=== PATIENT | female | born 1935 | race Caucasian/White ===

== ENCOUNTER 2017-04-06 13:37 | Inpatient (IN) | payer MEDICARE, SELFPAY ==
[2017-04-06 13:39] VITALS: BP 168/54; PULSE 54; RESP 16; TEMP 36.9; O2SAT 96; BMI 23.1
--- NOTE | 2017-04-06 14:00 | EKG12_ITS ---
Test Reason : DIZZINESS Blood Pressure : / mmHG Vent. Rate : 050 BPM Atrial Rate : 050 BPM P-R Int : 168 ms QRS Dur : 096 ms QT Int : 512 ms P-R-T Axes : 070 043 057 degrees QTc Int : 466 ms Sinus bradycardia Low voltage QRS (limb leads) Confirmed by LETA TURNER, CAROLYNE ([id number]), film editor supervisor VICTORIA FRANCO ([id number]) on 04/09/2017 11:22:18 AM Referred By: Shavonne Riley Confirmed By:CAROLYNE GILLETTE MD
--- NOTE | 2017-04-06 14:00 | CT_ITS ---
STUDY: CT BRAIN WITHOUT CONTRAST REASON FOR EXAM: Female, 82 years old. Frequent falls. RADIATION DOSAGE (If Supplied By Facility): CTDIvol = ( 44.99 ) mGy, DLP = ( 728.62 ) mGycm TECHNIQUE: Transaxial CT imaging of the brain was performed without administration of intravenous contrast material. Individualized dose optimization techniques were used for this CT. COMPARISON: Comparison is made with prior study dated December 29, 2012. FINDINGS: Normal soft tissue structures. Normal calvarium. There is mild cerebral atrophy with widening of the extra-axial spaces and ventricular dilatation. There are areas of decreased attenuation within the white matter tracts of the supratentorial brain, consistent with microvascular disease changes. Normal basal ganglia and thalami. Normal brainstem. There is mild cerebellar atrophy. There is no intracranial hemorrhage. There are no findings of an acute ischemic infarction. Atherosclerotic calcification of the vertebral arteries and cavernous portions of the internal carotid arteries bilaterally. Normal visualized paranasal sinuses. CT/Brain/Head without Contrast IMPRESSION: Chronic involutional changes of the brain. Electronically Signed: Earl Zheng MD at 15:03 EST Tel [phone], Service support ,
--- NOTE | 2017-04-06 14:28 | RAD_ITS ---
STUDY: X-RAY - LUMBAR SPINE REASON FOR EXAM: Female, 82 years old. History of trauma. Recent fall. Low back pain. TECHNIQUE: 3 view(s) of the lumbar spine were obtained. COMPARISON: Comparison is made with prior examination dated April 13, 2013. FINDINGS: Normal lumbar lordosis. There is no substantial scoliosis. Grade 1 anterolisthesis of L5 on S1. This is unchanged. 50% loss of height of the L3 vertebrae. This is new as compared to prior study. There is multi-level degenerative disc disease with multi-level disc space narrowing. There is atherosclerotic calcification of the abdominal aorta without a demonstrated aneurysm. RAD/Lumbar Spine 2 or 3 Views IMPRESSION: Degenerative changes of the spine, as detailed above. 50% loss of height of the L5 vertebra which is new as compared to prior study. Electronically Signed: Earl Zheng MD at 15:02 EST Tel [phone], Service support ,
[2017-04-06 14:34] LABS: Absolute Lymphocyte Count 1.82 X10^3/ul (0.83-4.51); Absolute Neutrophil Count 7.6 X10^3/uL (2.0-7.7); Basophil# 0.03 X10^3/uL; Basophil% 0.3 % (0-1); Eosinophil# 0.42 X10^3/uL; Hematocrit 34.5 % (37-47); Lymphocyte # 1.82 X10^3/ul (4.0); Lymphocyte % 17.1 % (19-41); Mean Corp Hgb Conc 31.9 g/gl (32-36); Mean Corpuscular Volume 87.8 fL (81-99); Mean Platelet Vol. 11.7 fl (6.2-12.0); Monocyte# 0.74 X10^3/uL; Neutrophil % 71.4 % (47-70); Platelet Count 220 K/mm3 (150-450); RBC Distribution Width SD 47.4 fl (35.1-43.9); Red Blood Count 3.93 M/mm3 (4.2-5.4); White Blood Count 10.6 K/mm3 (4.4-11.0)
[2017-04-06 14:40] LABS: POSITIVE COUNT NO; POSITIVE DIFFERENTIAL NO; POSITIVE MORPHOLOGY NO
[2017-04-06 14:43] LABS: AST(SGOT) 13 U/L (15-37); Alanine Aminotransfer ALT/SGPT 24 U/L (13-56); Albumin, Serum 3.2 g/dL (3.2-5.0); Alkaline Phosphatase 96 U/L (45-117); Anion Gap 10 (5-15); BUN 23 mg/dL (7-18); BUN/Creat Ratio 27.8 RATIO (10-20); Bilirubin, Direct 0.14 mg/dL (0.00-0.30); Calcium,Total 9.2 mg/dL (8.5-10.1); Chloride 109 mmol/L (98-107); Creatinine, Serum 0.83 mg/dL (0.55-1.02); EST Glomerular Filtration Rate 70 mL/min (>60); Est Glom Filt Rate - Afr Amer 85 mL/min (>60); Globulin 3.7 g/dL (2.2-4.2); Glucose 154 mg/dL (70-110); Potassium 4.5 mmol/L (3.5-5.1); Protein, Total 6.9 g/dL (6.4-8.2); Sodium Level 141 mmol/L (136-145)
[2017-04-06 15:31] LABS: Mucous, Urine 0 SEEN /hpf (<or=2+); Red Blood Cells-Urine 0 SEEN /hpf (0-5); Squamous Epithelial Cells - UA 0 SEEN /hpf (5-10); White Blood Cells 0 SEEN /hpf (0-5)
--- NOTE | 2017-04-06 15:33 | CASEMGMT ---
Addendum entered by Elsy Santos 04/06/17 16:52: Discussed with Dr. Umaña; pt's family unable to meet care needs at home, pt with recent history of multiple falls. Pt to be admitted with residential placement anticipated. Spoke with pt's son and DIL, who reported their first choice for SNF is [facility]. Referral to inpt SW completed. Original Note: Referral received from Dr. Umaña; pt's family reporting concerns regarding their ability to meet pt's care needs at home. Met with pt's dgtr to discuss. Dgtr voiced multiple concerns including fear that pt's cancer has returned. Dgtr reviewed pt's recent medical history and reported that pt is presently receiving home health PT, OT, and RN through [facility]. Dgtr resides with pt and provides 24hr care but said she is unable to hear pt moving about in the night. Discussed options for monitoring pt at home. Dgtr said that she has health concerns/physical limitations of her own and that she had been working with Yong home health social service technician, to develop a plan. Dgtr several times directed this worker to talk to Yong re: the plan for pt. Pt was in radiology during this conversation; results pending. Spoke with Yong Dunn, home health social service technician, who confirmed her understanding of dgtr's limitations as well as pt's increasing care needs, and said that she had intended to speak with dgtr re: possible residential placement. Awaiting imaging results.
[2017-04-06 15:45] VITALS: PULSE 53; RESP 12; O2SAT 97
[2017-04-06 15:56] LABS: Color, Urine Yellow (Yellow); Glucose, Dipstick Normal (Normal); Ketone-Dipstick Negative (Negative); Leukocyte Esterase-Dipstick 25 /ul (Negative); Nitrite-Dipstick Negative (Negative); Occult Blood-Urine Negative /ul (Negative); Protein-Dipstick Negative (Negative); Urine Bilirubin Dipstick Negative (Negative); Urine Clarity Sl. Cloudy (Clear); Urine Urobilinogen Normal (Normal)
[2017-04-06 16:09] LABS: Bacteria 2+ /hpf (None Seen)
--- NOTE | 2017-04-06 16:37 | ED.VISSUMM ---
- ER Visit Summary Date of Service: 04/06/17 Chief Complaint: Generalized weakness and repeated falls. History of Present Illness: The patient is a [address] Galvan. Daughter reports that she has weakness that began on March 26 that is been gradually increasing. States she has gotten to the point where she is not even able to use her walker anymore. She reports patient's had 5 falls in the past week alone. 2 days ago she fell back onto the bed while trying to get up and using the bedside commode. She fell again today. Daughter is unable to care for her at home anymore. Patient reports that she has been lower back pain is 8 out of 10 with movement and 2 out of 10 at rest. She denies any shoulder, wrist, hip, or neck pain. Physical Examination: Vitals: 98.5, 160/54, 54, 16, 96% room air which is not hypoxic. General: Well-nourished and well-developed. Head: Normocephalic atraumatic. Neck: Supple, no lymphadenopathy. No JVD. Nontender. Cardiovascular: Regular bradycardic rhythm with 2 out of 6 systolic murmur. Respiratory: No respiratory distress. Clear to auscultation bilaterally. Abdominal: Soft, nontender, nondistended, normal bowel sounds. No guarding, rebound, or peritoneal signs. Back: Moderate tenderness to palpation over the lower lumbar spine. Extremities: Nontender, no edema. Skin: Normal color, no rash. Neurologic: Alert and oriented ?3. Cranial nerves II through XII are intact. Normal sensation. 4 out of 5 strength throughout. Psych: Normal affect. Test Results: EKG is sinus bradycardia at 50 with no acute changes. LS spine shows an L5 compression fracture that is 50%. CBC is marked for an H&H of 11.0 34.5, segmented neutrophils 71, lymphocytes 17. Chem-7 is more for chloride 109, glucose 144, BUN 23. LFTs marked for an AST of 13. Urine is negative. Troponin is less than 0.02. CT brain shows chronic changes. Emergency Department Course and Treatment: Patient refused pain medications. She was seen by case management in the emergency department. Treatment Plan: At this time patient was discussed with Dr. Najera. She will be admitted to the hospital for further evaluation and treatment. Disposition: Admitted in stable condition. Impression: 1. Sinus bradycardia. 2. Repeated falls. 3. New L5 compression fracture. 4. Generalized weakness. This note was generated with [employer] dictation software. It may contain incorrect words, spelling, and punctuation that were not noted in review of the chart prior to signing ED Disposition - Plan for ED Patient: Chief Complaint: Dizziness Referrals: Christian Galvan DO [Primary Care Provider] -
[2017-04-06 16:42] VITALS: PULSE 52; RESP 13; TEMP 36.9; O2SAT 96
[2017-04-06 17:16] VITALS: BMI 23.1
[2017-04-06 17:29] VITALS: BP 177/48; PULSE 54; RESP 17; O2SAT 97
[2017-04-06 17:30] VITALS: BP 177/48; PULSE 52; RESP 18; TEMP 36.9; O2SAT 97
[2017-04-06 18:16] VITALS: BMI 22.6
--- NOTE | 2017-04-06 18:26 | PCM.HP.STD ---
<Stephan Laguna - Last Filed: 04/06/17 19:10> Problem List (1) Generalized weakness Status: Acute (2) Confusion Status: Acute (3) Compression fracture Status: Acute (4) Paroxysmal atrial fibrillation Status: Chronic (5) Anemia Status: Chronic (6) Malignant neoplasm of right colon Status: Chronic (7) Diabetes mellitus type 2 in nonobese Status: Chronic (8) Hypertension Status: Chronic (9) Dyslipidemia Status: Chronic (10) Coronary artery disease Status: Chronic History of Present Illness Date of Admission: 04/06/17 Chief Complaint: weakness fall The patient is a 82 year old F who presents to the ER with severe weakness and multiple falls. She has a hx of colon cancer for which she underwent a partial colectomy 4 months ago, has PAF, diastolic CHF, CAD, DMt2, anemia, HTN. Her daughter is her primary caregiver and present today, noting that on Mar 26 she suddenly began to be much more weaker than normal. This progressively worsened to being much more severe over the last 3 days and the pt has fallen about 5 times at home. Prior to the she was independent and functional without these difficulties. Now she seems to be unable to stand or walk on her own. She is more confused than normal (does have some underlying confusion but daughter states no dx of dementia) as well and the daughter is concerned that these symptoms are similar to when she was found to have cancer. Recently a CEA level was done and was elevated. She falls when trying to transfer from chair to commode. She fell into a sitting position and has lower back pain bilaterally, however her weakness was present prior to this fall and pain. No radiation into the legs. No saddle paraesthesias or new incontinence, or numbness or tingling in her feet. She denies dizziness or LH around these falls. She did not hit her head or lose consciousness. Her daughter feels her left side is weaker than her right, noting that when she tries to help her get up she cannot lift her left leg at all. She had on episode of vomiting and diarrhea two days ago. No blood in her stools. Chronic black stools related to PO iron. Pt was supposed to have an outpatient MRI to have these symptoms looked into but has not had them done yet. [] Past Medical History Past Medical History (Chronic Problems): Chronic Problems (Last Reviewed 04/01/17 @ 13:59 by Diana Santos) Paroxysmal atrial fibrillation (Chronic) HLD (hyperlipidemia) (Chronic) HTN (hypertension) (Chronic) Diabetes mellitus (Chronic) Abnormal electrocardiogram (Chronic) Abnormal stress test (Chronic) Other rat exterminator (current) drug therapy (Chronic) Hypokalemia (Chronic) Left carotid bruit (Chronic) Atherosclerotic heart disease of [place] coronary artery without angina pectoris (Chronic) Anemia (Chronic) Malignant neoplasm of right colon (Chronic) Anemia (Chronic) Iron deficiency anemia due to chronic blood loss (Chronic) Diabetes mellitus type 2 in nonobese (Chronic) Hypertension (Chronic) Dyslipidemia (Chronic) CVD (cerebrovascular disease) (Chronic) Coronary artery disease (Chronic) Ca left breast s/p left mastectomy (Chronic) In [place],no adjuvant Rx given Allergies sulfamethoxazole [From Bactrim] Allergy (Verified 03/27/17 11:30) Other trimethoprim [From Bactrim] Allergy (Verified 03/27/17 11:30) Other ibuprofen Adverse Reaction (Verified 03/27/17 11:30) Nausea DAIRY Allergy (Uncoded 03/27/17 11:30) Unknown IVP dye Allergy (Uncoded 03/27/17 11:30) Unknown family member have anaphylaxis so she prefers premed. Home Medications: Ambulatory Orders Medication Instructions Recorded Lovastatin [Mevacor] 80 mg PO QHS 04/13/13 Metformin HCl [Glucophage] 500 mg PO BIDCM 04/13/13 Amlodipine [Norvasc] 5 mg PO QHS 05/11/14 Losartan Potassium [Cozaar] 100 mg PO DAILY 05/11/14 Temazepam [Restoril] 15 mg PO QHS 05/11/14 Cholecalciferol (Vitamin D3) 2,000 unit PO DAILY 10/31/16 [Vitamin D3] Biotin 5,000 mcg PO DAILY 11/25/16 Metoprolol Succinate [Toprol Xl] 100 mg PO DINNER 12/05/16 Omeprazole 40 mg PO QHS 12/05/16 Terazosin HCl 5 mg PO QHS 12/05/16 Aspirin [Aspirin, Baby] 81 mg PO DAILY@0800 01/27/17 Clopidogrel Bisulfate [Plavix] 75 mg PO QHS 01/27/17 Cyanocobalamin (Vitamin B-12) 1,000 mcg PO DAILY 01/27/17 [Vitamin B-12] Ferrous Sulfate 325 mg PO BIDCM 01/27/17 Amiodarone HCl [Cordarone] 200 mg PO QHS 04/06/17 Furosemide [Lasix] 10 mg PO DAILY 04/06/17 Potassium Chloride [K-Dur] 10 meq PO 4X/DAY 04/06/17 Surgical History: colectomy, - - Laparoscopic right hemicolectomy Psychiatric History: No pertinent psych hx 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 Lives: With Family Smoking Status: Former smoker Tobacco Use: Non-smoker Alcohol: None Drugs: None - *Family History Paternal Family History: Family History (Last Reviewed 04/01/17 @ 14:01 by Diana Santos) Mother CAD (coronary artery disease) Diabetes Brother CAD (coronary artery disease) Cancer Son CAD (coronary artery disease) CVA (cerebral vascular accident) Myocardial infarction Hx of CABG Father Cancer Diabetes Brother Diabetes Hypertension Alzheimers disease Brother CVA (cerebral vascular accident) Brother CAD (coronary artery disease) Cancer Brother CVA (cerebral vascular accident) Brother Diabetes Brother Cancer Diabetes Sister Diabetes Sister CVA (cerebral vascular accident) Sister Diabetes Sister CVA (cerebral vascular accident) Hypertension Diabetes Alzheimers disease Sister Diabetes Rheumatic fever Sister Cancer Hypertension Diabetes Hx of CABG Daughter Diabetes Hypertension Graves disease History Items: No pertinent history Maternal Family History: Family History (Last Reviewed 04/01/17 @ 14:01 by Diana Santos) Mother CAD (coronary artery disease) Diabetes Brother CAD (coronary artery disease) Cancer Son CAD (coronary artery disease) CVA (cerebral vascular accident) Myocardial infarction Hx of CABG Father Cancer Diabetes Brother Diabetes Hypertension Alzheimers disease Brother CVA (cerebral vascular accident) Brother CAD (coronary artery disease) Cancer Brother CVA (cerebral vascular accident) Brother Diabetes Brother Cancer Diabetes Sister Diabetes Sister CVA (cerebral vascular accident) Sister Diabetes Sister CVA (cerebral vascular accident) Hypertension Diabetes Alzheimers disease Sister Diabetes Rheumatic fever Sister Cancer Hypertension Diabetes Hx of CABG Daughter Diabetes Hypertension Graves disease History Items: No pertinent history Review of Systems Constitutional: Reports: Weakness, Fatigue. Denies: Chills, Fever, Weight Change Eyes: Denies: Blurred vision, Double vision, Vision Change HEENT: Denies: Difficulty Hearing, Hard of Hearing, Head Aches, Nasal bleeding, Sinus Congestion, Sinus Drainage Cardiovascular: Denies: Chest Pain, Palpitations Respiratory: Denies: Cough, Shortness of breath at rest, Sputum production Gastrointestinal: Denies: Abdominal Pain, Nausea, Vomiting Genitourinary: Denies: Dysuria Musculoskeletal: Denies: Joint Pain, Joint Tenderness Skin: Denies: Rash, Wounds Neurological: Reports: Balance problems, Confusion, Focal weakness - possibly Right worse than Left foot.. Denies: Blurred vision, Double vision, Change in Speech, Slurred speech, Headaches, Numbness, Tingling, Tremor Psychiatric: Denies: Anxiety, Depression, Homicidal Ideations, Suicidal Ideations Hematologic/ Lymphatic: Denies: Easy Bruising, Easy Bleeding VTE Information - Inpt Only VTE Present on Admission: No VTE Mechan Device Prophylaxis: SCD's VTE Pharm Prophylaxis ordered?: Yes Patient Problems: Active and Suspected Problems (Last Reviewed 04/01/17 @ 13:59 by Diana Santos) Confusion (Acute) Compression fracture (Acute) - Physical Exam General: Alert, Oriented x3, Cooperative HEENT: Atraumatic, PERRLA, EOMI, Normocephalic Neck: Supple, No JVD, Negative Carotid Bruits Lungs: Clear to auscultation, Normal air movement Cardiovascular: Regular rate, No murmurs Abdomen: Bowel Sounds Present, Soft, Non Tender Extremities: No edema, Capillary Refill Less than 3 Seconds Skin: No rashes, No breakdown Musculoskeletal: No Tenderness to Palpation of Joints or Extremities Neurological: Cranial nerves II-XII grossly intact Psych/Mental Status: Normal Affect, Appropriate Vital Signs Temp Pulse Resp BP Pulse Ox 98.5 F 52 L 18 177/48 H 97 04/06/17 17:30 04/06/17 17:30 04/06/17 17:30 04/06/17 17:30 04/06/17 17:30 Oxygen Delivery Method Room Air Assessment/Plan Active and Suspected Problems (Last Reviewed 04/01/17 @ 13:59 by Diana Santos) Confusion (Acute) Compression fracture (Acute) 1. Generalized weakness - drastically worsened since March 26 with multiple falls in the past 3 days and an L5 compression fracture seen on XR in the ER. Possibly some right sided weakness > Left side and pt more confused lately. Pt was independent and ambulatory until the . Pt very HTN in the ER with systolic into 190's. Concern for Stroke vs Metastatic disease from Recently treated Colon CA and now elevated CEA level. Will admit and do MRI of the brain. CT brain with chronic changes in the ER. Trop neg. UA negative. Will also check TSH. 2. L5 compression fracture - see xr, 2/2 fall at home. supportive care. PTOT 3. PAF - rate controlled. On amio, toprol. Last echo 2014 EF 70% PASP 34 mmHg, 1+ MVI. Not on OAC likely as she had GI bleeding in the past with Colon CA and hx epistaxis. 4. CAD - aspirin, plavix, ARB, lovastatin, norvasc, terazosin 5. DMt2 - Metformin 6. Colorectal CA - treated with resection in November, recent CEA was elevated. No abdominal pain lately, no bloody stools. 7. Chronic anemia - mild. continue iron. DVT ppx: lovenox DC planning: likely needs placed with severe weakness and multiple falls. This patient was seen by Stephan Laguna PA-C under the supervision of Doctor Reinaldo. <Noe Najera - Last Filed: 04/06/17 20:02> History of Present Illness Seen and examined Discussed with the patient's daughter present in the room. Overall, patient complained of generalized weakness and multiple fall ?5 for last 1-2 weeks. Patient recently had epistaxis for which she had cauterization done by ENT Dr. Solorio. [] She also has history of colon cancer for which CEA was ordered and is 7.1 on 03/17/2017. She was furthermore ordered some imaging test of possible CT scan of abdomen and pelvis and MRI of brain ordered. She also has sinus bradycardia on the EKG. She has history of paroxysmal A. fib but not on anticoagulant because of history of bleeding. She had laparoscopic right hemicolectomy converted open by Dr. Reynaga in November 2016. Past Medical History Allergies sulfamethoxazole [From Bactrim] Allergy (Verified 03/27/17 11:30) Other trimethoprim [From Bactrim] Allergy (Verified 03/27/17 11:30) Other ibuprofen Adverse Reaction (Verified 03/27/17 11:30) Nausea IVP dye Allergy (Uncoded 03/27/17 11:30) Unknown family member have anaphylaxis so she prefers premed. - *Family History Paternal Family History: Family History (Last Reviewed 04/01/17 @ 14:01 by Diana Santos) Mother CAD (coronary artery disease) Diabetes Brother CAD (coronary artery disease) Cancer Son CAD (coronary artery disease) CVA (cerebral vascular accident) Myocardial infarction Hx of CABG Father Cancer Diabetes Brother Diabetes Hypertension Alzheimers disease Brother CVA (cerebral vascular accident) Brother CAD (coronary artery disease) Cancer Brother CVA (cerebral vascular accident) Brother Diabetes Brother Cancer Diabetes Sister Diabetes Sister CVA (cerebral vascular accident) Sister Diabetes Sister CVA (cerebral vascular accident) Hypertension Diabetes Alzheimers disease Sister Diabetes Rheumatic fever Sister Cancer Hypertension Diabetes Hx of CABG Daughter Diabetes Hypertension Graves disease Maternal Family History: Family History (Last Reviewed 04/01/17 @ 14:01 by Diana Santos) Mother CAD (coronary artery disease) Diabetes Brother CAD (coronary artery disease) Cancer Son CAD (coronary artery disease) CVA (cerebral vascular accident) Myocardial infarction Hx of CABG Father Cancer Diabetes Brother Diabetes Hypertension Alzheimers disease Brother CVA (cerebral vascular accident) Brother CAD (coronary artery disease) Cancer Brother CVA (cerebral vascular accident) Brother Diabetes Brother Cancer Diabetes Sister Diabetes Sister CVA (cerebral vascular accident) Sister Diabetes Sister CVA (cerebral vascular accident) Hypertension Diabetes Alzheimers disease Sister Diabetes Rheumatic fever Sister Cancer Hypertension Diabetes Hx of CABG Daughter Diabetes Hypertension Graves disease - Physical Exam General: Alert, Oriented x3, Cooperative HEENT: Atraumatic, PERRLA, EOMI, Normocephalic Neck: Supple, No JVD, Negative Carotid Bruits Lungs: Clear to auscultation, Normal air movement Cardiovascular: Regular rate, Regular Rhythm, Normal S1, Normal S2, No murmurs Abdomen: Bowel Sounds Present, Soft, Non Tender Extremities: No edema, Capillary Refill Less than 3 Seconds Skin: No rashes, Ulcer/ Wound - Small decubitus ulcers present on the right buttock stage II. Right heel has eschar, unstageable. Musculoskeletal: No Tenderness to Palpation of Joints or Extremities, Arthritic Changes Neurological: Cranial nerves II-XII grossly intact Psych/Mental Status: Normal Affect, Appropriate Vital Signs Temp Pulse Resp BP Pulse Ox 97.8 F 53 L 16 132/64 H 97 04/06/17 18:34 04/06/17 18:34 04/06/17 18:34 04/06/17 18:34 04/06/17 18:34 Oxygen Delivery Method Room Air Weight: 131 lb 13.383 oz Body Mass Index (BMI) 22.6 Assessment/Plan This patient was seen in conjunction with Stephan ARTHUR. I have independently interviewed and examined the patient and reviewed pertinent history, examination findings, laboratory and plan of management. I have reviewed the note and agree with the documented findings with the few additional points. In brief, patient is admitted for generalized weakness with recurrent fall. She had L5 compression fracture as mentioned above. Her daughter is concerned that her weakness might be due to cancer. Will consult Dr. Decker. CEA slightly elevated. Besides that she has sinus bradycardia. She is on amiodarone 200 mg daily at bedtime, will decrease 100 mg at bedtime and hold it if heart rate is less than 60/min. TSH, MRI brain, 2D echo are ordered. Her tread cutter is Dr. andrade and if needed can consult him. I have discussed my assessment with Stephan ARTHUR and orders have been reviewed. Code Visit Inpatient E&M: 24990 Init Hosp L3
--- NOTE | 2017-04-06 18:31 | HP.PCM_ITS ---
Addendum entered and electronically signed by SANDHYA Jules 04/06/17 19:11: Code Visit Plan addendum: added Oncology consult. Added Echo. Also will hold metformin and use SSI. Original Note: <Stephan Laguna - Last Filed: 04/06/17 19:10> Problem List (1) Generalized weakness Status: Acute (2) Confusion Status: Acute (3) Compression fracture Status: Acute (4) Paroxysmal atrial fibrillation Status: Chronic (5) Anemia Status: Chronic (6) Malignant neoplasm of right colon Status: Chronic (7) Diabetes mellitus type 2 in nonobese Status: Chronic (8) Hypertension Status: Chronic (9) Dyslipidemia Status: Chronic (10) Coronary artery disease Status: Chronic History of Present Illness Date of Admission: 04/06/17 Chief Complaint: weakness fall The patient is a 82 year old F who presents to the ER with severe weakness and multiple falls. She has a hx of colon cancer for which she underwent a partial colectomy 4 months ago, has PAF, diastolic CHF, CAD, DMt2, anemia, HTN. Her daughter is her primary caregiver and present today, noting that on Mar 26 she suddenly began to be much more weaker than normal. This progressively worsened to being much more severe over the last 3 days and the pt has fallen about 5 times at home. Prior to the she was independent and functional without these difficulties. Now she seems to be unable to stand or walk on her own. She is more confused than normal (does have some underlying confusion but daughter states no dx of dementia) as well and the daughter is concerned that these symptoms are similar to when she was found to have cancer. Recently a CEA level was done and was elevated. She falls when trying to transfer from chair to commode. She fell into a sitting position and has lower back pain bilaterally , however her weakness was present prior to this fall and pain. No radiation into the legs. No saddle paraesthesias or new incontinence, or numbness or tingling in her feet. She denies dizziness or LH around these falls. She did not hit her head or lose consciousness. Her daughter feels her left side is weaker than her right, noting that when she tries to help her get up she cannot lift her left leg at all. She had on episode of vomiting and diarrhea two days ago. No blood in her stools. Chronic black stools related to PO iron. Pt was supposed to have an outpatient MRI to have these symptoms looked into but has not had them done yet. 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) Hypokalemia (Chronic) Left carotid bruit (Chronic) Atherosclerotic heart disease of knik coronary artery without angina pectoris (Chronic) Anemia (Chronic) Malignant neoplasm of right colon (Chronic) Anemia (Chronic) Iron deficiency anemia due to chronic blood loss (Chronic) Diabetes mellitus type 2 in nonobese (Chronic) Hypertension (Chronic) Dyslipidemia (Chronic) CVD (cerebrovascular disease) (Chronic) Coronary artery disease (Chronic) Ca left breast s/p left mastectomy (Chronic) In [place],no adjuvant Rx given Allergies sulfamethoxazole [From Bactrim] Allergy (Verified 03/27/17 11:30) Other trimethoprim [From Bactrim] Allergy (Verified 03/27/17 11:30) Other ibuprofen Adverse Reaction (Verified 03/27/17 11:30) Nausea DAIRY Allergy (Uncoded 03/27/17 11:30) Unknown IVP dye Allergy (Uncoded 03/27/17 11:30) Unknown family member have anaphylaxis so she prefers premed. Home Medications: Ambulatory Orders Medication Instructions Recorded Lovastatin [Mevacor] 80 mg PO QHS 04/13/13 Metformin HCl [Glucophage] 500 mg PO BIDCM 04/13/13 Amlodipine [Norvasc] 5 mg PO QHS 05/11/14 Losartan Potassium [Cozaar] 100 mg PO DAILY 05/11/14 Temazepam [Restoril] 15 mg PO QHS 05/11/14 Cholecalciferol (Vitamin D3) 2,000 unit PO DAILY 10/31/16 [Vitamin D3] Biotin 5,000 mcg PO DAILY 11/25/16 Metoprolol Succinate [Toprol Xl] 100 mg PO DINNER 12/05/16 Omeprazole 40 mg PO QHS 12/05/16 Terazosin HCl 5 mg PO QHS 12/05/16 Aspirin [Aspirin, Baby] 81 mg PO DAILY@0800 01/27/17 Clopidogrel Bisulfate [Plavix] 75 mg PO QHS 01/27/17 Cyanocobalamin (Vitamin B-12) 1,000 mcg PO DAILY 01/27/17 [Vitamin B-12] Ferrous Sulfate 325 mg PO BIDCM 01/27/17 Amiodarone HCl [Cordarone] 200 mg PO QHS 04/06/17 Furosemide [Lasix] 10 mg PO DAILY 04/06/17 Potassium Chloride [K-Dur] 10 meq PO 4X/DAY 04/06/17 Surgical History: colectomy, - - Laparoscopic right hemicolectomy Psychiatric History: No pertinent psych hx 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 pertinent TERRESTRIAL ECOLOGIST history Lives: With Family Smoking Status: Former smoker Tobacco Use: Non-smoker Alcohol: None Drugs: None - *Family History Paternal Family History: Family History (Last Reviewed 04/01/17 @ 14:01 by Diana Santos) Mother CAD (coronary artery disease) Diabetes Brother CAD (coronary artery disease) Cancer Son CAD (coronary artery disease) CVA (cerebral vascular accident) Myocardial infarction Hx of CABG Father Cancer Diabetes Brother Diabetes Hypertension Alzheimers disease Brother CVA (cerebral vascular accident) Brother CAD (coronary artery disease) Cancer Brother CVA (cerebral vascular accident) Brother Diabetes Brother Cancer Diabetes Sister Diabetes Sister CVA (cerebral vascular accident) Sister Diabetes Sister CVA (cerebral vascular accident) Hypertension Diabetes Alzheimers disease Sister Diabetes Rheumatic fever Sister Cancer Hypertension Diabetes Hx of CABG Daughter Diabetes Hypertension Graves disease History Items: No pertinent history Maternal Family History: Family History (Last Reviewed 04/01/17 @ 14:01 by Diana Santos) Mother CAD (coronary artery disease) Diabetes Brother CAD (coronary artery disease) Cancer Son CAD (coronary artery disease) CVA (cerebral vascular accident) Myocardial infarction Hx of CABG Father Cancer Diabetes Brother Diabetes Hypertension Alzheimers disease Brother CVA (cerebral vascular accident) Brother CAD (coronary artery disease) Cancer Brother CVA (cerebral vascular accident) Brother Diabetes Brother Cancer Diabetes Sister Diabetes Sister CVA (cerebral vascular accident) Sister Diabetes Sister CVA (cerebral vascular accident) Hypertension Diabetes Alzheimers disease Sister Diabetes Rheumatic fever Sister Cancer Hypertension Diabetes Hx of CABG Daughter Diabetes Hypertension Graves disease History Items: No pertinent history Review of Systems Constitutional: Reports: Weakness, Fatigue. Denies: Chills, Fever, Weight Change Eyes: Denies: Blurred vision, Double vision, Vision Change HEENT: Denies: Difficulty Hearing, Hard of Hearing, Head Aches, Nasal bleeding, Sinus Congestion, Sinus Drainage Cardiovascular: Denies: Chest Pain, Palpitations Respiratory: Denies: Cough, Shortness of breath at rest, Sputum production Gastrointestinal: Denies: Abdominal Pain, Nausea, Vomiting Genitourinary: Denies: Dysuria Musculoskeletal: Denies: Joint Pain, Joint Tenderness Skin: Denies: Rash, Wounds Neurological: Reports: Balance problems, Confusion, Focal weakness - possibly Right worse than Left foot.. Denies: Blurred vision, Double vision, Change in Speech, Slurred speech, Headaches, Numbness, Tingling, Tremor Psychiatric: Denies: Anxiety, Depression, Homicidal Ideations, Suicidal Ideations Hematologic/ Lymphatic: Denies: Easy Bruising, Easy Bleeding VTE Information - Inpt Only VTE Present on Admission: No VTE Mechan Device Prophylaxis: SCD's VTE Pharm Prophylaxis ordered?: Yes Patient Problems: Active and Suspected Problems (Last Reviewed 04/01/17 @ 13:59 by Diana Santos) Confusion (Acute) Compression fracture (Acute) - Physical Exam General: Alert, Oriented x3, Cooperative HEENT: Atraumatic, PERRLA, EOMI, Normocephalic Neck: Supple, No JVD, Negative Carotid Bruits Lungs: Clear to auscultation, Normal air movement Cardiovascular: Regular rate, No murmurs Abdomen: Bowel Sounds Present, Soft, Non Tender Extremities: No edema, Capillary Refill Less than 3 Seconds Skin: No rashes, No breakdown Musculoskeletal: No Tenderness to Palpation of Joints or Extremities Neurological: Cranial nerves II-XII grossly intact Psych/Mental Status: Normal Affect, Appropriate Vital Signs Temp Pulse Resp BP Pulse Ox 98.5 F 52 L 18 177/48 H 97 04/06/17 17:30 04/06/17 17:30 04/06/17 17:30 04/06/17 17:30 04/06/17 17:30 Oxygen Delivery Method Room Air Assessment/Plan Active and Suspected Problems (Last Reviewed 04/01/17 @ 13:59 by Diana Santos) Confusion (Acute) Compression fracture (Acute) 1. Generalized weakness - drastically worsened since March 26 with multiple falls in the past 3 days and an L5 compression fracture seen on XR in the ER. Possibly some right sided weakness > Left side and pt more confused lately. Pt was independent and ambulatory until the . Pt very HTN in the ER with systolic into 190's. Concern for Stroke vs Metastatic disease from Recently treated Colon CA and now elevated CEA level. Will admit and do MRI of the brain. CT brain with chronic changes in the ER. Trop neg. UA negative. Will also check TSH. 2. L5 compression fracture - see xr, 2/2 fall at home. supportive care. PTOT 3. PAF - rate controlled. On amio, toprol. Last echo 2014 EF 70% PASP 34 mmHg, 1 + MVI. Not on OAC likely as she had GI bleeding in the past with Colon CA and hx epistaxis. 4. CAD - aspirin, plavix, ARB, lovastatin, norvasc, terazosin 5. DMt2 - Metformin 6. Colorectal CA - treated with resection in November, recent CEA was elevated. No abdominal pain lately, no bloody stools. 7. Chronic anemia - mild. continue iron. DVT ppx: lovenox DC planning: likely needs placed with severe weakness and multiple falls. This patient was seen by Stephan Laguna PA-C under the supervision of Doctor Reinaldo. <Noe Najera - Last Filed: 04/06/17 20:02> History of Present Illness Seen and examined Discussed with the patient's daughter present in the room. Overall, patient complained of generalized weakness and multiple fall ?5 for last 1-2 weeks. Patient recently had epistaxis for which she had cauterization done by ENT Dr. Solorio. [] She also has history of colon cancer for which CEA was ordered and is 7.1 on 03/17/2017. She was furthermore ordered some imaging test of possible CT scan of abdomen and pelvis and MRI of brain ordered. She also has sinus bradycardia on the EKG. She has history of paroxysmal A. fib but not on anticoagulant because of history of bleeding. She had laparoscopic right hemicolectomy converted open by Dr. Reynaga in November 2016. Past Medical History Allergies sulfamethoxazole [From Bactrim] Allergy (Verified 03/27/17 11:30) Other trimethoprim [From Bactrim] Allergy (Verified 03/27/17 11:30) Other ibuprofen Adverse Reaction (Verified 03/27/17 11:30) Nausea IVP dye Allergy (Uncoded 03/27/17 11:30) Unknown family member have anaphylaxis so she prefers premed. - *Family History Paternal Family History: Family History (Last Reviewed 04/01/17 @ 14:01 by Diana Santos) Mother CAD (coronary artery disease) Diabetes Brother CAD (coronary artery disease) Cancer Son CAD (coronary artery disease) CVA (cerebral vascular accident) Myocardial infarction Hx of CABG Father Cancer Diabetes Brother Diabetes Hypertension Alzheimers disease Brother CVA (cerebral vascular accident) Brother CAD (coronary artery disease) Cancer Brother CVA (cerebral vascular accident) Brother Diabetes Brother Cancer Diabetes Sister Diabetes Sister CVA (cerebral vascular accident) Sister Diabetes Sister CVA (cerebral vascular accident) Hypertension Diabetes Alzheimers disease Sister Diabetes Rheumatic fever Sister Cancer Hypertension Diabetes Hx of CABG Daughter Diabetes Hypertension Graves disease Maternal Family History: Family History (Last Reviewed 04/01/17 @ 14:01 by Diana Santos) Mother CAD (coronary artery disease) Diabetes Brother CAD (coronary artery disease) Cancer Son CAD (coronary artery disease) CVA (cerebral vascular accident) Myocardial infarction Hx of CABG Father Cancer Diabetes Brother Diabetes Hypertension Alzheimers disease Brother CVA (cerebral vascular accident) Brother CAD (coronary artery disease) Cancer Brother CVA (cerebral vascular accident) Brother Diabetes Brother Cancer Diabetes Sister Diabetes Sister CVA (cerebral vascular accident) Sister Diabetes Sister CVA (cerebral vascular accident) Hypertension Diabetes Alzheimers disease Sister Diabetes Rheumatic fever Sister Cancer Hypertension Diabetes Hx of CABG Daughter Diabetes Hypertension Graves disease - Physical Exam General: Alert, Oriented x3, Cooperative HEENT: Atraumatic, PERRLA, EOMI, Normocephalic Neck: Supple, No JVD, Negative Carotid Bruits Lungs: Clear to auscultation, Normal air movement Cardiovascular: Regular rate, Regular Rhythm, Normal S1, Normal S2, No murmurs Abdomen: Bowel Sounds Present, Soft, Non Tender Extremities: No edema, Capillary Refill Less than 3 Seconds Skin: No rashes, Ulcer/ Wound - Small decubitus ulcers present on the right buttock stage II. Right heel has eschar, unstageable. Musculoskeletal: No Tenderness to Palpation of Joints or Extremities, Arthritic Changes Neurological: Cranial nerves II-XII grossly intact Psych/Mental Status: Normal Affect, Appropriate Vital Signs Temp Pulse Resp BP Pulse Ox 97.8 F 53 L 16 132/64 H 97 04/06/17 18:34 04/06/17 18:34 04/06/17 18:34 04/06/17 18:34 04/06/17 18:34 Oxygen Delivery Method Room Air Weight: 131 lb 13.383 oz Body Mass Index (BMI) 22.6 Assessment/Plan This patient was seen in conjunction with Stephan ARTHUR. I have independently interviewed and examined the patient and reviewed pertinent history, examination findings, laboratory and plan of management. I have reviewed the note and agree with the documented findings with the few additional points. In brief, patient is admitted for generalized weakness with recurrent fall. She had L5 compression fracture as mentioned above. Her daughter is concerned that her weakness might be due to cancer. Will consult Dr. Decker. CEA slightly elevated. Besides that she has sinus bradycardia. She is on amiodarone 200 mg daily at bedtime, will decrease 100 mg at bedtime and hold it if heart rate is less than 60/min. TSH, MRI brain, 2D echo are ordered. Her manager heart failure is Dr. andrade and if needed can consult him. I have discussed my assessment with Stephan ARTHUR and orders have been reviewed. Code Visit Inpatient E&M: 97866 Init Hosp L3
[2017-04-06 18:34] VITALS: BP 132/64; PULSE 53; RESP 16; TEMP 36.6; O2SAT 97
[2017-04-06] MEDS: Enoxaparin 40 MG/0.4 ML Syringe SC (19:58)
[2017-04-06] MEDS: Amiodarone 200 MG Tablet 100 MG PO (21:39)
[2017-04-06] MEDS: Pantoprazole Sodium 40 MG Tablet PO (21:41)
[2017-04-06] MEDS: amLODIPine 5 MG Tablet PO (21:42)
[2017-04-06] MEDS: Doxazosin 4 MG Tablet PO (21:42)
[2017-04-06] MEDS: Atorvastatin Calcium 20 MG Tablet PO (21:42)
[2017-04-06] MEDS: Clopidogrel Bisulfate 75 MG Tablet PO (21:42)
[2017-04-06] MEDS: Glucerna Shake 120 ML LIQUID PO (21:46)
[2017-04-06] MEDS: Temazepam 15 MG Capsule PO (21:46)
[2017-04-06 21:50] LABS: Bedside Glucose 115 mg/dL (70-110)
[2017-04-07] MEDS: Enoxaparin 40 MG/0.4 ML Syringe SC (05:50)
[2017-04-07 05:54] VITALS: BP 175/61; PULSE 53; RESP 18; TEMP 36.9; O2SAT 94
[2017-04-07 06:06] LABS: Bedside Glucose 81 mg/dL (70-110)
[2017-04-07 06:35] LABS: Absolute Lymphocyte Count 2.26 X10^3/ul (0.83-4.51); Absolute Neutrophil Count 4.4 X10^3/uL (2.0-7.7); Basophil# 0.04 X10^3/uL; Basophil% 0.5 % (0-1); Eosinophil# 0.74 X10^3/uL; Eosinophils% 9.3 % (0-5); Hematocrit 33.2 % (37-47); Hemoglobin 10.7 g/dl (12.0-15.0); Lymphocyte # 2.26 X10^3/ul (4.0); Lymphocyte % 28.3 % (19-41); Mean Corp Hgb Conc 32.2 g/gl (32-36); Mean Corpuscular Hgb 28.3 pg (27.0-32.0); Mean Corpuscular Volume 87.8 fL (81-99); Mean Platelet Vol. 11.7 fl (6.2-12.0); Monocyte# 0.55 X10^3/uL; Monocyte% 6.9 % (0-10); Neutrophil # 4.38 X10^3/uL (2.7-7.7); Neutrophil % 54.9 % (47-70); Platelet Count 220 K/mm3 (150-450); RBC Distribution Width CV 15.2 % (11.6-14.6); RBC Distribution Width SD 47.8 fl (35.1-43.9); Red Blood Count 3.78 M/mm3 (4.2-5.4)
[2017-04-07 06:43] LABS: POSITIVE COUNT NO; POSITIVE DIFFERENTIAL NO; POSITIVE MORPHOLOGY NO
[2017-04-07 06:47] LABS: Anion Gap 9 (5-15); BUN 16 mg/dL (7-18); BUN/Creat Ratio 23.6 RATIO (10-20); Calcium,Total 9.1 mg/dL (8.5-10.1); Chloride 107 mmol/L (98-107); Creatinine, Serum 0.68 mg/dL (0.55-1.02); EST Glomerular Filtration Rate 89 mL/min (>60); Est Glom Filt Rate - Afr Amer 107 mL/min (>60); Glucose 78 mg/dL (70-110); Potassium 3.6 mmol/L (3.5-5.1); Sodium Level 141 mmol/L (136-145)
--- NOTE | 2017-04-07 07:00 | MRI_ITS ---
STUDY: MRI BRAIN WITH AND WITHOUT CONTRAST REASON FOR EXAM: Female, 82 years old. Confusion, weakness and frequent falls. Patient has been treated for colon cancer and breast cancer. TECHNIQUE: Standardized multiplanar fat and water weighted pulse sequences were obtained. 6 ml of Gadavist contrast material was administered intravenously for the contrast portion of the examination. COMPARISON: CT of the head dated December 29, 2012. FINDINGS: There is mild cerebral atrophy with widening of the extra-axial spaces and moderate ventricular dilatation. There are a limited number of small white matter hyperintensities, distributed throughout the deep white matter tracts of the cerebral hemispheres, consistent with mild chronic white matter ischemic changes. There is confluent periventricular hyperintensity cloaking the lateral ventricles, consistent with periventricular leukoaraiosis. Transependymal edema is also possible. There is no evidence for recent intracranial ischemia or other cause of cytotoxic edema on diffusion weighted imaging (DWI). Normal T2* images of the brain without demonstrated susceptibility artifact. There is no demonstrated hemosiderin stain. There are prominent perivascular spaces (PVS) involving the basal ganglia. Normal thalami. There is no extra-axial fluid accumulation. Normal flow voids within the major intracranial circulation suggesting patency by spin echo criteria. Normal venous enhancement. There is no enhancing intra-axial or extra-axial abnormality. Normal sella turcica, pituitary gland, infundibular stalk, optic chiasm and hypothalamus. Normal tectal plate and pineal gland. Normal midbrain, dickson and medulla. Normal cerebellum. There are large basal cisterns. Normal bilateral temporal bones. Normal bilateral internal auditory canals. No demonstrated orbital abnormality, within the constraints of a routine brain study. There is mucoperiosteal inflammatory disease of the paranasal sinuses consistent with mild chronic sinusitis. There is a right maxillary mucous retention cyst. Normal calvarium and skull base. Normal visualized soft tissue structures. There are degenerative changes of the anterior atlantoaxial articulation. MRI/Brain W/WO Contrast IMPRESSION: 1. Involutional changes of the brain, as described above. 2. Moderate ventriculomegaly. The ventricular size is greater than expected for the general peripheral atrophy and suggests the possibility of normal pressure hydrocephalus. 3. No MR evidence for acute infarct. Electronically Signed: Clau Lawrence MD at 9:09 EST , Service support ,
[2017-04-07 08:38] VITALS: BP 180/69; PULSE 57; RESP 18; TEMP 36.3; O2SAT 96
[2017-04-07] MEDS: Losartan Potassium 100 MG Tablet PO (08:43)
[2017-04-07] MEDS: Aspirin 81 MG TAB.CHEW PO (08:43)
[2017-04-07] MEDS: Ferrous Sulfate 325 MG Tablet PO ×2 (08:43→16:11)
[2017-04-07] MEDS: Cyanocobalamin 500 MCG Tablet 1000 MCG PO (08:43)
[2017-04-07] MEDS: Furosemide 20 MG Tablet 10 MG PO (08:44)
[2017-04-07] MEDS: Glucerna Shake 120 ML LIQUID PO ×3 (08:49→17:02)
--- NOTE | 2017-04-07 10:21 | CT_ITS ---
STUDY: CT CHEST WITH CONTRAST REASON FOR EXAM: Female, 82 years old. Rising CEA in a patient with history of colon cancer. RADIATION DOSAGE (If Supplied By Facility): CTDIvol = ( 11.69 ) mGy, DLP = ( 993.59 ) mGycm TECHNIQUE: Transaxial imaging was performed following intravenous administration of 100 ml of Isovue 300 contrast material. Multiplanar coronal and sagittal images were reformatted. Individualized dose optimization techniques were used for this CT. COMPARISON: None. FINDINGS: There is hyperinflation of the lungs consistent with chronic obstructive lung disease (COPD). There is left basilar subsegmental atelectasis and dependent atelectasis. There is mild right basilar dependent atelectasis. There is no demonstrated pleural abnormality. Normal heart and pericardium. There are calcifications of the coronary arteries. There are multiple small lymph nodes within the mediastinum, which are normal in size and morphology most compatible with reactive lymph hyperplasia. Normal hilar regions. Normal enhanced pulmonary arteries. There is atherosclerotic calcification of the aortic arch with tortuosity and elongation of the aortic arch and descending thoracic aorta. Maximum transverse dimension of ascending thoracic aorta measuring approximately 3.1 cm. There are multi-level degenerative changes of the thoracic spine. The bones appear osteopenic. There is a moderately large hiatal hernia containing gastric fundus. There is prominence of the adrenal glands suggesting hyperplasia. CT/Chest WITH Contrast IMPRESSION: 1. Left basilar dependent atelectasis and subsegmental atelectasis. 2. Hiatal hernia. Electronically Signed: Clau Lawrence MD at 14:45 EST , Service support ,
--- NOTE | 2017-04-07 10:21 | CT_ITS ---
STUDY: CT ABDOMEN AND PELVIS WITH CONTRAST REASON FOR EXAM: Female, 82 years old. Rising CEA in a patient treated for colon cancer. RADIATION DOSAGE (If Supplied By Facility): CTDIvol = ( 11.69 ) mGy, DLP = ( 993.59 ) mGycm TECHNIQUE: Transaxial images were obtained from the dome of the diaphragm to the symphysis pubis with oral contrast. 100 ml of Isovue 300 contrast was administered. Sagittal and coronal images were reconstructed. Individualized dose optimization techniques were used for this CT. COMPARISON: CT of the abdomen and pelvis dated October 30, 2016. FINDINGS: There is left basilar subsegmental atelectasis. The visualized portions of the heart are within normal limits. There are nonspecific calcifications within the liver adjacent to the gallbladder. This is unchanged since the previous CT. The liver otherwise has a normal appearance. There is increased attenuation within the dependent gallbladder possibly representing biliary sludge. Normal spleen. There is diffuse atrophy of the pancreas. There is a small, circumscribed, smooth, low attenuation left adrenal mass, consistent with an adrenal adenoma. Left adrenal nodule measures approximately 1.7 cm in greatest dimension. Normal right adrenal gland. There are multifocal areas of parenchymal loss from right kidney possibly related to previous ischemia or infection. Normal left kidney. There is a small hiatal hernia. There is no evidence for dilated bowel, ascites or pneumoperitoneum. Small bowel has a grossly normal appearance. Appears to been partial colon resection of the descending colon. Surgical sutures are visible in the colon and the adjacent small bowel. Stool is visible within the rest the colon with scattered diverticula. There is non-visualization of the appendix. There is diffuse atherosclerotic calcification of the abdominal aorta, without a demonstrated aneurysm. Normal inferior vena cava. Normal retroperitoneum. Urinary bladder is very distended. There is absence of the uterus consistent with a prior hysterectomy. Normal abdominal wall. The bones are osteopenic. There is mild compression of L3 vertebral body this is new since the previous CT. There is multilevel degenerative disc disease and degenerative arthropathy of the imaged thoracic and lumbar spine. CT/Abdomen/Pelvis WITH Contrast IMPRESSION: 1. Left basilar subsegmental atelectasis. 2. Status post partial right-sided colon resection. 3. Questionable biliary sludge and/or cholelithiasis. 4. No CT evidence of acute intra-abdominal disease. 5. Extensive atherosclerotic calcification of the abdominal aorta. Electronically Signed: Clau Lawrence MD at 15:01 EST , Service support ,
--- NOTE | 2017-04-07 10:51 | ONC.CON.INP2 ---
(1) Colon cancer Status: Chronic (2) Falls frequently Status: Acute (3) Anemia Status: Chronic (4) Memory change Status: Acute (5) Confusion Status: Acute Consult Referring Physician: MD Noe Consult Results: Colon cancer Subjective Date of Service:: 04/07/17 Chief Complaint: Fall History of Present Illness: Patient is an 82-year-old female with a past medical history notable for diabetes, hypertension, coronary artery disease, cerebrovascular disease, dyslipidemia and being a regular smoker till November 2016 (patient daughter reported end of visit March 2017 that patient continues to smoke occasionally). She has a remote history of left breast cancer status post mastectomy and a recent history of colon cancer status post laparoscopic right hemicolectomy in November 2016. The patient recently experienced a rather rapid decline in mental and physical health with increasing confusion, failing memory, and frequent falls. I saw her within the past week and noted a rising CEA and imaging studies were being authorized to rule out recurrent metastatic colon cancer. Power of Hydrometer Finisher: Yes Living Will: Yes Health History: Cancer History: [] Past Medical History: [] Past Surgical History: [] Family History: [] Social History: [] Allergies/Adverse Reactions: Allergy/AdvReac Type Severity Reaction Status Date / Time sulfamethoxazole Allergy Other Verified 03/27/17 11:30 [From Bactrim] trimethoprim [From Bactrim] Allergy Other Verified 03/27/17 11:30 ibuprofen AdvReac Nausea Verified 03/27/17 11:30 IVP dye Allergy Unknown Uncoded 03/27/17 11:30 Home Medications Medication Instructions Recorded Lovastatin [Mevacor] 80 mg PO QHS 04/13/13 Metformin HCl [Glucophage] 500 mg PO BIDCM 04/13/13 Amlodipine [Norvasc] 5 mg PO QHS 05/11/14 Losartan Potassium [Cozaar] 100 mg PO DAILY 05/11/14 Temazepam [Restoril] 15 mg PO QHS 05/11/14 Cholecalciferol (Vitamin D3) 2,000 unit PO DAILY 10/31/16 [Vitamin D3] Biotin 5,000 mcg PO DAILY 11/25/16 Metoprolol Succinate [Toprol Xl] 100 mg PO DINNER 12/05/16 Omeprazole 40 mg PO QHS 12/05/16 Terazosin HCl 5 mg PO QHS 12/05/16 Aspirin [Aspirin, Baby] 81 mg PO DAILY@00 01/27/17 Clopidogrel Bisulfate [Plavix] 75 mg PO QHS 01/27/17 Cyanocobalamin (Vitamin B-12) 1,000 mcg PO DAILY 01/27/17 [Vitamin B-12] Ferrous Sulfate 325 mg PO BIDCM 01/27/17 Amiodarone HCl [Cordarone] 200 mg PO QHS 04/06/17 Furosemide [Lasix] 10 mg PO DAILY 04/06/17 Potassium Chloride [K-Dur] 10 meq PO 4X/DAY 04/06/17 Review of Systems Constitutional:: Reports: Weakness, Fatigue, Weight loss. Denies: Fever, Sweats, Appetite change, Chills Cardiovascular:: Denies: Chest pain, Palpitations, Dyspnea on exertion, Orthopnea, PND, Shortness of breath Respiratory: Denies: Cough, Hemoptysis, Shortness of Breath, Wheezing Gastrointestinal:: Denies: Abdominal pain, Nausea, Vomiting, Diarrhea, Constipation, Hematochezia Genitourinary: Denies: Dysuria, Hematuria, 15, Flank pain Musculoskeletal:: Denies: Back pain, Myalgia, Arthralgia Skin: Denies: Rash, Skin Changes, Wounds Neurological:: Reports: Memory loss, Frequent falls, - - No lateralization symptoms. Denies: Headache, Dizziness, Visual changes, Tinnitus, Hearing loss Psychiatric: Denies: Anxiety, Depression, Homicidal Ideations, Suicidal Ideations Review of Systems Comments: Patient's recent memory is impaired, review of systems from patient within these limitations and also by review of records including my recent outpatient visit where her daughter who was available Vital Signs Height 5 ft 4 in Weight: 59.8 kg Weight in Pounds 131.8 lbs Pulse Ox 96 Temperature 97.3 F Pulse Rate 57 Respiratory Rate 18 Blood Pressure 180/69 Blood Pressure Position Semi-Fowlers - Physical Exam General: No apparent distress, - - Confused and person and time was poor recent memory recall HEENT: Atraumatic, PERRLA, EOMI, Normocephalic Oropharynx:: Dry mucosa Neck:: Supple, Trachea midline. Negative for: JVD, bilateral Cardiac:: Regular rate, Regular rhythm, Normal S1, Normal S2. Negative for: Murmur Lungs: Clear to auscultation, Excusion symmetrical. Negative for: Rhonchi, Wheezes Abdomen:: Soft, Non-tender, Non-distended. Negative for: Hepatosplenomegaly Extremities:: Negative for: Cyanosis, Edema Neurological: Neuro grossly intact - No signs of lateralization, - - Poor recent memory recall and confused in person and place Skin:: Negative for: Lesions, Rash, Petechiae, Ecchymosis Psychiatric:: Appropriate affect, Euthymic Lymphatics:: Negative for: Cervical lymphadenopathy, Supraclavicular lymphadenopathy, Axillary lymphadenopathy Laboratory Data: Laboratory Tests 04/07/17 04/07/17 04/07/17 Range/Units 05:49 05:44 05:44 WBC 8.0 (4.4-11.0) K/mm3 RBC 3.78 L (4.2-5.4) M/mm3 Hgb 10.7 L (12.0-15.0) g/dl Hct 33.2 L (37-47) % MCV 87.8 (81-99) fL MCH 28.3 (27.0-32.0) pg MCHC 32.2 (32-36) g/gl RDW 15.2 H (11.6-14.6) % RDW Differential 47.8 H (35.1-43.9) fl Plt Count 220 (150-450) K/mm3 MPV 11.7 (6.2-12.0) fl Immature Gran % (Auto) 0.100 (0.0-0.9) % Neut % (Auto) 54.9 (47-70) % Lymph % (Auto) 28.3 (19-41) % [place] % (Auto) 6.9 (0-10) % Eos % (Auto) 9.3 H (0-5) % Baso % (Auto) 0.5 (0-1) % Absolute Neuts (auto) 4.4 (2.0-7.7) X10^3/uL Absolute Lymphs (auto) 2.26 (0.83-4.51) X10^3/ul Total Counted Not Reportable Sodium 141 (136-145) mmol/L Potassium 3.6 (3.5-5.1) mmol/L Chloride 107 (98-107) mmol/L Carbon Dioxide 25.0 (21.0-32.0) mmol/L Anion Gap 9 (5-15) BUN 16 (7-18) mg/dL Creatinine 0.68 (0.55-1.02) mg/dL Estim Creat Clear Calc 38.10 ml/min Est GFR (MDRD) Af Amer 107 (>60) mL/min Est GFR (MDRD) Non-Af 89 (>60) mL/min BUN/Creatinine Ratio 23.6 H (10-20) RATIO Glucose 78 (70-110) mg/dL Calcium 9.1 (8.5-10.1) mg/dL POC Glucose 81 (70-110) mg/dL 04/06/17 Range/Units 21:38 WBC (4.4-11.0) K/mm3 RBC (4.2-5.4) M/mm3 Hgb (12.0-15.0) g/dl Hct (37-47) % MCV (81-99) fL MCH (27.0-32.0) pg MCHC (32-36) g/gl RDW (11.6-14.6) % RDW Differential (35.1-43.9) fl Plt Count (150-450) K/mm3 MPV (6.2-12.0) fl Immature Gran % (Auto) (0.0-0.9) % Neut % (Auto) (47-70) % Lymph % (Auto) (19-41) % [place] % (Auto) (0-10) % Eos % (Auto) (0-5) % Baso % (Auto) (0-1) % Absolute Neuts (auto) (2.0-7.7) X10^3/uL Absolute Lymphs (auto) (0.83-4.51) X10^3/ul Total Counted Sodium (136-145) mmol/L Potassium (3.5-5.1) mmol/L Chloride (98-107) mmol/L Carbon Dioxide (21.0-32.0) mmol/L Anion Gap (5-15) BUN (7-18) mg/dL Creatinine (0.55-1.02) mg/dL Estim Creat Clear Calc ml/min Est GFR (MDRD) Af Amer (>60) mL/min Est GFR (MDRD) Non-Af (>60) mL/min BUN/Creatinine Ratio (10-20) RATIO Glucose (70-110) mg/dL Calcium (8.5-10.1) mg/dL POC Glucose 115 H (70-110) mg/dL Diagnostic Data: Diagnostic Data Brain CT 04/06/17 14:00 IMPRESSION: Chronic involutional changes of the brain. Electronically Signed: Earl Zheng MD at 15:03 EST Tel [phone], Service support , Lumbar Spine X-Ray 04/06/17 14:28 IMPRESSION: Degenerative changes of the spine, as detailed above. 50% loss of height of the L5 vertebra which is new as compared to prior study. Electronically Signed: Earl Zheng MD at 15:02 EST Tel [phone], Service support , Brain MRI 04/07/17 07:00 IMPRESSION: 1. Involutional changes of the brain, as described above. 2. Moderate ventriculomegaly. The ventricular size is greater than expected for the general peripheral atrophy and suggests the possibility of normal pressure hydrocephalus. 3. No MR evidence for acute infarct. Electronically Signed: Clau Lawrence MD at 9:09 EST , Service support , Assessment and Plan 82-year-old female admitted after a yet another fall who from the hematology and oncology consult perspective: #1 colon cancer stage IIA (T3, N0, M0) status post laparoscopic right hemicolectomy in November 2016. Patient's preop CEA was 3.4, March 2017 a mild rise to 7. is noted. Although the patient claims she stopped smoking in 2017 her daughter and a recent visit in March 2017 reported that mother still smokes occasionally. The rise in CEA though concerning for recurrent colon cancer is not specific and can be simply due to that the patient is still smoking. Nonetheless imaging studies with CAT scan chest abdomen and pelvis are indicated to rule out recurrent colon cancer. These tests were ordered as soon as possible during this hospital stay. #2. She has a mild anemia and evaluation is consistent with anemia of chronic diseases polypharmacy. #3. 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 If metastatic colorectal cancer is ruled out and neurosurgical evaluation for shunt placement would be indicated. Medications: Prescriptions This Visit Medication Instructions Recorded Amiodarone HCl [Cordarone] 200 mg PO QHS 04/06/17 Furosemide [Lasix] 10 mg PO DAILY 04/06/17 Potassium Chloride [K-Dur] 10 meq PO 4X/DAY 04/06/17 Medications Added to Medication List This Visit Category Date Time Status Aspirin [Aspirin, Baby] Med 04/07/17 08:00 Active 81 mg PO DAILY@0800 Cholecalciferol (VIT D3) [Vitamin D] Med 04/07/17 10:00 Active 2,000 unit PO DAILY Cyanocobalamin [Vitamin B12] Med 04/07/17 10:00 Active 1,000 mcg PO DAILY Ferrous Sulfate Med 04/07/17 08:00 Active 325 mg PO BIDCM Furosemide [Lasix] Med 04/07/17 10:00 Active 10 mg PO DAILY Losartan Potassium [Cozaar] Med 04/07/17 10:00 Active 100 mg PO DAILY Metoprolol(XL)Succ [Toprol Xl (Beta Amy)] Med 04/07/17 17:00 Active 100 mg PO DINNER Primary Care Provider: Christian Galvan DO Referring Provider:
--- NOTE | 2017-04-07 11:02 | CON.PCM_ITS ---
(1) Colon cancer Status: Chronic (2) Falls frequently Status: Acute (3) Anemia Status: Chronic (4) Memory change Status: Acute (5) Confusion Status: Acute Consult Referring Physician: MD Noe Consult Results: Colon cancer Subjective Date of Service:: 04/07/17 Chief Complaint: Fall History of Present Illness: Patient is an 82-year-old female with a past medical history notable for diabetes, hypertension, coronary artery disease, cerebrovascular disease, dyslipidemia and being a regular smoker till November 2016 (patient daughter reported end of visit March 2017 that patient continues to smoke occasionally) . She has a remote history of left breast cancer status post mastectomy and a recent history of colon cancer status post laparoscopic right hemicolectomy in November 2016. The patient recently experienced a rather rapid decline in mental and physical health with increasing confusion, failing memory, and frequent falls. I saw her within the past week and noted a rising CEA and imaging studies were being authorized to rule out recurrent metastatic colon cancer. Power of Tandem Mill Operator: Yes Living Will: Yes Health History: Cancer History: [] Past Medical History: [] Past Surgical History: [] Family History: [] Social History: [] Allergies/Adverse Reactions: Allergy/AdvReac Type Severity Reaction Status Date / Time sulfamethoxazole Allergy Other Verified 03/27/17 11:30 [From Bactrim] trimethoprim [From Bactrim] Allergy Other Verified 03/27/17 11:30 ibuprofen AdvReac Nausea Verified 03/27/17 11:30 IVP dye Allergy Unknown Uncoded 03/27/17 11:30 Home Medications Medication Instructions Recorded Lovastatin [Mevacor] 80 mg PO QHS 04/13/13 Metformin HCl [Glucophage] 500 mg PO BIDCM 04/13/13 Amlodipine [Norvasc] 5 mg PO QHS 05/11/14 Losartan Potassium [Cozaar] 100 mg PO DAILY 05/11/14 Temazepam [Restoril] 15 mg PO QHS 05/11/14 Cholecalciferol (Vitamin D3) 2,000 unit PO DAILY 10/31/16 [Vitamin D3] Biotin 5,000 mcg PO DAILY 11/25/16 Metoprolol Succinate [Toprol Xl] 100 mg PO DINNER 12/05/16 Omeprazole 40 mg PO QHS 12/05/16 Terazosin HCl 5 mg PO QHS 12/05/16 Aspirin [Aspirin, Baby] 81 mg PO DAILY@00 01/27/17 Clopidogrel Bisulfate [Plavix] 75 mg PO QHS 01/27/17 Cyanocobalamin (Vitamin B-12) 1,000 mcg PO DAILY 01/27/17 [Vitamin B-12] Ferrous Sulfate 325 mg PO BIDCM 01/27/17 Amiodarone HCl [Cordarone] 200 mg PO QHS 04/06/17 Furosemide [Lasix] 10 mg PO DAILY 04/06/17 Potassium Chloride [K-Dur] 10 meq PO 4X/DAY 04/06/17 Review of Systems Constitutional:: Reports: Weakness, Fatigue, Weight loss. Denies: Fever, Sweats , Appetite change, Chills Cardiovascular:: Denies: Chest pain, Palpitations, Dyspnea on exertion, Orthopnea, PND, Shortness of breath Respiratory: Denies: Cough, Hemoptysis, Shortness of Breath, Wheezing Gastrointestinal:: Denies: Abdominal pain, Nausea, Vomiting, Diarrhea, Constipation, Hematochezia Genitourinary: Denies: Dysuria, Hematuria, 15, Flank pain Musculoskeletal:: Denies: Back pain, Myalgia, Arthralgia Skin: Denies: Rash, Skin Changes, Wounds Neurological:: Reports: Memory loss, Frequent falls, - - No lateralization symptoms. Denies: Headache, Dizziness, Visual changes, Tinnitus, Hearing loss Psychiatric: Denies: Anxiety, Depression, Homicidal Ideations, Suicidal Ideations Review of Systems Comments: Patient's recent memory is impaired, review of systems from patient within these limitations and also by review of records including my recent outpatient visit where her daughter who was available Vital Signs Height 5 ft 4 in Weight: 59.8 kg Weight in Pounds 131.8 lbs Pulse Ox 96 Temperature 97.3 F Pulse Rate 57 Respiratory Rate 18 Blood Pressure 180/69 Blood Pressure Position Semi-Fowlers - Physical Exam General: No apparent distress, - - Confused and person and time was poor recent memory recall HEENT: Atraumatic, PERRLA, EOMI, Normocephalic Oropharynx:: Dry mucosa Neck:: Supple, Trachea midline. Negative for: JVD, bilateral Cardiac:: Regular rate, Regular rhythm, Normal S1, Normal S2. Negative for: Murmur Lungs: Clear to auscultation, Excusion symmetrical. Negative for: Rhonchi, Wheezes Abdomen:: Soft, Non-tender, Non-distended. Negative for: Hepatosplenomegaly Extremities:: Negative for: Cyanosis, Edema Neurological: Neuro grossly intact - No signs of lateralization, - - Poor recent memory recall and confused in person and place Skin:: Negative for: Lesions, Rash, Petechiae, Ecchymosis Psychiatric:: Appropriate affect, Euthymic Lymphatics:: Negative for: Cervical lymphadenopathy, Supraclavicular lymphadenopathy, Axillary lymphadenopathy Laboratory Data: Laboratory Tests 3 04/07/17 04/07/17 04/07/17 Range/Units 05:49 05:44 05:44 WBC 8.0 (4.4-11.0) K/mm3 RBC 3.78 L (4.2-5.4) M/mm3 Hgb 10.7 L (12.0-15.0) g/dl Hct 33.2 L (37-47) % MCV 87.8 (81-99) fL MCH 28.3 (27.0-32.0) pg MCHC 32.2 (32-36) g/gl RDW 15.2 H (11.6-14.6) % RDW Differential 47.8 H (35.1-43.9) fl Plt Count 220 (150-450) K/mm3 MPV 11.7 (6.2-12.0) fl Immature Gran % (Auto) 0.100 (0.0-0.9) % Neut % (Auto) 54.9 (47-70) % Lymph % (Auto) 28.3 (19-41) % [place] % (Auto) 6.9 (0-10) % Eos % (Auto) 9.3 H (0-5) % Baso % (Auto) 0.5 (0-1) % Absolute Neuts (auto) 4.4 (2.0-7.7) X10^3/uL Absolute Lymphs (auto) 2.26 (0.83-4.51) X10^3/ul Total Counted Not Reportable Sodium 141 (136-145) mmol/L Potassium 3.6 (3.5-5.1) mmol/L Chloride 107 (98-107) mmol/L Carbon Dioxide 25.0 (21.0-32.0) mmol/L Anion Gap 9 (5-15) BUN 16 (7-18) mg/dL Creatinine 0.68 (0.55-1.02) mg/dL Estim Creat Clear Calc 38.10 ml/min Est GFR (MDRD) Af Amer 107 (>60) mL/min Est GFR (MDRD) Non-Af 89 (>60) mL/min BUN/Creatinine Ratio 23.6 H (10-20) RATIO Glucose 78 (70-110) mg/dL Calcium 9.1 (8.5-10.1) mg/dL POC Glucose 81 (70-110) mg/dL 3 04/06/17 Range/Units 21:38 WBC (4.4-11.0) K/mm3 RBC (4.2-5.4) M/mm3 Hgb (12.0-15.0) g/dl Hct (37-47) % MCV (81-99) fL MCH (27.0-32.0) pg MCHC (32-36) g/gl RDW (11.6-14.6) % RDW Differential (35.1-43.9) fl Plt Count (150-450) K/mm3 MPV (6.2-12.0) fl Immature Gran % (Auto) (0.0-0.9) % Neut % (Auto) (47-70) % Lymph % (Auto) (19-41) % [place] % (Auto) (0-10) % Eos % (Auto) (0-5) % Baso % (Auto) (0-1) % Absolute Neuts (auto) (2.0-7.7) X10^3/uL Absolute Lymphs (auto) (0.83-4.51) X10^3/ul Total Counted Sodium (136-145) mmol/L Potassium (3.5-5.1) mmol/L Chloride (98-107) mmol/L Carbon Dioxide (21.0-32.0) mmol/L Anion Gap (5-15) BUN (7-18) mg/dL Creatinine (0.55-1.02) mg/dL Estim Creat Clear Calc ml/min Est GFR (MDRD) Af Amer (>60) mL/min Est GFR (MDRD) Non-Af (>60) mL/min BUN/Creatinine Ratio (10-20) RATIO Glucose (70-110) mg/dL Calcium (8.5-10.1) mg/dL POC Glucose 115 H (70-110) mg/dL Diagnostic Data: Diagnostic Data Brain CT 04/06/17 14:00 IMPRESSION: Chronic involutional changes of the brain. Electronically Signed: Earl Zheng MD at 15:03 EST Tel [phone], Service support , Lumbar Spine X-Ray 04/06/17 14:28 IMPRESSION: Degenerative changes of the spine, as detailed above. 50% loss of height of the L5 vertebra which is new as compared to prior study. Electronically Signed: Earl Zheng MD at 15:02 EST Tel [phone], Service support , Brain MRI 04/07/17 07:00 IMPRESSION: 1. Involutional changes of the brain, as described above. 2. Moderate ventriculomegaly. The ventricular size is greater than expected for the general peripheral atrophy and suggests the possibility of normal pressure hydrocephalus. 3. No MR evidence for acute infarct. Electronically Signed: Clau Lawrence MD at 9:09 EST , Service support , Assessment and Plan 82-year-old female admitted after a yet another fall who from the hematology and oncology consult perspective: #1 colon cancer stage IIA (T3, N0, M0) status post laparoscopic right hemicolectomy in November 2016. Patient's preop CEA was 3.4, March 2017 a mild rise to 7. is noted. Although the patient claims she stopped smoking in 2016 her daughter and a recent visit in March 2017 reported that mother still smokes occasionally. The rise in CEA though concerning for recurrent colon cancer is not specific and can be simply due to that the patient is still smoking. Nonetheless imaging studies with CAT scan chest abdomen and pelvis are indicated to rule out recurrent colon cancer. These tests were ordered as soon as possible during this hospital stay. #2. She has a mild anemia and evaluation is consistent with anemia of chronic diseases polypharmacy. #3. 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 If metastatic colorectal cancer is ruled out and neurosurgical evaluation for shunt placement would be indicated. Medications: Prescriptions This Visit Medication Instructions Recorded Amiodarone HCl [Cordarone] 200 mg PO QHS 04/06/17 Furosemide [Lasix] 10 mg PO DAILY 04/06/17 Potassium Chloride [K-Dur] 10 meq PO 4X/DAY 04/06/17 Medications Added to Medication List This Visit Category Date Time Status Aspirin [Aspirin, Baby] Med 04/07/17 08:00 Active 81 mg PO DAILY@0800 Cholecalciferol (VIT D3) [Vitamin D] Med 04/07/17 10:00 Active 2,000 unit PO DAILY Cyanocobalamin [Vitamin B12] Med 04/07/17 10:00 Active 1,000 mcg PO DAILY Ferrous Sulfate Med 04/07/17 08:00 Active 325 mg PO BIDCM Furosemide [Lasix] Med 04/07/17 10:00 Active 10 mg PO DAILY Losartan Potassium [Cozaar] Med 04/07/17 10:00 Active 100 mg PO DAILY Metoprolol(XL)Succ [Toprol Xl (Beta Amy)] Med 04/07/17 17:00 Active 100 mg PO DINNER Primary Care Provider: Christian Galvan DO Referring Provider:
--- NOTE | 2017-04-07 11:28 | CASEMGMT ---
Insurance review if [facility] Tert[facility] transfer is recommended. Per [facility] website using JRI designation on insurance card, [facility] facilities include but are not limited to: [facility], [facility], [facility], [facility], [facility], [facility], [facility] ([place]). for further questions, please contact Arcenio BURRELL RN ACM
[2017-04-07 12:41] LABS: Bedside Glucose 151 mg/dL (70-110)
[2017-04-07 14:21] VITALS: BP 173/47; PULSE 58; RESP 18; TEMP 36.7; O2SAT 97
--- NOTE | 2017-04-07 15:27 | CASEMGMT ---
Social Work Note Consult received for SNF placement. Reviewed chart. Patient is known to this screen writer from previous admission. Went to patient's room to further discuss discharge planning, but nursing providing care in room. Called patient's daughter Keyonna, with whom patient lives. Keyonna confirms thought that patient requires more care than Keyonna can manage at this time. Keyonna voices hope that SNF would be short term for rehabilitation with goal of returning home. take off worker inquired whether patient is in agreement with plan for SNF, to which Keyonna reports patient is on board with this plan. Keyonna reports [facility] choice is [facility], as patient's other daughter Britt is at this facility. This screen writer pulled up SNF list from patient's insurance website. [facility] is listed as in-network. Educated Keyonna that referral can be made, then wait for SNF to let hospital know whether SNF feels able to meet patient's needs, then at that point a precert will have to be obtained by the SNF. Called [facility]. Spoke to Kayla. Kayla reports that even though website says [facility] is in-network, in reality Trish discontinued Medicare Part A contract with [facility]. Therefore, this SNF is not actually in network. Called Keyonna to review. Reviewed list of facilities on website and explained that information is only as good as when social worker delinquency prevention makes referral to the SNF. Keyonna wrote down the names of [facility] SNFs. Keyonna will talk with patient tonight and then call social worker delinquency prevention back with top 3 choices. PLAN: Anticipate call/message from daughter later this evening regarding SNF choices. Will initiate referrals once it is known which facilities are acceptable to patient. -GAVINO Adair, ADULT PSYCHIATRIST
[2017-04-07 16:14] VITALS: PULSE 56
[2017-04-07 16:21] LABS: Bedside Glucose 134 mg/dL (70-110)
--- NOTE | 2017-04-07 17:21 | MRI_ITS ---
STUDY: MRI LUMBAR SPINE WITHOUT CONTRAST REASON FOR EXAM: Female, 82 years old. Cord compression or leg weakness. Patient has history of breast and colon cancer. TECHNIQUE: Standardized fat and water weighted pulse sequences were obtained in the sagittal and axial planes. COMPARISON: CT of the abdomen and pelvis dated April 07, 2017. FINDINGS: T12-L1: There is a disc bulge and osteophyte complex. Neural foramina are patent. There is no significant central acquired canal stenosis. Normal lumbar lordosis. There is no substantial scoliosis. Normal conus medullaris that terminates at the T12-L1 level. L1-2: There is an annular disc bulge and osteophyte complex. There is mild degenerative arthropathy of facet joints. Neural foramina are mildly narrowed without evidence for nerve impingement. There is no significant central acquired canal stenosis. L2-3: There is a moderate compression of the superior endplate of L3. This has appearance of an acute compression fracture. There is an annular disc bulge with osteophyte complex. There is mild degenerative arthropathy of facet joints. The neural foramina are narrowed without evidence for nerve impingement. L3-4: There is an annular disc bulge and osteophyte complex. There is moderate degenerative arthropathy of facet joints. There is moderate acquired canal stenosis. Neural foramina are narrowed without evidence for nerve impingement. L4-5: There is annular disc bulge with broad central disc protrusion. There is moderate degenerative arthropathy of facet joints. There is moderate acquired canal stenosis. Neural foramina are moderately narrowed, greater on the left than the right with potential impingement of the left L4 nerve root at the neural foramen. L5-S1: This has appearance of a transitional segment. There is moderate degenerative arthropathy of facet joints. The neural foramina are patent. There is no significant central acquired canal stenosis. There is abnormal signal at the endplates of T11 and T12. This probably represents sequela of chronic Modic changes. Normal visualized sacral ala. Normal visualized paraspinous soft tissue structures. MRI/Spine Lumbar (Routine) IMPRESSION: 1. Probable acute moderate compression fracture of the superior endplate of L3. 2. Multilevel acquired canal stenosis. 3. Potential nerve impingement at L4-5, as described. Electronically Signed: Clau Lawrence MD at 9:11 EST , Service support ,
--- NOTE | 2017-04-07 17:29 | PCM.PROGNOTE ---
Patient Problems: Active and Suspected Problems (Last Reviewed 04/01/17 @ 13:59 by Diana Santos) Falls frequently (Acute) Confusion (Acute) Compression fracture (Acute) Subjective: Pt resting comfortably in bed. Still somewhat confused but is able to recall the events surrounding her admission. She has some chronic urinary incontinence but has not had any new or sudden changes in this. She is very weak especially the right leg. She continues to have lower back pain. She is able to pivot with assist to the [facility]. She has no headache dizziness or LH today. Oriented x 2 (states it is 1979), but does know it is winter. - Physical Exam General: Alert, Cooperative, - - oriented x 2 HEENT: Atraumatic, PERRLA, EOMI, Normocephalic Neck: Supple, No JVD, Negative Carotid Bruits Lungs: Clear to auscultation, Normal air movement Cardiovascular: Regular rate, No murmurs Abdomen: Bowel Sounds Present, Soft, Non Tender Extremities: No edema, Capillary Refill Less than 3 Seconds Skin: No rashes, No breakdown Musculoskeletal: No Tenderness to Palpation of Joints or Extremities, - - strength 4/5 in BLE Neurological: Cranial nerves II-XII grossly intact, - - poor memory, remembers 2/3 items. 1/3 after longer delay. States year 1979. Has sensation intact BLE, however did at one point confused the RvsL. Failed to spell world backwards. Cannot count backwards from 100 at all. Psych/Mental Status: Normal Affect, Appropriate, Alert and oriented to time, place, person, mood and affect Vital Signs Temp Pulse Resp BP Pulse Ox 98.1 F 56 L 18 173/47 H 97 04/07/17 14:21 04/07/17 16:14 04/07/17 14:21 04/07/17 14:21 04/07/17 14:21 Oxygen Delivery Method Room Air Weight: 59.8 kg Body Mass Index (BMI) 22.6 Intake and Output for Last 24 Hours 04/05/17 04/06/17 04/07/17 23:59 23:59 23:59 Intake Total 800 / 800 Output Total 1000 / 1000 Balance -200 / -200 Laboratory Tests Past 24 Hrs 04/07/17 04/07/17 05:44 05:44 WBC 8.0 RBC 3.78 L Hgb 10.7 L Hct 33.2 L MCV 87.8 MCH 28.3 MCHC 32.2 RDW 15.2 H RDW Differential 47.8 H Plt Count 220 MPV 11.7 Immature Gran % (Auto) 0.100 Neut % (Auto) 54.9 Lymph % (Auto) 28.3 [place]vier % (Auto) 6.9 Eos % (Auto) 9.3 H Baso % (Auto) 0.5 Absolute Neuts (auto) 4.4 Absolute Lymphs (auto) 2.26 Total Counted Not Reportable Sodium 141 Potassium 3.6 Chloride 107 Carbon Dioxide 25.0 Anion Gap 9 BUN 16 Creatinine 0.68 Estim Creat Clear Calc 38.10 Est GFR (MDRD) Af Amer 107 Est GFR (MDRD) Non-Af 89 BUN/Creatinine Ratio 23.6 H Glucose 78 Calcium 9.1 POC Glucose 04/07/17 04/07/17 04/07/17 16:09 11:43 05:49 POC Glucose 134 H 151 H 81 04/06/17 21:38 POC Glucose 115 H Assessment/Plan Active and Suspected Problems (Last Reviewed 04/01/17 @ 13:59 by Diana Santos) Falls frequently (Acute) Confusion (Acute) Compression fracture (Acute) 1. Generalized weakness - drastically worsened since March 26 with multiple falls in the 3 days leading up to admission, L5 compression fracture seen on XR in the ER. Possibly some right sided weakness > Left side and pt more confused lately. Will do MRI lumbar spine to look for cord compression. Pt was independent and ambulatory until the . No stroke on MRI brain. CT brain with chronic changes in the ER. Trop neg. UA negative. TSH elevated, T4 pending. Echo pending. 2. Concern for NPH - MRI c/w NPH. Reportedly more confused than normal per daughter, and the weakness and falling is new, supposedly pt had no ambulation problems until the . pt is chronically incontinent, but there is no new or sudden difference in the incontinence. Will add Neurology consult today. Pt and daughter are agreeable to transfer to [facility] for NPH. I have placed a call with their transfer service and are awaiting to hear back from them. 3. L5 compression fracture - see xr, 2/2 fall at home. supportive care. PTOT. 4. PAF - rate controlled. On amio, toprol. Rate is in the 50s. Last echo 2014 EF 70% PASP 34 mmHg, 1+ MVI. Not on OAC likely as she had GI bleeding in the past with Colon CA and hx epistaxis. 5. CAD - aspirin, plavix, ARB, lovastatin, norvasc, terazosin 6. DMt2 - SSI, metformin held. 7. Colorectal CA - treated with resection in November, recent CEA was elevated. No abdominal pain lately, no bloody stools. No mets on MRI. Dr. Riley evaluated the pt and is not concerned for metastatic dz. 8. Chronic anemia - continue iron. normocytic. 9. Elevated TSH - check fT4 10. Poorly controlled HTN - with stroke ruled out will add norvasc in the morning. Tonight will provide PRN hydralazine. DVT ppx: lovenox DC planning: may be transferred to [facility] for NPH. Waiting for call back. This patient was seen by Stephan Laguna PA-C under the supervision of Doctor Holguin.
--- NOTE | 2017-04-07 17:48 | PN_ITS ---
Patient Problems: Active and Suspected Problems (Last Reviewed 04/01/17 @ 13:59 by Diana Santos) Falls frequently (Acute) Confusion (Acute) Compression fracture (Acute) Subjective: Pt resting comfortably in bed. Still somewhat confused but is able to recall the events surrounding her admission. She has some chronic urinary incontinence but has not had any new or sudden changes in this. She is very weak especially the right leg. She continues to have lower back pain. She is able to pivot with assist to the [facility]. She has no headache dizziness or LH today. Oriented x 2 ( states it is 1979), but does know it is winter. - Physical Exam General: Alert, Cooperative, - - oriented x 2 HEENT: Atraumatic, PERRLA, EOMI, Normocephalic Neck: Supple, No JVD, Negative Carotid Bruits Lungs: Clear to auscultation, Normal air movement Cardiovascular: Regular rate, No murmurs Abdomen: Bowel Sounds Present, Soft, Non Tender Extremities: No edema, Capillary Refill Less than 3 Seconds Skin: No rashes, No breakdown Musculoskeletal: No Tenderness to Palpation of Joints or Extremities, - - strength 4/5 in BLE Neurological: Cranial nerves II-XII grossly intact, - - poor memory, remembers 2 /3 items. 1/3 after longer delay. States year 1979. Has sensation intact BLE, however did at one point confused the RvsL. Failed to spell world backwards. Cannot count backwards from 100 at all. Psych/Mental Status: Normal Affect, Appropriate, Alert and oriented to time, place, person, mood and affect Vital Signs Temp Pulse Resp BP Pulse Ox 98.1 F 56 L 18 173/47 H 97 04/07/17 14:21 04/07/17 16:14 04/07/17 14:21 04/07/17 14:21 04/07/17 14:21 Oxygen Delivery Method Room Air Weight: 59.8 kg Body Mass Index (BMI) 22.6 Intake and Output for Last 24 Hours 04/05/17 04/06/17 04/07/17 23:59 23:59 23:59 Intake Total 800 / 800 Output Total 1000 / 1000 Balance -200 / -200 Laboratory Tests Past 24 Hrs 04/07/17 04/07/17 05:44 05:44 WBC 8.0 RBC 3.78 L Hgb 10.7 L Hct 33.2 L MCV 87.8 MCH 28.3 MCHC 32.2 RDW 15.2 H RDW Differential 47.8 H Plt Count 220 MPV 11.7 Immature Gran % (Auto) 0.100 Neut % (Auto) 54.9 Lymph % (Auto) 28.3 [place] % (Auto) 6.9 Eos % (Auto) 9.3 H Baso % (Auto) 0.5 Absolute Neuts (auto) 4.4 Absolute Lymphs (auto) 2.26 Total Counted Not Reportable Sodium 141 Potassium 3.6 Chloride 107 Carbon Dioxide 25.0 Anion Gap 9 BUN 16 Creatinine 0.68 Estim Creat Clear Calc 38.10 Est GFR (MDRD) Af Amer 107 Est GFR (MDRD) Non-Af 89 BUN/Creatinine Ratio 23.6 H Glucose 78 Calcium 9.1 POC Glucose 04/07/17 04/07/17 04/07/17 16:09 11:43 05:49 POC Glucose 134 H 151 H 81 04/06/17 21:38 POC Glucose 115 H Assessment/Plan Active and Suspected Problems (Last Reviewed 04/01/17 @ 13:59 by Diana Santos) Falls frequently (Acute) Confusion (Acute) Compression fracture (Acute) 1. Generalized weakness - drastically worsened since March 26 with multiple falls in the 3 days leading up to admission, L5 compression fracture seen on XR in the ER. Possibly some right sided weakness > Left side and pt more confused lately. Will do MRI lumbar spine to look for cord compression. Pt was independent and ambulatory until the . No stroke on MRI brain. CT brain with chronic changes in the ER. Trop neg. UA negative. TSH elevated, T4 pending. Echo pending. 2. Concern for NPH - MRI c/w NPH. Reportedly more confused than normal per daughter, and the weakness and falling is new, supposedly pt had no ambulation problems until the . pt is chronically incontinent, but there is no new or sudden difference in the incontinence. Will add Neurology consult today. Pt and daughter are agreeable to transfer to [facility] for NPH. I have placed a call with their transfer service and are awaiting to hear back from them. 3. L5 compression fracture - see xr, 2/2 fall at home. supportive care. PTOT. 4. PAF - rate controlled. On amio, toprol. Rate is in the 50s. Last echo 2014 EF 70% PASP 34 mmHg, 1+ MVI. Not on OAC likely as she had GI bleeding in the past with Colon CA and hx epistaxis. 5. CAD - aspirin, plavix, ARB, lovastatin, norvasc, terazosin 6. DMt2 - SSI, metformin held. 7. Colorectal CA - treated with resection in November, recent CEA was elevated. No abdominal pain lately, no bloody stools. No mets on MRI. Dr. Riley evaluated the pt and is not concerned for metastatic dz. 8. Chronic anemia - continue iron. normocytic. 9. Elevated TSH - check fT4 10. Poorly controlled HTN - with stroke ruled out will add norvasc in the morning. Tonight will provide PRN hydralazine. DVT ppx: lovenox DC planning: may be transferred to [facility] for NPH. Waiting for call back. This patient was seen by Stephan Laguna PA-C under the supervision of Doctor Holguin.
[2017-04-07 18:24] LABS: T4 Free Direct 1.29 ng/dL (0.76-1.46)
--- NOTE | 2017-04-07 18:26 | CHAPLAIN ---
Type of Pastoral Visit _x__ Initial Visit ___ Follow-up Visit ___ On-call Visit ___ General Patient Visit ___ Spiritual Assessment ___ Family Conference ___ Bereavement ___ Rapid Response ___ Code Blue ___ Other (describe below) Pastoral Care Referral From _x__ Patient ___ Family ___ Nurse ___ Physician ___ [employer] Airspace Officer ___ Machine Cloth Measurer ___ Other (describe below) Sacrament/Intervention _x__ Active listening ___ Anointing ___ Muslim ___ Bereavement ___ Communion ___ Akila exploration ___ ___ Life review _x__ Prayer ___ Reconciliation ___ Sacrament of Sick _x__ Supportive presence ___ Wedding ___ Other (describe below) Pastoral Comments
--- NOTE | 2017-04-07 18:34 | PCM.DC ---
- Discharge Diagnoses Current Active Problems: Current Active and Chronic Problems (Last Reviewed 04/01/17 @ 13:59 by Diana Santos) Falls frequently (Acute) Anemia (Chronic) Colon cancer (Chronic) Confusion (Acute) Compression fracture (Acute) You will use the following diet at home:: Cardiac Your food should be the consistency of: Regular Your liquids should be the consistency of: Regular/Thin Discharge Activity: Return to Normal Activity Allergies/Adverse Reactions: Allergies sulfamethoxazole [From Bactrim] Allergy (Verified 03/27/17 11:30) Other trimethoprim [From Bactrim] Allergy (Verified 03/27/17 11:30) Other ibuprofen Adverse Reaction (Verified 03/27/17 11:30) Nausea IVP dye Allergy (Uncoded 03/27/17 11:30) Unknown family member have anaphylaxis so she prefers premed. Medications to take at Discharge Lovastatin [Mevacor] 80 mg PO QHS 04/13/13 Metformin HCl [Glucophage] 500 mg PO BIDCM 04/13/13 Amlodipine [Norvasc] 5 mg PO QHS 05/11/14 Losartan Potassium [Cozaar] 100 mg PO DAILY 05/11/14 Temazepam [Restoril] 15 mg PO QHS 05/11/14 Cholecalciferol (Vitamin D3) [Vitamin D3] 2,000 unit PO DAILY 10/31/16 Biotin 5,000 mcg PO DAILY 11/25/16 Metoprolol Succinate [Toprol Xl] 100 mg PO DINNER 12/05/16 Omeprazole 40 mg PO QHS 12/05/16 Terazosin HCl 5 mg PO QHS 12/05/16 Aspirin [Aspirin, Baby] 81 mg PO DAILY@0800 01/27/17 Clopidogrel Bisulfate [Plavix] 75 mg PO QHS 01/27/17 Cyanocobalamin (Vitamin B-12) [Vitamin B-12] 1,000 mcg PO DAILY 01/27/17 Ferrous Sulfate 325 mg PO BIDCM 01/27/17 Amiodarone HCl [Cordarone] 200 mg PO QHS 04/06/17 Furosemide [Lasix] 10 mg PO DAILY 04/06/17 Potassium Chloride [K-Dur] 10 meq PO 4X/DAY 04/06/17 Primary Care Physician: Christian Galvan DO [Primary Care Provider] - Please follow up with your Primary Care Physician in: 2 weeks Proposed Discharge Date: 04/07/17
--- NOTE | 2017-04-07 18:35 | PCM.DC.SUM ---
Discharge Date and Diagnosis - Problem List Patient Problems: Active and Suspected Problems (Last Reviewed 04/01/17 @ 13:59 by Diana Santos) Falls frequently (Acute) Confusion (Acute) Compression fracture (Acute) Date of Admission: 04/06/17 Date of Discharge: 04/07/17 - Primary Discharge Diagnosis Active and Suspected Problems (Last Reviewed 04/01/17 @ 13:59 by Diana Santos) Normal pressure hydrocephalus L5 compression fracture Debility with new inability to walk Confusion Paroxysmal AF HTN poorly controlled Chronic anemia Hx Colon CA s/p resection 11/2016 T2DM HLD CAD - Secondary Discharge Diagnosis Chronic Problems (Last Reviewed 04/01/17 @ 13:59 by Diana Santos) Anemia (Chronic) Colon cancer (Chronic) Paroxysmal atrial fibrillation (Chronic) HLD (hyperlipidemia) (Chronic) HTN (hypertension) (Chronic) Diabetes mellitus (Chronic) Abnormal electrocardiogram (Chronic) Abnormal stress test (Chronic) 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) Hypokalemia (Chronic) Left carotid bruit (Chronic) Atherosclerotic heart disease of wiyot coronary artery without angina pectoris (Chronic) Anemia (Chronic) Malignant neoplasm of right colon (Chronic) Anemia (Chronic) Iron deficiency anemia due to chronic blood loss (Chronic) Diabetes mellitus type 2 in nonobese (Chronic) Hypertension (Chronic) Dyslipidemia (Chronic) CVD (cerebrovascular disease) (Chronic) Coronary artery disease (Chronic) Ca left breast s/p left mastectomy (Chronic) In CA,no adjuvant Rx given Hospital Course and Treatment Imaging Results: 04/07/17 10:21 Abdomen/Pelvis WITH Contrast [CT] Urgent Chest WITH Contrast [CT] Urgent 04/07/17 17:21 MRI Lumbar [Spine Lumbar (Routine)] [MRI] Urgent Consults: Dr. Riley - Hematology/Oncology Operations: None Procedures: None Summary of Care Provided: Physical exam on day of discharge: See daily progress note Hospital course: The patient is a 82 year old F who presented to the emergency room complaining of new onset of weakness and falls. The patient was reportedly ambulatory and without any physical deficits up until March 26. At which point she became more more weak at home to the point where she was unable to walk or even stand on her own. This had been severe in the 3 days leading up to her presentation with about 5 falls over those three days. She had a noted fall into the sitting position with subsequent lower back pain. She has been weaker on the right side with her daughter noticing she was unable to lift her right leg for transfers. She also been more confused over the past week as well. The patient has chronic incontinence of urine but does not have any new or sudden change in her incontinence. Initially the daughter was very concerned that she might have metastatic disease as she was recently told her CEA level came back elevated, and this patient had been treated with a colon resection in November for colon cancer. Also has a history of breast cancer. She was admitted to the hospital and underwent an MRI of the brain and had an oncology consult. The MRI revealed normal pressure hydrocephalus, no stroke was seen. Oncology did not think that there was any metastatic process. An x-ray of the lumbar spine revealed an L5 compression fracture likely as a result of 1 of the falls into the sitting position. The patient remained significantly confused in the hospital and very weak. She was able to stand and pivot to the commode with assistance. It was felt that she needed evaluation by her neurosurgeon, which we do not have here, for NPH. [facility] was called and the patient was accepted by Dr. Buckner to be transferred [facility]. Prior to discharge we had planned an MRI of the spine to look for metastases however the patient was accepted before this could be done. An echo was also planned as there initially was concerned her symptoms could have represented a CVA, however this was pending at the time of transfer and stroke was ruled out with the above MRI. We also planned to increase her Norvasc as her blood pressure was very poorly controlled with systolic pressures in the 180s and 90s. She is on amiodarone and metoprolol for paroxysmal atrial fibrillation. Her rate is well controlled and she is in sinus rhythm. She is not on any oral anticoagulants as she has a history of GI bleeding from the colon cancer and recent history of admissions for epistaxis. She does have CAD for which she is on Plavix, aspirin, beta-eunice, angiotensin receptor eunice, and statin. She has type 2 diabetes, on metformin, held at admission and placed on sliding scale. She is transferred in stable condition to [facility] her daughter, Keyonna, has been called, who is her primary caregiver at home. Both patient and daughter are agreeable to transfer at this time. Once stable, I recommend the patient follow-up with her primary care provider and her oncologist. This patient was seen by Stephan Laguna PA-C under the supervision of Doctor Chelsie. [] Discharge Diet: Low fat/ Low Cholesterol, 1800 Calorie Control Diet, 4000 mg Sodium Diet Discharge Activity: Return to Normal Activity Home Medications: Medications to take at Discharge Lovastatin [Mevacor] 80 mg PO QHS 04/13/13 Metformin HCl [Glucophage] 500 mg PO BIDCM 04/13/13 Amlodipine [Norvasc] 5 mg PO QHS 05/11/14 Losartan Potassium [Cozaar] 100 mg PO DAILY 05/11/14 Temazepam [Restoril] 15 mg PO QHS 05/11/14 Cholecalciferol (Vitamin D3) [Vitamin D3] 2,000 unit PO DAILY 10/31/16 Biotin 5,000 mcg PO DAILY 11/25/16 Metoprolol Succinate [Toprol Xl] 100 mg PO DINNER 12/05/16 Omeprazole 40 mg PO QHS 12/05/16 Terazosin HCl 5 mg PO QHS 12/05/16 Aspirin [Aspirin, Baby] 81 mg PO DAILY@0800 01/27/17 Clopidogrel Bisulfate [Plavix] 75 mg PO QHS 01/27/17 Cyanocobalamin (Vitamin B-12) [Vitamin B-12] 1,000 mcg PO DAILY 01/27/17 Ferrous Sulfate 325 mg PO BIDCM 01/27/17 Amiodarone HCl [Cordarone] 200 mg PO QHS 04/06/17 Furosemide [Lasix] 10 mg PO DAILY 04/06/17 Potassium Chloride [K-Dur] 10 meq PO 4X/DAY 04/06/17 Primary Care Physician: Christian Galvan DO [Primary Care Provider] - Please follow up with your Primary Care Physician in: 2 weeks Please Follow Up With: Shavonne Rliey MD When: 3-4 weeks Disposition: Acute care Hospital Minutes spent on discharge:: 45 Patient Condition:: Stable Meaningful Use Info Meaningful Use Diagnoses (Choose all that apply): None applicable
[2017-04-07 19:48] VITALS: BP 166/44; PULSE 63
[2017-04-07] MEDS: 0.9% NaCl Peripheral Flush Adult/Peds IV (19:51)
--- NOTE | 2017-04-07 20:15 | NURSING ---
Report given to Ching FISHER at [facility]. Pt being transferred d/t MRI showing hydrocephalus. Waiting on transfer at this time.
[2017-04-07 20:25] VITALS: BP 166/44; PULSE 63; RESP 18; TEMP 36.3; O2SAT 96
[2017-04-07] MEDS: Acetaminophen 325 MG Tablet 650 MG PO (20:59)
== END 2017-04-07 21:45 | disposition short-term general hospital (02) | DRG 57 ==
LOC: ED 15:25 → MS2 17:46
PROVIDERS: Physician Assistant; Admitting Provider Internal Medicine; Emergency Provider Emergency Medicine; Family Provider Family Medicine; PCP Family Medicine; Visit Provider Internal Medicine
DX: G91.2 (Idiopathic) normal pressure hydrocephalus (principal); I48.0 Paroxysmal atrial fibrillation; S32.059A Unspecified fracture of fifth lumbar vertebra, initial encounter for closed fracture; I11.0 Hypertensive heart disease with heart failure; I50.30 Unspecified diastolic (congestive) heart failure; D64.9 Anemia, unspecified; E11.9 Type 2 diabetes mellitus without complications; W19.XXXA Unspecified fall, initial encounter; E78.5 Hyperlipidemia, unspecified; I25.10 Atherosclerotic heart disease of native coronary artery without angina pectoris; R29.6 Repeated falls; R32 Unspecified urinary incontinence; Z90.49 Acquired absence of other specified parts of digestive tract; Z87.891 Personal history of nicotine dependence; Z79.84 Long term (current) use of oral hypoglycemic drugs; Z85.038 Personal history of other malignant neoplasm of large intestine; Z85.3 Personal history of malignant neoplasm of breast; Y92.009 Unspecified place in unspecified non-institutional (private) residence as the place of occurrence of the external cause; Z90.12 Acquired absence of left breast and nipple; Z79.899 Other long term (current) drug therapy
CPT/HCPCS: 36415; 70450; 70553; 71260; 72100; 72148; 74177; 80048; 80076; 81001; 82962; 84439; 84443; 84484; 85025; 93005; 97162; 97165; 97802; 99285; A9585; J7040; Q9967; A4216

== ENCOUNTER → 2017-06-20 11:34 | Outpatient (CLI) | payer MEDICARE, SELFPAY ==
[2017-06-20 12:24] LABS: Absolute Lymphocyte Count 1.61 X10^3/ul (0.83-4.51); Absolute Neutrophil Count 5.8 X10^3/uL (2.0-7.7); Basophil# 0.02 X10^3/uL; Basophil% 0.2 % (0-1); Eosinophil# 0.19 X10^3/uL; Eosinophils% 2.4 % (0-5); Hematocrit 35.7 % (37-47); Hemoglobin 11.2 g/dl (12.0-15.0); Lymphocyte # 1.61 X10^3/ul (4.0); Mean Corp Hgb Conc 31.4 g/gl (32-36); Mean Corpuscular Hgb 27.1 pg (27.0-32.0); Mean Corpuscular Volume 86.4 fL (81-99); Mean Platelet Vol. 10.5 fl (6.2-12.0); Monocyte# 0.47 X10^3/uL; Monocyte% 5.8 % (0-10); Neutrophil # 5.76 X10^3/uL (2.7-7.7); Neutrophil % 71.5 % (47-70); Platelet Count 280 K/mm3 (150-450); RBC Distribution Width CV 15.5 % (11.6-14.6); RBC Distribution Width SD 49.5 fl (35.1-43.9); Red Blood Count 4.13 M/mm3 (4.2-5.4); White Blood Count 8.1 K/mm3 (4.4-11.0)
[2017-06-20 12:25] LABS: POSITIVE COUNT NO; POSITIVE DIFFERENTIAL NO; POSITIVE MORPHOLOGY NO
[2017-06-20 13:02] LABS: AST(SGOT) 13 U/L (15-37); Alanine Aminotransfer ALT/SGPT 17 U/L (13-56); Albumin, Serum 3.6 g/dL (3.2-5.0); Alkaline Phosphatase 92 U/L (45-117); Anion Gap 7 (5-15); BUN 12 mg/dL (7-18); BUN/Creat Ratio 16.1 RATIO (10-20); Calcium,Total 9.1 mg/dL (8.5-10.1); Chloride 105 mmol/L (98-107); Creatinine, Serum 0.75 mg/dL (0.55-1.02); EST Glomerular Filtration Rate 79 mL/min (>60); Est Glom Filt Rate - Afr Amer 96 mL/min (>60); Globulin 3.6 g/dL (2.2-4.2); Glucose 164 mg/dL (74-106); Potassium 3.2 mmol/L (3.5-5.1); Protein, Total 7.2 g/dL (6.4-8.2); Sodium Level 141 mmol/L (136-145)
[2017-06-22 11:10] LABS: Carcinoembryonic Antigen 2139 5.1 ng/mL (0.0-4.7)
== END ==
PROVIDERS: Family Provider Family Medicine; PCP Family Medicine; Visit Provider Internal Medicine Hematology & Oncology
DX: C18.9 Malignant neoplasm of colon, unspecified (principal); D64.9 Anemia, unspecified
CPT/HCPCS: 36415; 80053; 82378; 85025

== ENCOUNTER 2017-08-06 11:36 | Emergency (ER) | payer MEDICARE, SELFPAY ==
[2017-08-06 11:37] VITALS: BP 133/43; PULSE 65; RESP 18; TEMP 36.7; O2SAT 96; BMI 20.9
--- NOTE | 2017-08-06 11:57 | EKG12_ITS ---
Test Reason : BACK PAIN Blood Pressure : / mmHG Vent. Rate : 063 BPM Atrial Rate : 063 BPM P-R Int : 186 ms QRS Dur : 096 ms QT Int : 452 ms P-R-T Axes : 065 047 063 degrees QTc Int : 462 ms Normal sinus rhythm Normal ECG Confirmed by SUE BALLARD ([id number]), editorial specialist VICTORIA FRANCO ([id number] on 08/17/2017 6:32:19 PM Referred By: AGATHA Confirmed By:SUE BALLARD
--- NOTE | 2017-08-06 12:05 | RAD_ITS ---
STUDY: X-RAY CHEST REASON FOR EXAM: Female, 82 years old. Shortness of breath and dyspnea. TECHNIQUE: Single AP portable view of the chest. COMPARISON: Comparison is made with prior study dated January 31, 2017. FINDINGS: A right-sided ventriculoperitoneal shunt tube is seen. EKG electrodes are present. Hyperinflation. The lungs are clear. There is no demonstrated pleural abnormality. Normal size heart. Normal mediastinum and abbi. Normal visualized pulmonary arteries. There is atherosclerotic calcification of the aortic arch with tortuosity. Normal visualized thoracic spine. Normal visualized ribs, clavicles, and shoulders. There is no demonstrated abnormality of the visualized soft tissue structures of the upper abdomen. RAD/Chest 1 View (Portable) IMPRESSION: Hyperinflation. The lungs are clear. Electronically Signed: Earl Zheng MD at 12:27 EDT Tel [phone], Service support ,
[2017-08-06] MEDS: 0.9% Normal Saline 1,000 ML 60 ML IV (12:16)
[2017-08-06 12:29] LABS: Absolute Lymphocyte Count 1.34 X10^3/ul (0.83-4.51); Absolute Neutrophil Count 7.2 X10^3/uL (2.0-7.7); Basophil# 0.04 X10^3/uL; Basophil% 0.4 % (0-1); Eosinophils% 2.2 % (0-5); Hemoglobin 10.5 g/dl (12.0-15.0); Lymphocyte # 1.34 X10^3/ul (4.0); Lymphocyte % 14.6 % (19-41); Mean Corp Hgb Conc 31.8 g/gl (32-36); Mean Corpuscular Hgb 27.1 pg (27.0-32.0); Mean Corpuscular Volume 85.1 fL (81-99); Mean Platelet Vol. 10.9 fl (6.2-12.0); Monocyte# 0.39 X10^3/uL; Monocyte% 4.2 % (0-10); Neutrophil # 7.21 X10^3/uL (2.7-7.7); Neutrophil % 78.6 % (47-70); Platelet Count 260 K/mm3 (150-450); RBC Distribution Width CV 15.5 % (11.6-14.6); Red Blood Count 3.88 M/mm3 (4.2-5.4); White Blood Count 9.2 K/mm3 (4.4-11.0)
[2017-08-06 12:35] LABS: POSITIVE COUNT NO; POSITIVE DIFFERENTIAL NO; POSITIVE MORPHOLOGY NO
[2017-08-06 12:43] LABS: Anion Gap 8 (5-15); BUN 13 mg/dL (7-18); BUN/Creat Ratio 14.9 RATIO (10-20); Calcium,Total 9.1 mg/dL (8.5-10.1); Chloride 105 mmol/L (98-107); Creatinine, Serum 0.88 mg/dL (0.55-1.02); EST Glomerular Filtration Rate 66 mL/min (>60); Est Glom Filt Rate - Afr Amer 80 mL/min (>60); Glucose 179 mg/dL (74-106); Sodium Level 137 mmol/L (136-145)
[2017-08-06 13:34] VITALS: BP 133/65; PULSE 63; RESP 18; O2SAT 97
--- NOTE | 2017-08-06 15:00 | EKG12_ITS ---
Test Reason : REPEAT Blood Pressure : / mmHG Vent. Rate : 058 BPM Atrial Rate : 058 BPM P-R Int : 176 ms QRS Dur : 098 ms QT Int : 508 ms P-R-T Axes : 065 057 073 degrees QTc Int : 498 ms Sinus bradycardia Nonspecific ST abnormality Prolonged QT Abnormal ECG Confirmed by SUE BALLARD ([id number]), telegraph editor VICTORIA FRANCO ([id number] on 08/17/2017 6:33:06 PM Referred By: AGATHA Confirmed By:SUE BALLARD
--- NOTE | 2017-08-06 15:26 | ED.VISSUMM ---
- ER Visit Summary Date of Service: 08/06/17 Chief Complaint: Back pain and shortness of breath History of Present Illness: The patient is a 82 F who reports that approximately 1 hour prior to arrival she was lying in bed. She developed nausea followed by a burning sensation in the back of her neck and upper back. She then developed some slight shortness of breath. Symptoms lasted approximately 20 minutes and then spontaneously resolved. She was not diaphoretic. At this time she has no complaints. Past history significant for: Breast cancer, diabetes, hypertension, high cholesterol, paroxysmal A. fib. Physical Examination: Vital signs are unremarkable. Patient sitting upright in bed no acute distress. She is alert and talkative. Head neck examination is unremarkable. Heart is regular rate and rhythm with a 4/6 murmur. Lung sounds are clear. Abdomen is soft nontender. Back examination was no reproducible tenderness. Lower extremity examination reveals 2+ edema that is symmetric. No sign of cellulitis. Test Results: EKG is sinus at 63 with no sign of acute ischemia. Portable chest x-ray shows hyperinflation of lungs are clear. CBC was normal white count with hemoglobin 10.5. Chemistry studies are significant for glucose of 179. Troponin is less than 0.015. Emergency Department Course and Treatment: Patient was given minimal IV fluids here. After initial test results were returned I spoke with patient and family at bedside. Patient is currently in palliative care. She states that even if this was her heart she does not want stress test or any further testing done. She would wish only for medical management. I did discuss with her the possible this could be reflux as well. She agreed to stay for 3 hour rule out. Repeat EKG is unchanged. Repeat troponin is less than 0.015. On repeat evaluation patient is resting comfortably. She has had no recurrence of her symptoms while here. She be discharged home with family. Treatment Plan: [] Disposition: Discharge Impression: 1. Back pain, resolved 2. Shortness of breath, resolved This note was generated with [employer] dictation software. It may contain incorrect words, spelling, and punctuation that were not noted in review of the chart prior to signing ED Disposition - Plan for ED Patient: Chief Complaint: Fatigue Referrals: Christian Galvan DO [Primary Care Provider] -
--- NOTE | 2017-08-06 15:47 | ED.DEP ---
ED Disposition - Plan for ED Patient: Disposition: Home or Assisted Living Chief Complaint: Fatigue Instructions: ED Weakness UKO, ED Neck Back Pain General Referrals: Christian Galvan DO [Primary Care Provider] - 1 Week
[2017-08-06 16:03] VITALS: BP 124/77; PULSE 68; RESP 15; O2SAT 97
== END 2017-08-06 17:21 | disposition home or self-care (01) ==
PROVIDERS: Emergency Provider Emergency Medicine; Family Provider Family Medicine; PCP Family Medicine
DX: M54.6 Pain in thoracic spine (principal); R06.02 Shortness of breath; I10 Essential (primary) hypertension; I48.0 Paroxysmal atrial fibrillation; E11.9 Type 2 diabetes mellitus without complications; E78.00 Pure hypercholesterolemia, unspecified; Z85.3 Personal history of malignant neoplasm of breast; Z85.038 Personal history of other malignant neoplasm of large intestine; Z87.891 Personal history of nicotine dependence; Z79.82 Long term (current) use of aspirin; Z79.02 Long term (current) use of antithrombotics/antiplatelets; Z79.84 Long term (current) use of oral hypoglycemic drugs; Z79.891 Long term (current) use of opiate analgesic; Z79.899 Other long term (current) drug therapy
CPT/HCPCS: 71045; 80048; 84484; 85025; 93005; 96360; 96361; 99285; J7030; A4216

== ENCOUNTER 2018-05-05 16:23 | Emergency (ER) | payer MEDICARE, MEDICAID, SELFPAY ==
[2018-05-05 16:25] VITALS: BP 154/45; PULSE 62; RESP 16; TEMP 36.7; O2SAT 97; BMI 21.4
--- NOTE | 2018-05-05 16:57 | CT_ITS ---
STUDY: CT LUMBAR SPINE WITHOUT CONTRAST REASON FOR EXAM: Male, 83 years old. Back pain, fall RADIATION DOSAGE (If Supplied By Facility): CTDIvol = ( 16.10 ) mGy, DLP = ( 415.48 ) mGycm TECHNIQUE: The patient was scanned in a multi detector CT scanner. High resolution transaxial imaging was performed. Images were obtained from to . Sagittal and coronal images were reconstructed. Individualized dose optimization techniques were used for this CT. COMPARISON: None FINDINGS: Normal lumbar lordosis. There is no substantial scoliosis. There is likely a surgical staple line at the base of the appendix likely appendectomy, and/or partial colectomy. This is incompletely included on the [id number]. That should be correlated clinically. There are extensive vascular calcifications. There is significant generalized osteopenia.. There is irregularity of the inferior endplate of T12. The superior plate of T12 is not included on the [id number]. There is perivertebral stranding within the fat around the T12 vertebral body. L1-2: Normal endplates. Normal disc height and morphology. There is mild facet spondylosis.. Normal central canal and bilateral lateral recesses. Normal bilateral intervertebral neural foramina. L2-3: There is moderate to severe compression fracture at L3 there is subchondral sclerosis. There is no significant perivertebral edema. There is a small left paracentral disc protrusion. There is mild central canal narrowing. There is ligamentous hypertrophy and facet spondylosis. . There is mild to moderate left foraminal stenosis there is no right foraminal stenosis L3-4: There is mild broad-based posterior bulging annulus with a significant ligamentous hypertrophy. There is moderate facet degenerative changes. There is moderate central canal narrowing. There is no foraminal stenosis. L4-5: There is broad-based posterior bulging annulus. There is significant ligamentous hypertrophy. Moderate facet degenerative changes. There is severe central canal stenosis. There is mild bilateral lateral foraminal stenosis L5-S1: Normal endplates. Normal disc height and morphology. Mild facet spondylosis. Normal central canal and bilateral lateral recesses. Normal bilateral intervertebral neural foramina. Normal visualized paraspinous soft tissue structures. There is a catheter within the abdomen and pelvis which extends off the superior field of view. CT/Spine Lumbar without Contrast IMPRESSION: Acute mild compression fracture inferior endplate of T12 superior endplate is not included on the [id number] Moderate to severe compression fracture of L3 is most likely is old there is subchondral sclerosis there is no significant paravertebral edema significant multilevel spondylosis disc osteophyte complexes multifactorial moderate to severe central canal stenosis, and foraminal stenoses findings which are most severe at L4-L5 Small left paracentral disc protrusion at L2-L3 Generalized osteopenia Postsurgical changes in the colon partially included on [id number] likely appendectomy catheter demonstrated within the abdomen and pelvis which extends off the superior field of view this could be ventricular peritoneal shunt catheter Electronically Signed: César Montes, at 18:48 EST Tel , Service support ,
--- NOTE | 2018-05-05 16:58 | RAD_ITS ---
STUDY: X-RAY - PELVIS REASON FOR EXAM: Male, 83 years old. Fall, right hip pain TECHNIQUE: One view of the pelvis was obtained. COMPARISON: None. FINDINGS: There is a non-specific bowel gas pattern. Normal visualized soft tissue structures. There are extensive vascular calcifications. There is significant osteopenia. Normal bilateral iliac wings, sacroiliac joints and visualized sacrum. Normal visualized bilateral superior and inferior pubic rami. Normal pubic symphysis. Normal ischial tuberosities. Normal visualized right femoral head. Normal right acetabulum. Normal right hip joint. There is mild irregularity through the superior margin of the right lesser trochanter. Normal visualized left femoral head. Normal left acetabulum. Normal left hip joint. There are degenerative changes lower lumbar spine. RAD/Pelvis 1 or 2 Views IMPRESSION: Catheter within the pelvis Spondylosis changes lumbar spine Extensive vascular calcifications generalized osteopenia Mild irregularity right lesser trochanter which could be degenerative and projectional finding however fracture cannot be excluded. CT should be considered Electronically Signed: César Montes, at 17:49 EST Tel , Service support ,
[2018-05-05 18:57] VITALS: BP 139/36; PULSE 61; RESP 15; O2SAT 94
--- NOTE | 2018-05-05 19:03 | CT_ITS ---
STUDY: CT THORACIC SPINE WITHOUT CONTRAST REASON FOR EXAM: Female, 83 years old. Back pain RADIATION DOSAGE (If Supplied By Facility): CTDIvol = ( 18.42 ) mGy, DLP = ( 728.56 ) mGycm TECHNIQUE: The patient was scanned in a multi detector CT scanner. High resolution imaging was performed. . Sagittal and coronal images were reconstructed. Individualized dose optimization techniques were used for this CT. COMPARISON: None. FINDINGS: Normal visualized cervical spine. There is mild left pleural thickening. There is bibasilar subsegmental atelectasis. There is a hiatal hernia. There is a nondisplaced fracture through the inferior endplate of T12. There is stranding within the adjacent perivertebral fat. There is multilevel disc space narrowing with anterior and posterior osteophytes. There is generalized osteopenia. CT/Spine Thoracic without Contras IMPRESSION: Nondisplaced fracture through the inferior endplate of T12 Multilevel spondylosis Bibasilar subsegmental atelectasis, mild left pleural thickening Hiatal hernia Generalized osteopenia Electronically Signed: César Montes, at 20:29 EST Tel , Service support ,
[2018-05-05] MEDS: oxyCODONE 5 MG Tablet PO ×2 (19:08→21:11)
[2018-05-05 20:14] VITALS: RESP 15
--- NOTE | 2018-05-05 20:44 | ED.VISSUMM ---
- ER Visit Summary Date of Service: 05/05/18 Chief Complaint: Fall History of Present Illness: The patient is a 83 F who is on hospice. She reached behind her to grab a jug of milk lost her balance and fell into a sitting position. She has pain in her low back. She did not hit her head. Physical Examination: Afebrile vital signs are stable Gen: Well-nourished well-developed Head: Normocephalic atraumatic Eyes: Perrl EOMI ENT: TMs clear no rhinorrhea moist mucous membranes Neck: Supple no lymphadenopathy no JVD nontender CVS: Regular rate rhythm no murmurs normal S1-S2 Respiratory: No distress clear to auscultation bilaterally chest nontender Abdomen: Soft nontender nondistended normal bowel sounds no masses Back: Tender to palpation in the midline of the lumbar spine Extremity: Nontender no edema Skin: Normal color no rash Neuro: alert orientated ?3 CN II-XII intact normal strength sensation reflexes Psych: Normal affect normal mood Test Results: CT of the thoracic and lumbar spine demonstrated a T12 inferior endplate fracture nondisplaced. Pelvis films are negative Emergency Department Course and Treatment: Patient received oxycodone. She is to have her family contact hospice and with no injury. They will handle the pain control. Impression: 1. T12 inferior endplate fracture This note was generated with [employer] dictation software. It may contain incorrect words, spelling, and punctuation that were not noted in review of the chart prior to signing ED Disposition - Plan for ED Patient: Disposition: Home or Assisted Living Instructions: ED Fx Comp Vertebral Referrals: Christian Galvan DO [Primary Care Provider] - 1-2 Weeks Additional Instructions: Please call hospice to assist with pain medication.
--- NOTE | 2018-05-05 21:05 | ED.RN ---
FAMILY REQUESTING MORE PAIN MEDICATION FOR PT, AND TO SPEAK WITH DR. SMALLWOOD.
== END 2018-05-05 22:01 | disposition skilled nursing facility (03) ==
PROVIDERS: Emergency Provider Emergency Medicine; Family Provider Family Medicine; PCP Family Medicine
DX: S22.088A Other fracture of T11-T12 vertebra, initial encounter for closed fracture (principal); I25.10 Atherosclerotic heart disease of native coronary artery without angina pectoris; K21.9 Gastro-esophageal reflux disease without esophagitis; E11.9 Type 2 diabetes mellitus without complications; E78.00 Pure hypercholesterolemia, unspecified; Z87.891 Personal history of nicotine dependence; Z79.84 Long term (current) use of oral hypoglycemic drugs; Z79.82 Long term (current) use of aspirin; Z79.891 Long term (current) use of opiate analgesic; Z79.899 Other long term (current) drug therapy; W18.30XA Fall on same level, unspecified, initial encounter; Y93.89 Activity, other specified; Y92.009 Unspecified place in unspecified non-institutional (private) residence as the place of occurrence of the external cause; Y99.8 Other external cause status
CPT/HCPCS: 72128; 72131; 72170; 99283

== ENCOUNTER 2018-07-21 11:31 | Emergency (ER) | payer MEDICARE, SELFPAY ==
[2018-07-21] VITALS (13 sets, daily range): BP systolic 101–132; BP diastolic 27–97; PULSE 58–82; RESP 13–18; TEMP 36.6–36.9; O2SAT 84–96; BMI 22.6
--- NOTE | 2018-07-21 12:39 | ED.RN ---
DISPUTE BETWEEN SON AND DAUGHTER, SECURITY INVOLVED. SON HAS LEFT THE PROPERTY, DAUGHTER REMAINS.
--- NOTE | 2018-07-21 12:40 | EKG12_ITS ---
Test Reason : SOB Blood Pressure : / mmHG Vent. Rate : 071 BPM Atrial Rate : 288 BPM P-R Int : 000 ms QRS Dur : 088 ms QT Int : 436 ms P-R-T Axes : 000 046 -87 degrees QTc Int : 473 ms Baseline artifact makes interpretation of rhythm suboptimel. Probable sinus rhythm Septal infarct , age undetermined Abnormal ECG Confirmed by KWAME ROSENTHAL ([id number]), content editor VICTORIA FRANCO ([id number] on 07/26/2018 2:45:31 PM Referred By: SEAN Confirmed By:NUSRAT ROSENTHAL
--- NOTE | 2018-07-21 12:41 | ED.RN ---
SPOKE WITH JOEL, BIOLOGICAL SCIENCE AIDE AT [facility], SHE WILL BE SENDING THE CODE STATUS PAPERWORK WELL THE MEDICATION LIST.
--- NOTE | 2018-07-21 12:43 | ED.VIS.DYS ---
History of Present Illness Chief Complaint: Shortness of Breath Informant: Patient, EMS Onset: - - unknown -- worse since yesterday when diagnosed w/ pneumonia Associated Symptoms: Cough Chest Pain: None Narrative: Lives in detention. History very limited. Patient confused. Family is present but not necessarily helpful other than the fact that she was diagnosed with pneumonia yesterday at the detention by a chest x-ray, the results were sent but there was no list of medications, medical problems, or other information other than the fact that she is DNR CC according to the detention facesheet but detention staff and family state that she is either refusing hospice, or refused by hospice. Information here really is unknown. - Past Medical History (1) Falls frequently Status: Chronic (2) Anemia Status: Chronic (3) Atherosclerotic heart disease of [place] coronary artery without angina pectoris Status: Chronic (4) Breast cancer Status: Chronic (5) CVD (cerebrovascular disease) Status: Chronic (6) Colon cancer Status: Chronic (7) Diabetes mellitus Status: Chronic (8) HLD (hyperlipidemia) Status: Chronic (9) HTN (hypertension) Status: Chronic (10) Paroxysmal atrial fibrillation Status: Chronic Past Medical History - Allergies and Home Meds Allergies/Adverse Reactions: Allergies sulfamethoxazole [From Bactrim] Allergy (Verified 09/22/17 14:41) Other trimethoprim [From Bactrim] Allergy (Verified 09/22/17 14:41) Other ibuprofen Adverse Reaction (Verified 09/22/17 14:41) Nausea IVP dye Allergy (Uncoded 08/06/17 12:26) Unknown family member have anaphylaxis so she prefers premed. Primary Care Physician: Wilian Marin MD [Primary Care Provider] - Surgical History: colectomy, - - Laparoscopic right hemicolectomy Lives: Retirement Smoking Status: Never smoker - Family History Paternal Family History: Family History (Last Reviewed 09/22/17 @ 15:00 by Harmeet Hernandez MD) Mother CAD (coronary artery disease) Diabetes Brother CAD (coronary artery disease) Cancer Son CAD (coronary artery disease) CVA (cerebral vascular accident) Myocardial infarction Hx of CABG Father Cancer Diabetes Brother Diabetes Hypertension Alzheimers disease Brother CVA (cerebral vascular accident) Brother CAD (coronary artery disease) Cancer Brother CVA (cerebral vascular accident) Brother Diabetes Brother Cancer Diabetes Sister Diabetes Sister CVA (cerebral vascular accident) Sister Diabetes Sister CVA (cerebral vascular accident) Hypertension Diabetes Alzheimers disease Sister Diabetes Rheumatic fever Sister Cancer Hypertension Diabetes Hx of CABG Daughter Diabetes Hypertension Graves disease Family History: Reports: No pertinent history Maternal Family History: Family History (Last Reviewed 09/22/17 @ 15:00 by Harmeet Hernandez MD) Mother CAD (coronary artery disease) Diabetes Brother CAD (coronary artery disease) Cancer Son CAD (coronary artery disease) CVA (cerebral vascular accident) Myocardial infarction Hx of CABG Father Cancer Diabetes Brother Diabetes Hypertension Alzheimers disease Brother CVA (cerebral vascular accident) Brother CAD (coronary artery disease) Cancer Brother CVA (cerebral vascular accident) Brother Diabetes Brother Cancer Diabetes Sister Diabetes Sister CVA (cerebral vascular accident) Sister Diabetes Sister CVA (cerebral vascular accident) Hypertension Diabetes Alzheimers disease Sister Diabetes Rheumatic fever Sister Cancer Hypertension Diabetes Hx of CABG Daughter Diabetes Hypertension Graves disease Family History: Reports: No pertinent history Review of Systems ROS: Unable to Obtain - able to obtain some, but limited -- see below General: Reports: Malaise ENT: Denies: Bilateral ear pain Cardiovascular: Denies: Chest pain Respiratory: Reports: Dyspnea Gastrointestinal: Reports: Nausea. Denies: Abdominal pain, Vomiting Musculoskeletal: Reports: Swelling - BLE. Denies: Neck pain, Back pain, Extremity Pain Neurological: Denies: Headache Physical Exam Vital Signs/Narrative: Vital Signs Temp Pulse Resp BP Pulse Ox 07/21/18 11:36 98.1 F 92 07/21/18 11:32 98.3 F 68 16 122/45 H 84 Inital Vital Signs reviewed: Yes General: Well nourished, Well developed, Acute Distress - mild, respiratory Head: Normocephalic, Atraumatic Eyes: Perrl, EOMI ENT: Moist mucous membranes, No rhinorrhea Neck: Supple, Nontender, No JVD Cardiovascular: Regular rate, Regular rhythm, No murmurs. Negative for: Tachycardia Respiratory: Chest nontender, Rhonchi - bibasilar, - - speaking in 1-5 word sentences. Negative for: Retractions Abdomen: Soft, Nontender, Nondistended, Normal bowel sounds Back: Nontender, Normal Inspection Extremities: Nontender, Edema - 2+ BLE. Negative for: Calf Tenderness Skin: Normal color, No rash, No Trauma Neurological: Alert, Cranial nerves II-XII grossly intact, Normal Strength, Normal Sensation, Confused, Disoriented Psychological: Normal affect, Normal Mood Diagnostic/Tx/Re-eval - Rhythm Strip Rhythm Strip: Sinus Rhythm Rate: 70 Ectopy: None - EKG Initial EKG Interpretation: Sinus Rhythm, No Acute Injury Pattern Prior: Unchanged - Medical Decision Making Work-up shows bibasilar pneumonia with a high white blood count at 19. EKG shows sinus rhythm and there is no sign of injury. However she is requiring a high amount of oxygen, after several nebulizer treatments which made her breathe much easier, she is at 91% on a nonrebreather. At one point she was found off of her oxygen and without pulse oximetry, lethargic but with otherwise normal vital signs. I checked her pulse ox and it was very low but she was arousable and said that her breathing was better. She is DNR comfort care only according to several documents that accompany her. Discussed with Dr. Marin, the doctor of record. States he saw the patient this morning and her oxygen levels were low on a nasal cannula, urine culture returned positive and he had started her on Cipro empirically, that was then changed to Zosyn to help cover her pneumonia and urine, to which it was sensitive. He agrees with sending her back as escalating care further would not be done for this patient. ED Disposition - Plan for ED Patient: Disposition: Senior Living Facility Diagnosis: Healthcare-associated pneumonia, Acute respiratory failure with hypoxia Instructions: ED Pneumonia Adult Referrals: Wilian Marin MD [Primary Care Provider] - 1-2 Days if not improving
--- NOTE | 2018-07-21 12:44 | RAD_ITS ---
STUDY: X-RAY CHEST REASON FOR EXAM: Female, 83 years old. Shortness of breath with dyspnea TECHNIQUE: Single AP portable view of the chest. COMPARISON: 08/06/2017 FINDINGS: There is diffuse patchy dense airspace disease throughout the lungs; right greater than left. Could represent infection, edema or inflammation; could also represent a combination. Malignant involvement is not fully excluded. There is no demonstrated pleural abnormality. Normal size heart. Normal mediastinum and abbi. Normal visualized pulmonary arteries. Normal visualized aortic arch and descending thoracic aorta. Normal visualized thoracic spine. Normal visualized ribs, clavicles, and shoulders. There is no demonstrated abnormality of the visualized soft tissue structures of the upper abdomen. RAD/Chest 1 View (Portable) IMPRESSION: Development of dense patchy airspace disease bilaterally; right greater than left Electronically Signed: Joaquim Ovalle DO at 13:07 EDT Tel , Service support ,
--- NOTE | 2018-07-21 12:48 | ED.DCSUM_ITS ---
History of Present Illness Chief Complaint: Shortness of Breath Informant: Patient, EMS Onset: - - unknown -- worse since yesterday when diagnosed w/ pneumonia Associated Symptoms: Cough Chest Pain: None Narrative: Lives in halfway. History very limited. Patient confused. Family is present but not necessarily helpful other than the fact that she was diagnosed with pneumonia yesterday at the halfway by a chest x-ray, the results were sent but there was no list of medications, medical problems, or other information other than the fact that she is DNR CC according to the halfway facesheet but halfway staff and family state that she is either refusing hospice, or refused by hospice. Information here really is unknown. - Past Medical History (1) Falls frequently Status: Chronic (2) Anemia Status: Chronic (3) Atherosclerotic heart disease of [place] coronary artery without angina pectoris Status: Chronic (4) Breast cancer Status: Chronic (5) CVD (cerebrovascular disease) Status: Chronic (6) Colon cancer Status: Chronic (7) Diabetes mellitus Status: Chronic (8) HLD (hyperlipidemia) Status: Chronic (9) HTN (hypertension) Status: Chronic (10) Paroxysmal atrial fibrillation Status: Chronic Past Medical History - Allergies and Home Meds Allergies/Adverse Reactions: Allergies sulfamethoxazole [From Bactrim] Allergy (Verified 09/22/17 14:41) Other trimethoprim [From Bactrim] Allergy (Verified 09/22/17 14:41) Other ibuprofen Adverse Reaction (Verified 09/22/17 14:41) Nausea IVP dye Allergy (Uncoded 08/06/17 12:26) Unknown family member have anaphylaxis so she prefers premed. Primary Care Physician: Wilian Marin MD [Primary Care Provider] - Surgical History: colectomy, - - Laparoscopic right hemicolectomy Lives: Halfway Smoking Status: Never smoker - Family History Paternal Family History: Family History (Last Reviewed 09/22/17 @ 15:00 by Harmeet Hernandez MD) Mother CAD (coronary artery disease) Diabetes Brother CAD (coronary artery disease) Cancer Son CAD (coronary artery disease) CVA (cerebral vascular accident) Myocardial infarction Hx of CABG Father Cancer Diabetes Brother Diabetes Hypertension Alzheimers disease Brother CVA (cerebral vascular accident) Brother CAD (coronary artery disease) Cancer Brother CVA (cerebral vascular accident) Brother Diabetes Brother Cancer Diabetes Sister Diabetes Sister CVA (cerebral vascular accident) Sister Diabetes Sister CVA (cerebral vascular accident) Hypertension Diabetes Alzheimers disease Sister Diabetes Rheumatic fever Sister Cancer Hypertension Diabetes Hx of CABG Daughter Diabetes Hypertension Graves disease Family History: Reports: No pertinent history Maternal Family History: Family History (Last Reviewed 09/22/17 @ 15:00 by Harmeet Hernandez MD) Mother CAD (coronary artery disease) Diabetes Brother CAD (coronary artery disease) Cancer Son CAD (coronary artery disease) CVA (cerebral vascular accident) Myocardial infarction Hx of CABG Father Cancer Diabetes Brother Diabetes Hypertension Alzheimers disease Brother CVA (cerebral vascular accident) Brother CAD (coronary artery disease) Cancer Brother CVA (cerebral vascular accident) Brother Diabetes Brother Cancer Diabetes Sister Diabetes Sister CVA (cerebral vascular accident) Sister Diabetes Sister CVA (cerebral vascular accident) Hypertension Diabetes Alzheimers disease Sister Diabetes Rheumatic fever Sister Cancer Hypertension Diabetes Hx of CABG Daughter Diabetes Hypertension Graves disease Family History: Reports: No pertinent history Review of Systems ROS: Unable to Obtain - able to obtain some, but limited -- see below General: Reports: Malaise ENT: Denies: Bilateral ear pain Cardiovascular: Denies: Chest pain Respiratory: Reports: Dyspnea Gastrointestinal: Reports: Nausea. Denies: Abdominal pain, Vomiting Musculoskeletal: Reports: Swelling - BLE. Denies: Neck pain, Back pain, Extremity Pain Neurological: Denies: Headache Physical Exam Vital Signs/Narrative: Vital Signs Temp Pulse Resp BP Pulse Ox 07/21/18 11:36 98.1 F 92 07/21/18 11:32 98.3 F 68 16 122/45 H 84 Inital Vital Signs reviewed: Yes General: Well nourished, Well developed, Acute Distress - mild, respiratory Head: Normocephalic, Atraumatic Eyes: Perrl, EOMI ENT: Moist mucous membranes, No rhinorrhea Neck: Supple, Nontender, No JVD Cardiovascular: Regular rate, Regular rhythm, No murmurs. Negative for: Tachycardia Respiratory: Chest nontender, Rhonchi - bibasilar, - - speaking in 1-5 word sentences. Negative for: Retractions Abdomen: Soft, Nontender, Nondistended, Normal bowel sounds Back: Nontender, Normal Inspection Extremities: Nontender, Edema - 2+ BLE. Negative for: Calf Tenderness Skin: Normal color, No rash, No Trauma Neurological: Alert, Cranial nerves II-XII grossly intact, Normal Strength, Normal Sensation, Confused, Disoriented Psychological: Normal affect, Normal Mood Diagnostic/Tx/Re-eval - Rhythm Strip Rhythm Strip: Sinus Rhythm Rate: 70 Ectopy: None - EKG Initial EKG Interpretation: Sinus Rhythm, No Acute Injury Pattern Prior: Unchanged - Medical Decision Making Work-up shows bibasilar pneumonia with a high white blood count at 19. EKG shows sinus rhythm and there is no sign of injury. However she is requiring a high amount of oxygen, after several nebulizer treatments which made her breathe much easier, she is at 91% on a nonrebreather. At one point she was found off of her oxygen and without pulse oximetry, lethargic but with otherwise normal vital signs. I checked her pulse ox and it was very low but she was arousable and said that her breathing was better. She is DNR comfort care only according to several documents that accompany her. Discussed with Dr. Marin, the doctor of record. States he saw the patient this morning and her oxygen levels were low on a nasal cannula, urine culture returned positive and he had started her on Cipro empirically, that was then changed to Zosyn to help cover her pneumonia and urine, to which it was sensitive. He agrees with sending her back as escalating care further would not be done for this patient. ED Disposition - Plan for ED Patient: Disposition: Halfway Facility Diagnosis: Healthcare-associated pneumonia, Acute respiratory failure with hypoxia Instructions: ED Pneumonia Adult Referrals: Wilian Marin MD [Primary Care Provider] - 1-2 Days if not improving
[2018-07-21 13:03] LABS: ALB/GLOB Ratio 0.6 RATIO (0.9-2.4); AST(SGOT) 22 U/L (15-37); Alanine Aminotransfer ALT/SGPT 19 U/L (13-56); Albumin, Serum 2.4 g/dL (3.2-5.0); Alkaline Phosphatase 102 U/L (45-117); Anion Gap 5 (5-15); BUN 41 mg/dL (7-18); BUN/Creat Ratio 26.5 RATIO (10-20); Calcium,Total 8.9 mg/dL (8.5-10.1); Chloride 112 mmol/L (98-107); Creatinine, Serum 1.55 mg/dL (0.55-1.02); EST Glomerular Filtration Rate 34 mL/min (>60); Est Glom Filt Rate - Afr Amer 41 mL/min (>60); Estimated Creatinine Clearance 24.16 ml/min; Globulin 3.8 g/dL (2.2-4.2); Glucose 110 mg/dL (74-106); International Normalized Ratio 1.4; Potassium 3.5 mmol/L (3.5-5.1); Protein, Total 6.2 g/dL (6.4-8.2); Prothrombin Time (Protime)PT. 16.8 SECONDS (11.7-14.9); Sodium Level 145 mmol/L (136-145)
[2018-07-21 13:04] LABS: Partial Thromboplast Time 31.4 Seconds (24.1-36.2)
[2018-07-21] MEDS: Ondansetron 4 MG/2 ML Vial IV (13:05)
[2018-07-21] MEDS: Albuterol 2.5 MG/3 ML VIAL.NEB. INHALATION (13:07)
[2018-07-21] MEDS: Ipratropium/Albuterol Sulfate 3 ML AMPUL.NEB INHALATION (13:07)
[2018-07-21] MEDS: MethylPREDNISolone 125 MG/2 ML Vial IV (13:07)
[2018-07-21] MEDS: 0.9% Normal Saline 1,000 ML 150 ML IV (13:07)
[2018-07-21 13:13] LABS: Absolute Lymphocyte Count 1.46 X10^3/ul (0.83-4.51); Absolute Neutrophil Count 16.8 X10^3/uL (2.0-7.7); Basophil# 0.03 X10^3/uL; Basophil% 0.2 % (0-1); Eosinophil# 0.09 X10^3/uL; Eosinophils% 0.5 % (0-5); Hematocrit 30.9 % (37-47); Hemoglobin 9.5 g/dl (12.0-15.0); Lymphocyte # 1.46 X10^3/ul (4.0); Lymphocyte % 7.6 % (19-41); Mean Corp Hgb Conc 30.7 g/gl (32-36); Mean Corpuscular Volume 84.7 fL (81-99); Mean Platelet Vol. 11.1 fl (6.2-12.0); Monocyte% 3.7 % (0-10); Neutrophil % 87.7 % (47-70); POSITIVE COUNT NO; POSITIVE DIFFERENTIAL NO; POSITIVE MORPHOLOGY NO; Platelet Count 220 K/mm3 (150-450); RBC Distribution Width CV 17.9 % (11.6-14.6); RBC Distribution Width SD 55.6 fl (35.1-43.9); Red Blood Count 3.65 M/mm3 (4.2-5.4); White Blood Count 19.1 K/mm3 (4.4-11.0)
[2018-07-21 13:42] LABS: Mucous, Urine 0 SEEN /hpf (<or=2+); Red Blood Cells-Urine 0 SEEN /hpf (0-5)
--- NOTE | 2018-07-21 13:43 | CPS ---
pt desated to 80% during the aersol treatment. she was then placed back on 100% NRB. sats increased to 92% aersol treatments held for now.
[2018-07-21 13:49] LABS: Color, Urine Yellow (Yellow); Glucose, Dipstick Normal (Normal); Ketone-Dipstick Negative (Negative); Leukocyte Esterase-Dipstick 25 /ul (Negative); Nitrite-Dipstick Negative (Negative); Occult Blood-Urine Negative /ul (Negative); Protein-Dipstick 15 mg/dl (Negative); Urine Bilirubin Dipstick Negative (Negative); Urine Clarity Sl. Cloudy (Clear); Urine Urobilinogen Normal (Normal)
[2018-07-21 13:54] LABS: Squamous Epithelial Cells - UA 0-5 SEEN /hpf (5-10); White Blood Cells 0-5 SEEN /hpf (0-5)
[2018-07-21 13:55] LABS: Bacteria 1+ /hpf (None Seen)
[2018-07-21 14:04] LABS: Lactic Acid 1.6 mmol/L (0.4-2.0)
--- NOTE | 2018-07-21 17:32 | NURSING ---
ETA IS 30 MIN FOR [facility]
[2018-07-21] MEDS: oxyCODONE 5 MG Tablet PO (17:39)
--- NOTE | 2018-07-21 17:42 | ED.RN ---
REPORT CALLED TO NURSE ALONSO [facility] SERVICES[facility]riela.
--- NOTE | 2018-07-21 17:49 | ED.RN ---
EMS CREW IN DEPARTMENT.
== END 2018-07-21 17:58 | disposition skilled nursing facility (03) ==
PROVIDERS: Emergency Provider Emergency Medicine; Family Provider Family Medicine; PCP Family Medicine
DX: J96.01 Acute respiratory failure with hypoxia (principal); J18.9 Pneumonia, unspecified organism; Y95 Nosocomial condition; I48.0 Paroxysmal atrial fibrillation; I10 Essential (primary) hypertension; E11.9 Type 2 diabetes mellitus without complications; I25.10 Atherosclerotic heart disease of native coronary artery without angina pectoris; Z85.3 Personal history of malignant neoplasm of breast; Z85.038 Personal history of other malignant neoplasm of large intestine; Z66 Do not resuscitate
CPT/HCPCS: 71045; 80053; 81001; 83605; 85025; 85610; 85730; 87040; 87086; 93005; 94640; 96361; 96374; 96375; 99285; J7030; A4216; J2405

== ENCOUNTER 2018-07-21 19:23 | Inpatient (IN) | payer MEDICARE, SELFPAY ==
[2018-07-21] VITALS (13 sets, daily range): BP systolic 93–128; BP diastolic 43–80; PULSE 71–84; RESP 14–23; TEMP 36.6–37.1; O2SAT 68–93; BMI 22.6; BMI 23.5; BMI 23.3
--- NOTE | 2018-07-21 20:16 | CM.ED ---
SOCIAL WORK UPDATED BY NURSING, PATIENT D/C'ED TO [facility] AND WAS BROUGHT RIGHT BACK TO ED D/T OXYGEN NEEDS. [facility] UNABLE TO PROVIDE O2 AT HIGH LEVEL NEEDED. INFORMED PATIENT WAS PREVIOUSLY ON HOSPICE AND DAUGHTER REVOKED. CALL TO PATIENT'S DAUGHTER, KHURRAM PARDO TO DISCUSS PLAN OF CARE AND D/C PLANNING. DAUGHTER REPORTS WAS WITH PATIENT ALL MORNING AND ACCOMPANIED HER TO [facility]. DAUGHTER STATES DID CALL HOSPICE LAST EVENING D/T PATIENT'S MEDICAL CONDITION. DAUGHTER STATES PATIENT IS A DNRCC. DAUGHTER REPORTS PATIENT WOULD NOT WANT INTUBATION IF NEEDED. DAUGHTER UNSURE OF PLAN AT THIS TIME. DAUGHTER STATES KNOWS PATIENT WOULD LIKE TO COME HOME AND IS OPEN TO HOSPICE CONSULT TO DISCUSS OPTIONS. NURSING INFORMED THIS WORKER WHILE ON PHONE WITH DAUGHTER THAT DR. HORNE PLANS TO ADMIT PATIENT. DAUGHTER IN AGREEMENT AND STATES WILL NOT BE BACK IN THIS EVENING SHE WAS IN THE ED WITH PATIENT ALL MORNING AND NEEDS REST AND CARE FOR DOGS AT HOME. INFORMED DAUGHTER OCCUPATIONAL THERAPY SPECIALIST/SOLUTION SPEC WILL BE FOLLOWING UP TOMORROW TO DISCUSS D/C PLANNING. PLAN: ADMIT, ANTICIPATE HOSPICE CONSULT.
--- NOTE | 2018-07-21 20:18 | ED.RN ---
social media project manager talked to daughter. Daughter wants to consult hospice in AM. Patient to be DNR no intubation. Social work to follow up in AM. Primary nurse made aware.
[2018-07-21] MEDS: Ipratropium/Albuterol Sulfate 3 ML AMPUL.NEB INHALATION (20:20)
--- NOTE | 2018-07-21 20:35 | ED.RN ---
[facility] [address] [place] ([phone])
--- NOTE | 2018-07-21 20:39 | ED.RN ---
PT TRIGGERS SEPSIS ALERT. DR. HORNE INFORMED OF PT TRIGGERING SEPSIS ALERT. PER DR. HORNE, PT WILL NOT BE RE-WORKED FOR SEPSIS SINCE SHE WAS DISCHARGED FROM OUR FACILITY AT 1758 07/21/2018. NURSING SPECIAL SKILLS OFFICER JOSSY RN NOTIFIED.
--- NOTE | 2018-07-21 20:50 | ED.VISSUMM ---
- ER Visit Summary Date of Service: 07/21/18 Chief Complaint: [Shortness of breath] History of Present Illness: The patient is a 83 F [presents the emergency department with complaint of shortness of breath. Patient was seen earlier in the day and fully evaluated by physician in the emergency department and diagnosed with bilateral pneumonia. Patient was thought to be comfort care and a discussion was had with [facility] and agreed that she would [facility] to the [facility] and be managed there with antibiotics. shelter since patient back as she continues to be hypoxic and they do not have the ability to place patient on 15 L of O2. Patient is a very poor historian. She does complain of a cough but denies any significant shortness of breath. She denies any chest pain. She denies any fevers.] Physical Examination: [HEENT-PERRLA, EOMI. Cranial nerves II through XII grossly intact. TMs clear. Mucous membranes moist. No adenopathy. Cardiovascular-regular rate and rhythm without murmur or ectopy Lungs-breath sounds bilaterally with some coarse rhonchi noted. He has some mild tachypnea. No accessory muscle use or retractions noted. He has some faint expiratory wheezes noted. Abdomen-normoactive bowel sounds, soft, nontender, no rebound or rigidity, no peritoneal signs. Extremities-intact ?4, normal range of motion, normal pulses, atraumatic] Test Results: [No further testing done in the emergency department as she had a complete work-up earlier in the day.] Emergency Department Course and Treatment: [She was given a DuoNeb aerosol. Patient was discussed with patient's primary care physician who at this time recommended admission. We had health social work professor discuss with family their wishes and they would like the patient to be admitted at this time and made DNR and no intubation. They would like a hospice consult.] Patient was started on Zosyn and vancomycin. Treatment Plan: [Admit Disposition: [Admit] Impression: [Bilateral pneumonia-healthcare acquired Hypoxemia ] This note was generated with Scaffold dictation software. It may contain incorrect words, spelling, and punctuation that were not noted in review of the chart prior to signing ED Disposition - Plan for ED Patient: Referrals: Wilian Marin MD [Primary Care Provider] -
--- NOTE | 2018-07-21 20:53 | ED.DCSUM_ITS ---
- ER Visit Summary Date of Service: 07/21/18 Chief Complaint: [Shortness of breath] History of Present Illness: The patient is a 83 F [presents the emergency department with complaint of shortness of breath. Patient was seen earlier in the day and fully evaluated by physician in the emergency department and diagnosed with bilateral pneumonia. Patient was thought to be comfort care and a discussion was had with patient's primary care physician at the [facility] and agreed that she would go back to the [facility] and be managed there with antibiotics. detention since patient back as she continues to be hypoxic and they do not have the ability to place patient on 15 L of O2. Patient is a very poor historian. She does complain of a cough but denies any significant shortness of breath. She denies any chest pain. She denies any fevers.] Physical Examination: [HEENT-PERRLA, EOMI. Cranial nerves II through XII grossly intact. TMs clear. Mucous membranes moist. No adenopathy. Cardiovascular-regular rate and rhythm without murmur or ectopy Lungs-breath sounds bilaterally with some coarse rhonchi noted. He has some mild tachypnea. No accessory muscle use or retractions noted. He has some faint expiratory wheezes noted. Abdomen-normoactive bowel sounds, soft, nontender, no rebound or rigidity, no peritoneal signs. Extremities-intact ?4, normal range of motion, normal pulses, atraumatic] Test Results: [No further testing done in the emergency department as she had a complete work-up earlier in the day.] Emergency Department Course and Treatment: [She was given a DuoNeb aerosol. Pat ient was discussed with patient's primary care physician who at this time recommended admission. We had social work administrator discuss with family their wishes and they would like the patient to be admitted at this time and made DNR and no intubation. They would like a hospice consult.] Patient was started on Zosyn and vancomycin. Treatment Plan: [Admit Disposition: [Admit] Impression: [Bilateral pneumonia-healthcare acquired Hypoxemia ] This note was generated with Rapleaf dictation software. It may contain incorrect words, spelling, and punctuation that were not noted in review of the chart prior to signing ED Disposition - Plan for ED Patient: Referrals: Wilian Marin MD [Primary Care Provider] -
--- NOTE | 2018-07-21 20:58 | HP.PCM_ITS ---
Problem List (1) Paroxysmal atrial fibrillation Status: Chronic (2) HLD (hyperlipidemia) Status: Chronic Qualifiers: Hyperlipidemia type: mixed hyperlipidemia Qualified Code(s): E78.2 - Mixed hyperlipidemia (3) HTN (hypertension) Status: Chronic (4) Diabetes mellitus Status: Chronic (5) Community acquired pneumonia Status: Acute History of Present Illness Date of Admission: 07/21/18 Chief Complaint: hypoxia The patient is a 83 year old F with a significant history of diabetes mellitus; colon cancer; paroxysmal A. fib who presented for the second time at the emergency department because of cough; and shortness of breath and was diagnosed with bibasilar pneumonia. Patient is DNR CC. She was discharged to her long-term on IV antibiotics. However because she required 15 L of oxygen which the long-term could not provide she was sent back to the emergency department. At the emergency department attempt was made to discharge patient to hospice. However hospice wanted patient daughter to reconfirm hospice decision but patient daughter was unreachable at that time. At emergency department patient required oxygen by nonrebreather mask. Past Medical History Past Medical History (Chronic Problems): Chronic Problems (Last Reviewed 09/22/17 @ 15:00 by Harmeet Hernandez MD) Breast cancer (Chronic) Falls frequently (Chronic) Anemia (Chronic) Colon cancer (Chronic) Paroxysmal atrial fibrillation (Chronic) HLD (hyperlipidemia) (Chronic) HTN (hypertension) (Chronic) Diabetes mellitus (Chronic) Hypokalemia (Chronic) Left carotid bruit (Chronic) Atherosclerotic heart disease of [place] coronary artery without angina pectoris (Chronic) CVD (cerebrovascular disease) (Chronic) Medical History: Medical History (Last Reviewed 07/22/18 @ 06:06 by Shai Liu MD) Breast cancer (Chronic) C50.919 Anemia (Chronic) D64.9 Colon cancer (Chronic) C18.9 Paroxysmal atrial fibrillation (Chronic) I48.0 HLD (hyperlipidemia) (Chronic) E78.5 HTN (hypertension) (Chronic) I10 Diabetes mellitus (Chronic) E11.9 Hypokalemia (Chronic) E87.6 Left carotid bruit (Chronic) R09.89 Atherosclerotic heart disease of [place] coronary artery without angina pectoris (Chronic) I25.10 CVD (cerebrovascular disease) (Chronic) I67.9 History of hysterectomy Z98.890, Z90.710 Abnormal electrocardiogram (Inactive) R94.31 Abnormal stress test (Inactive) R94.39 Malignant neoplasm of right colon (Inactive) C18.2 Other intermodal customer service (current) drug therapy (Inactive) Z79.899 Allergies sulfamethoxazole [From Bactrim] Allergy (Verified 07/21/18 19:24) Other trimethoprim [From Bactrim] Allergy (Verified 07/21/18 19:24) Other ibuprofen Adverse Reaction (Verified 07/21/18 19:24) Nausea IVP dye Allergy (Uncoded 08/06/17 12:26) Unknown family member have anaphylaxis so she prefers premed. Home Medications: Ambulatory Orders Medication Instructions Recorded Metformin HCl [Glucophage] 500 mg PO BIDCM 04/13/13 Losartan Potassium [Cozaar] 100 mg PO DAILY 05/11/14 Temazepam [Restoril] 15 mg PO QHS 05/11/14 Aspirin [Aspirin, Baby] 81 mg PO DAILY@0800 01/27/17 Ferrous Sulfate 325 mg PO DAILY 01/27/17 Amiodarone HCl [Cordarone] 200 mg PO QHS 04/06/17 Carvedilol [Coreg] 6.25 mg PO BID 08/06/17 Oxycodone [Oxyir] 5 mg PO Q4H PRN 08/06/17 Amlodipine Besylate 10 mg PO DAILY 07/21/18 Ascorbic Acid 500 mg PO DAILY 07/21/18 Cholecalciferol (Vitamin D3) 4,000 unit PO DAILY 07/21/18 [Thera-D] Cyanocobalamin (Vitamin B-12) 1,000 mcg PO DAILY 07/21/18 [Vitamin B-12] Furosemide [Lasix] 40 mg PO DAILY 07/21/18 Loratadine [Claritin] 10 mg PO DAILY 07/21/18 Multivitamin with Minerals 1 tab PO DAILY 07/21/18 [Multiple Vitamin] Omeprazole 20 mg PO QHS 07/21/18 Oxybutynin Chloride [Ditropan Xl] 10 mg PO DAILY 07/21/18 Piperacil/Tazobactam [Zosyn] 3.375 gm IV Q6H 07/21/18 Polyethylene Glycol 3350 [Miralax] 17 gm PO DAILY 07/21/18 Potassium Chloride [Klor-Con M20] 20 meq PO DAILY 07/21/18 Sennosides/Docusate Sodium 2 tab PO DAILY 07/21/18 [Senna-S Tablet] Thiamine Mononitrate (Vit B1) 200 mg PO DAILY 07/21/18 [Vitamin B-1] Triamcinolone Acetonide [Nasacort] 1 spray NASAL DAILY 07/21/18 Surgical History: Surgical History (Last Reviewed 07/22/18 @ 06:06 by Shai Liu MD) H/O left mastectomy Z98.890, Z90.12 H/O right hemicolectomy Onset Date: ~11/28/16 Z98.890, Z90.49 History of left heart catheterization Onset Date: 05/21/14 Z98.890 non obstructive CAD Surgical History: colectomy, - - Laparoscopic right hemicolectomy Smoking Status: Never smoker - *Family History Paternal Family History: Family History (Last Reviewed 07/22/18 @ 06:06 by Shai Liu MD) Mother CAD (coronary artery disease) Diabetes Brother CAD (coronary artery disease) Cancer Son CAD (coronary artery disease) CVA (cerebral vascular accident) Myocardial infarction Hx of CABG Father Cancer Diabetes Brother Diabetes Hypertension Alzheimers disease Brother CVA (cerebral vascular accident) Brother CAD (coronary artery disease) Cancer Brother CVA (cerebral vascular accident) Brother Diabetes Brother Cancer Diabetes Sister Diabetes Sister CVA (cerebral vascular accident) Sister Diabetes Sister CVA (cerebral vascular accident) Hypertension Diabetes Alzheimers disease Sister Diabetes Rheumatic fever Sister Cancer Hypertension Diabetes Hx of CABG Daughter Diabetes Hypertension Graves disease History Items: No pertinent history Maternal Family History: Family History (Last Reviewed 07/22/18 @ 06:06 by Shai Liu MD) Mother CAD (coronary artery disease) Diabetes Brother CAD (coronary artery disease) Cancer Son CAD (coronary artery disease) CVA (cerebral vascular accident) Myocardial infarction Hx of CABG Father Cancer Diabetes Brother Diabetes Hypertension Alzheimers disease Brother CVA (cerebral vascular accident) Brother CAD (coronary artery disease) Cancer Brother CVA (cerebral vascular accident) Brother Diabetes Brother Cancer Diabetes Sister Diabetes Sister CVA (cerebral vascular accident) Sister Diabetes Sister CVA (cerebral vascular accident) Hypertension Diabetes Alzheimers disease Sister Diabetes Rheumatic fever Sister Cancer Hypertension Diabetes Hx of CABG Daughter Diabetes Hypertension Graves disease History Items: No pertinent history Review of Systems Unable to obtain accurate/complete ROS d/t: Dementia VTE Information - Inpt Only VTE Present on Admission: No VTE Mechan Device Prophylaxis: None VTE Pharm Prophylaxis ordered?: Yes Patient Problems: Active and Suspected Problems (Last Reviewed 09/22/17 @ 15:00 by Harmeet Hernandez MD) Community acquired pneumonia (Acute) - Physical Exam General: Confused, Lethargic HEENT: Atraumatic, PERRLA, EOMI, Normocephalic Neck: Supple, No JVD, Negative Carotid Bruits Lungs: Diminished Cardiovascular: Regular rate, No murmurs Abdomen: Bowel Sounds Present, Soft, Non Tender Extremities: No edema, Capillary Refill Less than 3 Seconds Skin: No rashes, No breakdown Musculoskeletal: No Tenderness to Palpation of Joints or Extremities Neurological: - - Continue to follow commands. Psych/Mental Status: Normal Affect, Appropriate Vital Signs Temp Pulse Resp BP Pulse Ox 98.2 F 76 23 H 122/75 H 92 07/21/18 20:18 07/21/18 20:53 07/21/18 20:53 07/21/18 20:53 07/21/18 20:53 Oxygen Flow Rate (L/min) 15 Oxygen Delivery Method Non-Rebreather Weight: 64.2 kg Body Mass Index (BMI) 23.5 Finger Stick Blood Glucose 160 Assessment/Plan All Active Problems (Last Reviewed 09/22/17 @ 15:00 by Harmeet Hernandez MD) Community acquired pneumonia (Acute) Memory change (Acute) Confusion (Acute) Compression fracture (Acute) Acute blood loss anemia (Resolved) Epistaxis (Resolved) The patient is a 83 year old F with a significant history of diabetes mellitus; colon cancer; paroxysmal A. fib who presented for the second time at the emergency department on the same day after presenting earlier on because of cough; and shortness of breath and was diagnosed with bibasilar pneumonia; but after come to emergency department again because of high oxygen requirement at a long-term could not provide and with family considering hospice. Community acquired pneumonia Patient received vancomycin and Zosyn in the emergency department. We will cont inue vancomycin and Zosyn. Blood culture x2 and urine culture was ordered at first emergency department visit; follow Streptococcus pneumonia antigen and Legionella pneumonia antigen ordered. Placed on nonrebreather mask. Trend CBC and BMP. Hospice consult. CORAL Laboratory work with elevated creatinine and face emergency room visits creatinine was 1.55. Review of old records shows baseline creatinine of less than 1. Gentle normal saline infusion with potassium since her potassium is low normal. DVT prophylaxis Subcutaneous Lovenox Code Visit Inpatient E&M: 52133 Init Hosp L3
--- NOTE | 2018-07-21 21:40 | ED.RN ---
DR. HUYNH REQUESTING FOR PT TO BE SEEN BY HOSPICE. THIS RN CALLED DAUGHTER TWICE WITH NO ANSWER, VOICEMAIL LEFT, TO DETERMINE PATIENT PLAN OF CARE.
--- NOTE | 2018-07-21 21:42 | ED.RN ---
SOCIAL WORK NOT PRESENT AT THIS TIME. STILL TRYING TO CONTACT DAUGHTER.
[2018-07-21] MEDS: Vancomycin IV 1,000 MG/200 ML BAG 200 MG IV (21:56)
--- NOTE | 2018-07-21 22:44 | ED.RN ---
PT DAUGHTER CALLED IN TO ER. UPDATED ON PT ADMISSION AND ROOM NUMBER. WILL DETERMINE PLAN OF CARE TOMORROW WITH CASE MANAGEMENT. DAUGHTER VERBALIZES CONCERN THAT PT HASN'T EATEN. PT GIVEN SODA IN ED REQUESTED BY PT. PT ON WAY TO PCU. THIS RN TRANSFERRED PT CALL TO PROGRESSIVE CARE.
--- NOTE | 2018-07-21 23:27 | CPS ---
PATIENT INCREASED TO .80% VIA NRB MASK. PATIENT INCREASED TO 92%.
--- NOTE | 2018-07-21 23:50 | PCM.RX.CS ---
Consult Pharmacy has been consulted to manage selected antiobiotic: Vancomycin Type of Consult: New start Suspected Infection: Pneumonia Prior Doses of Antibiotics Received/Current Regimen: Medications Vancomycin HCl () 500 mg in 100 mls @ 100 mls/hr IV Q24H CARLOS Discontinued Medications Vancomycin HCl (Vancomycin) 1,000 mg in 200 mls @ 200 mls/hr IV X1 ONE Stop: 07/21/18 21:59 Last Admin: 07/21/18 21:56 Dose: 200 mls/hr Weight used for dosin.2 kg Estimated Creatinine Clearance: 24 Goal Trough: 15-20 mcg/mL Pharmacy Plan for Drug Dosing: Pharmacy Service will continue to monitor and adjust dosing as required. Follow-Up Labs: Trough Vancomycin Labs to be done on [date and time ordered]: 07/23/18 @3671
[2018-07-22] VITALS (32 sets, daily range): BP systolic 99–149; BP diastolic 45–88; PULSE 67–112; RESP 12–26; TEMP 36.6–37.2; O2SAT 16–100
--- NOTE | 2018-07-22 00:01 | CPS ---
PATIENT INCREASED TO 1.00 NRB.
[2018-07-22] MEDS: 0.9% NaCl Midline IV Flush IV (00:47)
[2018-07-22 01:01] LABS: Bedside Glucose 235 mg/dL (70-110)
[2018-07-22] MEDS: Ipratropium/Albuterol Sulfate 3 ML AMPUL.NEB INHALATION ×5 (03:02→22:38)
--- NOTE | 2018-07-22 03:04 | CPS ---
PATIENT FOUND ON ROOM AIR WITH NRB MASK AT BEDSIDE. RT REPLACED NRB MASK AT THE 15 LPM OXYGEN AT 100%. RT NOTIFIED PATIENTS NURSE. NURSE INFOMRED RT THAT SHE HAS BEEN REMOVING MASK. NURSING STATED THAT IS AWARE AND NO NEW ORDERS GIVEN FOR RESPIRATORY. PATIENT WAS 76% ON 1.00 NRB MASK.
--- NOTE | 2018-07-22 04:08 | NURSING ---
daughter Keyonna Kohli stated she will be in during the day to talk to psychiatric social worker supervisor about hospice consult
--- NOTE | 2018-07-22 04:45 | NURSING ---
called Keyonna, pt's daughter, to inform her of change in pt's condition, SpO2 maintaining in low 80s high 70s on 15 L NRB mask. daughter stated she will be up after getting cleaned up and taking care of the dogs.
[2018-07-22 06:21] LABS: Hematocrit 25.9 % (37-47); Hemoglobin 8.3 g/dl (12.0-15.0); Mean Corpuscular Hgb 26.7 pg (27.0-32.0); Mean Corpuscular Volume 83.3 fL (81-99); Mean Platelet Vol. 11.6 fl (6.2-12.0); Platelet Count 170 K/mm3 (150-450); RBC Distribution Width SD 55.1 fl (35.1-43.9); Red Blood Count 3.11 M/mm3 (4.2-5.4); White Blood Count 15.8 K/mm3 (4.4-11.0)
[2018-07-22 06:22] LABS: Scan Indicated on CBC? Y/N NO
[2018-07-22 06:36] LABS: Anion Gap 6 (5-15); BUN 45 mg/dL (7-18); BUN/Creat Ratio 30.2 RATIO (10-20); Calcium,Total 8.1 mg/dL (8.5-10.1); Chloride 117 mmol/L (98-107); Creatinine, Serum 1.49 mg/dL (0.55-1.02); EST Glomerular Filtration Rate 36 mL/min (>60); Est Glom Filt Rate - Afr Amer 43 mL/min (>60); Estimated Creatinine Clearance 20.91 ml/min; Glucose 223 mg/dL (74-106); Potassium 3.7 mmol/L (3.5-5.1); Sodium Level 146 mmol/L (136-145)
--- NOTE | 2018-07-22 06:51 | NURSING ---
pt's daughter, Keyonna, at bedside. daughter wants to speak with the doctor. daughter states they have not decided on hospice, they were only thinking about it.
--- NOTE | 2018-07-22 10:02 | PN_ITS ---
Patient Problems: Active and Suspected Problems (Last Reviewed 07/22/18 @ 06:06 by Shai Liu MD) Community acquired pneumonia (Acute) Subjective: She feels about the same when she came in, with shortness of breath, but no chest pain. I had a discussion with her and the daughter about potentially going back on hospice considering she had been on hospice in September. However the daughter states that over the last 21 months she has not been walking very well and then over the last several weeks she has been improving significantly and she was hoping to get her some rehab and then be able to take her home before [facility] at the [facility]. She is now on a nonrebreather but they both expressed to maintain her DNR status. Vitals/I&O's: Vital Signs Temp Pulse Resp BP Pulse Ox 98.4 F 71 19 H 121/51 H 84 07/22/18 06:00 07/22/18 08:00 07/22/18 08:00 07/22/18 08:00 07/22/18 08:00 Oxygen Flow Rate (L/min) 15 Oxygen Delivery Method Non-Rebreather Weight: 119 lb 7.849 oz Body Mass Index (BMI) 23.3 Finger Stick Blood Glucose 160 Intake and Output for Last 24 Hours 07/20/18 07/21/18 07/22/18 23:59 23:59 23:59 Intake Total 798 / 798 Output Total 500 / 500 Balance 298 / 298 General: Alert, Confused HEENT: Atraumatic, EOMI, Normocephalic Oral: Dry Mucosa Neck: Supple, No JVD Lungs: Normal air movement, No rhonchi, No wheeze, Diminished Cardiovascular: Regular rate, Regular Rhythm, Normal S1, Normal S2, No murmurs Abdomen: Soft, Non Tender, Non-Distended, No Hepato-splenomegaly Extremities: No edema, Capillary Refill Less than 3 Seconds Skin: No rashes, - - Bilateral heel decubitus ulcers with eschars on both heels Neurological: Neuro grossly intact, Sensory exam intact to light touch and pain Psych/Mental Status: Flat Affect Microbiology Past 72 Hours 07/22/18 03:00 Urine, Clean Catch Legionella Antigen - Final 07/22/18 03:00 Urine, Clean Catch Streptococcus pneumoniae Antigen (M - Final Laboratory Results 07/22/18 00:40: POC Glucose 235 H 07/22/18 05:45: Sodium 146 H, Potassium 3.7, Chloride 117 H, Carbon Dioxide 23.0, Anion Gap 6, BUN 45 H, Creatinine 1.49 H, Estim Creat Clear Calc 20.91, Est GFR (MDRD) Af Amer 43 L, Est GFR (MDRD) Non-Af 36 L, BUN/Creatinine Ratio 30.2 H, Glucose 223 H, Calcium 8.1 L 07/22/18 05:45: WBC 15.8 H, RBC 3.11 L, Hgb 8.3 L, Hct 25.9 L, MCV 83.3, MCH 26.7 L, MCHC 32.0, RDW 18.0 H, RDW Differential 55.1 H, Plt Count 170, MPV 11.6 Current Medications Acetaminophen (Tylenol) 650 mg PO Q6H PRN PRN PRN Reason: Mild pain 1-3/Temp > 100.7 F Albuterol Sulfate (Ventolin Aerosols) 2.5 mg INHALATION Q2H PRN PRN PRN Reason: SHORTNESS OF BREATH Albuterol/Ipratropium (Duoneb) 3 ml INHALATION Q4H.RT CARLOS Last Admin: 07/22/18 06:45 Dose: Not Given Dextrose (D50w Syringe) 0 gm IV X1 PRN; Protocol PRN Reason: Hypoglycemia Enoxaparin Sodium (Lovenox) 30 mg SC DAILY@1000 CARLOS Glucagon () 1 mg IM .X1 PRN PRN Reason: Hypoglycemia Piperacillin Sod/Tazobactam (Sod 3.375 gm/ Sodium Chloride) 50 mls @ 12.5 mls/hr IV Q8 CARLOS Last Admin: 07/22/18 05:00 Dose: 12.5 mls/hr Vancomycin IV Pharmacy to Dose (1,000 ea/ Sodium Chloride) 500 mls @ 250 mls/hr IV PRN PRN; Protocol Vancomycin HCl () 500 mg in 100 mls @ 100 mls/hr IV Q24H [facility] Ondansetron HCl (Zofran) 4 mg IV Q8H PRN PRN PRN Reason: NAUSEA/VOMITING Sodium Chloride () 10 - 20 ml IV UD PRN PRN Reason: Midline Flush Last Admin: 07/22/18 00:47 Dose: 20 ml Medical Necessity - Tobacco Use Smoking Status: Never smoker Assessment/Plan All Active Problems (Last Reviewed 07/22/18 @ 06:06 by Shai Liu MD) Community acquired pneumonia (Acute) Memory change (Acute) Confusion (Acute) Compression fracture (Acute) Acute blood loss anemia (Resolved) Epistaxis (Resolved) 1. Sepsis secondary to community-acquired pneumonia with likely gram-positive organism/acute hypoxic respiratory distress -Based on her respiratory rate and her white count of 15.8 + the previous chest x-ray earlier in the day showing bibasilar pneumonia, she qualifies as sepsis -Her sepsis has resolved with appropriate therapy -She is currently on BiPAP to improve her oxygenation -I had a 25-minute discussion with the daughter about proceeding with hospice and she would like to give her antibiotics in the BiPAP to see if we can recover any function and then she would like to take her home because her mom stated that she would, if she had to , she would like to at home. -Pulse ox on admission was 69% on room air -Per the daughter she was somewhat ambulatory in the [facility] and I cannot find any records of previous antibiotics therefore her MDRO risk is fairly low, will obtain a MRSA PCR and if that is negative I will discontinue her vancomycin and can likely transition to Augmentin and azithromycin or just Levaquin 2. Coronary artery disease/HLD/HTN/paroxysmal A. fib -Per the daughter a lot of her past medical history is been very stable -Given her sepsis we will hold off on her amiodarone, Norvasc, Coreg, Lasix -Can restart when her respiratory status is more improved 3. DM2 -We will hold her home metformin, her blood sugars on admission were in the 200s -We will give her Levemir 10 units nightly as well as a sliding scale insulin 4. Decubitus ulcers -She has acute his ulcers on her heels, and will continue her pain medication as she will be on BiPAP 5. Iron deficiency anemia -Stable, she was 9.5 yesterday and is now 8.3 which is consistent with IV fluid dilution -Continue with vitamin B12 and her iron pills 6. GERD -Stable -Continue with PPI DVT: Lovenox
--- NOTE | 2018-07-22 10:23 | CASEMGMT ---
RADHA spoke with patient's daughter in the room per her request. She said she wants the Pneumonia treated. She said they are not ready for Hospice as patient has people she still wants to see and they want to have some good times together. RADHA asked her if her concern with Hospice is that they won't be able to do those things. She said she was told patient cannot have a bi-pap with Hospice or pain meds. RADHA clarified with physician and RN this is not exactly what was conveyed to her. RADHA explained to patient's daughter that she can have bi-pap while on Hospice and IV antibiotics are determined on a case by case basis. She wants to see if her mom recovers from the Pneumonia. She wants to take her home and not back to the snf. She is going to talk with patient's child care worker with [facility] to get aides in the home. RADHA told her that it is unlikely she is going to be able to get aides / as the staffing is just not available. She said they had the staffing before. RADHA told her she will have to talk with her child care worker. The plan at this time is to see how patient recovers from her Pneumonia and if she does not do well Hospice may need to be re-visited. RADHA called [facility] and patient's Restaurant Managing Partner is Fatou Joyner. RADHA spoke with Fatou and let her know current situation. She said that she thought patient was on Hospice. RADHA told her the daughter revoked Hospice July 16. She was not aware. She said she is not going to be able to get many aides in the home. She will call patient's daughter. RADHA called [facility] to see how patient was doing there. Apparently patient's daughter revoked Hospice so patient could get therapy so she could then go home. She said patient was not moving about while at the SNF. RADHA also spoke with Hospice regarding patient and let them know current situation. Anny HIGGINS MSW
[2018-07-22] MEDS: Enoxaparin 30 MG/0.3 ML Syringe SC (11:33)
[2018-07-22 11:40] LABS: Bedside Glucose 158 mg/dL (70-110)
--- NOTE | 2018-07-22 14:41 | CHAPLAIN ---
Type of Pastoral Visit _x__ Initial Visit ___ Follow-up Visit ___ On-call Visit ___ General Patient Visit ___ Spiritual Assessment ___ Family Conference ___ Bereavement ___ Rapid Response ___ Code Blue ___ Other (describe below) Pastoral Care Referral From _x__ Patient ___ Family _x__ Nurse ___ Physician ___ Air Support Control Officer ___ Book Repairer ___ Other (describe below) Sacrament/Intervention _x__ Active listening ___ Anointing ___ Christian ___ Bereavement ___ Communion ___ Akila exploration ___ ___ Life review _x__ Prayer ___ Reconciliation ___ Sacrament of Sick _x__ Supportive presence ___ Wedding ___ Other (describe below) Pastoral Comments patient is on bi-pap machine but when she sees this manufacturing test technician at doorway she motions with hand to enter room; pt says her daughter just left the room; pt is welcoming of spiritual care; pt speaks through bi-pap; pt says that her concern is for her children and to get along; pt says that she has no other worries; pt says she came from a very large family and is one of only two remaining siblings left; pt says she has three children; PT team enters room to assess pt; prayer offered for pt and then this manufacturing test technician departs room
[2018-07-22 19:25] LABS: Bedside Glucose 150 mg/dL (70-110)
[2018-07-22] MEDS: Vancomycin IV 500 MG/100 ML BAG 100 MG IV (20:53)
[2018-07-22 21:06] LABS: Bedside Glucose 156 mg/dL (70-110)
[2018-07-22] MEDS: Insulin Lispro 100 UNIT/ML INSULN.PEN SQ (21:33)
[2018-07-23] VITALS (24 sets, daily range): BP systolic 104–153; BP diastolic 48–88; PULSE 66–82; RESP 12–30; TEMP 36.9–37.6; O2SAT 87–100
[2018-07-23] MEDS: Ipratropium/Albuterol Sulfate 3 ML AMPUL.NEB INHALATION ×6 (03:45→23:55)
[2018-07-23 05:46] LABS: Absolute Lymphocyte Count 0.94 X10^3/ul (0.83-4.51); Absolute Neutrophil Count 17.9 X10^3/uL (2.0-7.7); Basophil# 0.01 X10^3/uL; Basophil% 0.1 % (0-1); Hematocrit 26.5 % (37-47); Hemoglobin 8.2 g/dl (12.0-15.0); Lymphocyte # 0.94 X10^3/ul (4.0); Lymphocyte % 4.8 % (19-41); Mean Corp Hgb Conc 30.9 g/gl (32-36); Mean Corpuscular Hgb 25.9 pg (27.0-32.0); Mean Corpuscular Volume 83.6 fL (81-99); Mean Platelet Vol. 11.6 fl (6.2-12.0); Monocyte# 0.58 X10^3/uL; Neutrophil # 17.87 X10^3/uL (2.7-7.7); Neutrophil % 91.6 % (47-70); Platelet Count 210 K/mm3 (150-450); RBC Distribution Width CV 17.7 % (11.6-14.6); RBC Distribution Width SD 52.2 fl (35.1-43.9); Red Blood Count 3.17 M/mm3 (4.2-5.4); White Blood Count 19.5 K/mm3 (4.4-11.0)
[2018-07-23 05:48] LABS: POSITIVE COUNT NO; POSITIVE DIFFERENTIAL NO; POSITIVE MORPHOLOGY NO
[2018-07-23 05:54] LABS: Anion Gap 7 (5-15); BUN 47 mg/dL (7-18); BUN/Creat Ratio 32.9 RATIO (10-20); Calcium,Total 8.8 mg/dL (8.5-10.1); Chloride 119 mmol/L (98-107); Creatinine, Serum 1.43 mg/dL (0.55-1.02); EST Glomerular Filtration Rate 37 mL/min (>60); Est Glom Filt Rate - Afr Amer 45 mL/min (>60); Estimated Creatinine Clearance 21.79 ml/min; Glucose 157 mg/dL (74-106); Potassium 3.5 mmol/L (3.5-5.1); Sodium Level 151 mmol/L (136-145)
[2018-07-23] MEDS: Insulin Lispro 100 UNIT/ML INSULN.PEN SQ (06:44)
[2018-07-23 06:51] LABS: Bedside Glucose 150 mg/dL (70-110)
--- NOTE | 2018-07-23 08:19 | PCM.PN.HOSP ---
Patient Problems: Active and Suspected Problems (Last Reviewed 07/22/18 @ 06:06 by Shai Liu MD) Community acquired pneumonia (Acute) Subjective: Sleepy but appears to be more comfortable today difficult to communicate with the BiPAP on will await daughter to further discuss plan of care Vitals/I&O's: Vital Signs Temp Pulse Resp BP Pulse Ox 98.7 F 66 21 H 112/51 L 96 07/23/18 05:00 07/23/18 05:00 07/23/18 05:00 07/23/18 05:00 07/23/18 05:00 Oxygen Flow Rate (L/min) 15 Oxygen Delivery Method Bi-pap Weight: 119 lb 7.849 oz Body Mass Index (BMI) 23.3 Finger Stick Blood Glucose 160 Intake and Output for Last 24 Hours 07/21/18 07/22/18 07/23/18 23:59 23:59 23:59 Intake Total 1455 / 1455 201 / 201 Output Total 500 / 500 300 / 300 Balance 955 / 955 -99 / -99 General: Alert, Confused HEENT: Atraumatic, EOMI, Normocephalic Oral: Dry Mucosa Neck: Supple, No JVD Lungs: Normal air movement, No rhonchi, No wheeze, Diminished Cardiovascular: Regular rate, Regular Rhythm, Normal S1, Normal S2, No murmurs Abdomen: Soft, Non Tender, Non-Distended, No Hepato-splenomegaly Extremities: No edema, Capillary Refill Less than 3 Seconds Skin: No rashes, - - Bilateral heel decubitus ulcers with eschars on both heels Neurological: Neuro grossly intact, Sensory exam intact to light touch and pain Psych/Mental Status: Flat Affect Microbiology Past 72 Hours 07/22/18 03:00 Urine, Clean Catch Legionella Antigen - Final 07/22/18 03:00 Urine, Clean Catch Streptococcus pneumoniae Antigen (M - Final Laboratory Results 07/22/18 11:19: POC Glucose 158 H 07/22/18 16:53: POC Glucose 150 H 07/22/18 21:00: POC Glucose 156 H 07/23/18 05:15: WBC 19.5 H, RBC 3.17 L, Hgb 8.2 L, Hct 26.5 L, MCV 83.6, MCH 25.9 L, MCHC 30.9 L, RDW 17.7 H, RDW Differential 52.2 H, Plt Count 210, MPV 11.6, Immature Gran % (Auto) 0.500, Neut % (Auto) 91.6 H, Lymph % (Auto) 4.8 L, [place] % (Auto) 3.0, Eos % (Auto) 0.0, Baso % (Auto) 0.1, Absolute Neuts (auto) 17.9 H, Absolute Lymphs (auto) 0.94, Total Counted Not Reportable 07/23/18 05:15: Sodium 151 H, Potassium 3.5, Chloride 119 H, Carbon Dioxide 25.0, Anion Gap 7, BUN 47 H, Creatinine 1.43 H, Estim Creat Clear Calc 21.79, Est GFR (MDRD) Af Amer 45 L, Est GFR (MDRD) Non-Af 37 L, BUN/Creatinine Ratio 32.9 H, Glucose 157 H, Calcium 8.8 07/23/18 06:43: POC Glucose 150 H Current Medications Acetaminophen (Tylenol) 650 mg PO Q6H PRN PRN PRN Reason: Mild pain 1-3/Temp > 100.7 F Albuterol Sulfate (Ventolin Aerosols) 2.5 mg INHALATION Q2H PRN PRN PRN Reason: SHORTNESS OF BREATH Albuterol/Ipratropium (Duoneb) 3 ml INHALATION Q4H.RT [facility] Last Admin: 07/23/18 06:49 Dose: 3 ml Aspirin (Aspirin, Baby) 81 mg PO DAILY@0800 [facility] Cyanocobalamin (Vitamin B12) 1,000 mcg PO DAILY [facility] Last Admin: 07/22/18 18:09 Dose: Not Given Dextrose (D50w Syringe) 0 gm IV X1 PRN; Protocol PRN Reason: Hypoglycemia Enoxaparin Sodium (Lovenox) 30 mg SC DAILY@1000 [facility] Last Admin: 07/22/18 11:33 Dose: 30 mg Ferrous Sulfate (Ferrous Sulfate) 325 mg PO DAILYCM [facility] Last Admin: 07/22/18 18:10 Dose: Not Given Glucagon () 1 mg IM .X1 PRN PRN Reason: Hypoglycemia Piperacillin Sod/Tazobactam (Sod 3.375 gm/ Sodium Chloride) 50 mls @ 12.5 mls/hr IV Q8 [facility] Last Admin: 07/23/18 05:52 Dose: 12.5 mls/hr Vancomycin IV Pharmacy to Dose (1,000 ea/ Sodium Chloride) 500 mls @ 250 mls/hr IV PRN PRN; Protocol Vancomycin HCl () 500 mg in 100 mls @ 100 mls/hr IV Q24H [facility] Last Admin: 07/22/18 20:53 Dose: 100 mls/hr Insulin Human Lispro (Humalog Kwikpen (Bkc)) 0 unit SQ ACHS [facility]; Protocol Last Admin: 07/23/18 06:44 Dose: 1 units Ondansetron HCl (Zofran) 4 mg IV Q8H PRN PRN PRN Reason: NAUSEA/VOMITING Oxycodone HCl (Oxyir) 5 mg PO Q4H PRN PRN Reason: PAIN Pantoprazole Sodium (Protonix) 20 mg PO QHS [facility] Last Admin: 07/22/18 20:53 Dose: Not Given Sodium Chloride () 10 - 20 ml IV UD PRN PRN Reason: Midline Flush Last Admin: 07/22/18 00:47 Dose: 20 ml Medical Necessity - Tobacco Use Smoking Status: Never smoker Assessment/Plan All Active Problems (Last Reviewed 07/22/18 @ 06:06 by Shai Liu MD) Community acquired pneumonia (Acute) Memory change (Acute) Confusion (Acute) Compression fracture (Acute) Acute blood loss anemia (Resolved) Epistaxis (Resolved) 1. Sepsis secondary to community-acquired pneumonia with likely gram-positive organism/acute hypoxic respiratory distress -Based on her respiratory rate and her white count of 15.8 + the previous chest x-ray earlier in the day showing bibasilar pneumonia, she qualifies as sepsis -Her sepsis has resolved with appropriate therapy, though her white count has increased from 15.8 this 19.5 -She is currently on BiPAP to improve her oxygenation -I had a 25-minute discussion with the daughter on admission about proceeding with hospice and she would like to give her antibiotics in the BiPAP to see if we can recover any function and then she would like to take her home because her mom stated that she would, if she had to , she would like to at home. -Pulse ox on admission was 69% on room air -Per the daughter she was somewhat ambulatory in the detention and I cannot find any records of previous antibiotics therefore her MDRO risk is fairly low, will obtain a MRSA PCR and if that is negative I will discontinue her vancomycin and can likely transition to Augmentin and azithromycin or just Levaquin 2. Coronary artery disease/HLD/HTN/paroxysmal A. fib -Per the daughter a lot of her past medical history is been very stable -Given her sepsis we will hold off on her amiodarone, Norvasc, Coreg, Lasix -Can restart when her respiratory status is more improved 3. DM2 -We will hold her home metformin, her blood sugars on admission were in the 200s -We will give her a sliding scale insulin 4. Decubitus ulcers -She has acute ulcers on her heels, and will continue her pain medication as she will be on BiPAP 5. Iron deficiency anemia -Stable, she was 9.5 yesterday and is now 8.3 which is consistent with IV fluid dilution -Continue with vitamin B12 and her iron pills 6. GERD -Stable -Continue with PPI DVT: Roxix Code Visit Inpatient E&M: 32024 Subs Hosp L2
--- NOTE | 2018-07-23 08:24 | PN_ITS ---
Patient Problems: Active and Suspected Problems (Last Reviewed 07/22/18 @ 06:06 by Shai Liu MD) Community acquired pneumonia (Acute) Subjective: Sleepy but appears to be more comfortable today difficult to communicate with the BiPAP on will await daughter to further discuss plan of care Vitals/I&O's: Vital Signs Temp Pulse Resp BP Pulse Ox 98.7 F 66 21 H 112/51 L 96 07/23/18 05:00 07/23/18 05:00 07/23/18 05:00 07/23/18 05:00 07/23/18 05:00 Oxygen Flow Rate (L/min) 15 Oxygen Delivery Method Bi-pap Weight: 119 lb 7.849 oz Body Mass Index (BMI) 23.3 Finger Stick Blood Glucose 160 Intake and Output for Last 24 Hours 07/21/18 07/22/18 07/23/18 23:59 23:59 23:59 Intake Total 1455 / 1455 201 / 201 Output Total 500 / 500 300 / 300 Balance 955 / 955 -99 / -99 General: Alert, Confused HEENT: Atraumatic, EOMI, Normocephalic Oral: Dry Mucosa Neck: Supple, No JVD Lungs: Normal air movement, No rhonchi, No wheeze, Diminished Cardiovascular: Regular rate, Regular Rhythm, Normal S1, Normal S2, No murmurs Abdomen: Soft, Non Tender, Non-Distended, No Hepato-splenomegaly Extremities: No edema, Capillary Refill Less than 3 Seconds Skin: No rashes, - - Bilateral heel decubitus ulcers with eschars on both heels Neurological: Neuro grossly intact, Sensory exam intact to light touch and pain Psych/Mental Status: Flat Affect Microbiology Past 72 Hours 07/22/18 03:00 Urine, Clean Catch Legionella Antigen - Final 07/22/18 03:00 Urine, Clean Catch Streptococcus pneumoniae Antigen (M - Final Laboratory Results 07/22/18 11:19: POC Glucose 158 H 07/22/18 16:53: POC Glucose 150 H 07/22/18 21:00: POC Glucose 156 H 07/23/18 05:15: WBC 19.5 H, RBC 3.17 L, Hgb 8.2 L, Hct 26.5 L, MCV 83.6, MCH 25.9 L, MCHC 30.9 L, RDW 17.7 H, RDW Differential 52.2 H, Plt Count 210, MPV 11.6, Immature Gran % (Auto) 0.500, Neut % (Auto) 91.6 H, Lymph % (Auto) 4.8 L, [place] % (Auto) 3.0, Eos % (Auto) 0.0, Baso % (Auto) 0.1, Absolute Neuts (auto) 17.9 H, Absolute Lymphs (auto) 0.94, Total Counted Not Reportable 07/23/18 05:15: Sodium 151 H, Potassium 3.5, Chloride 119 H, Carbon Dioxide 25.0, Anion Gap 7, BUN 47 H, Creatinine 1.43 H, Estim Creat Clear Calc 21.79, Est GFR (MDRD) Af Amer 45 L, Est GFR (MDRD) Non-Af 37 L, BUN/Creatinine Ratio 32.9 H, Glucose 157 H, Calcium 8.8 07/23/18 06:43: POC Glucose 150 H Current Medications Acetaminophen (Tylenol) 650 mg PO Q6H PRN PRN PRN Reason: Mild pain 1-3/Temp > 100.7 F Albuterol Sulfate (Ventolin Aerosols) 2.5 mg INHALATION Q2H PRN PRN PRN Reason: SHORTNESS OF BREATH Albuterol/Ipratropium (Duoneb) 3 ml INHALATION Q4H.RT [facility] Last Admin: 07/23/18 06:49 Dose: 3 ml Aspirin (Aspirin, Baby) 81 mg PO DAILY@0800 [facility] Cyanocobalamin (Vitamin B12) 1,000 mcg PO DAILY [facility] Last Admin: 07/22/18 18:09 Dose: Not Given Dextrose (D50w Syringe) 0 gm IV X1 PRN; Protocol PRN Reason: Hypoglycemia Enoxaparin Sodium (Lovenox) 30 mg SC DAILY@1000 [facility] Last Admin: 07/22/18 11:33 Dose: 30 mg Ferrous Sulfate (Ferrous Sulfate) 325 mg PO DAILYCM [facility] Last Admin: 07/22/18 18:10 Dose: Not Given Glucagon () 1 mg IM .X1 PRN PRN Reason: Hypoglycemia Piperacillin Sod/Tazobactam (Sod 3.375 gm/ Sodium Chloride) 50 mls @ 12.5 mls/hr IV Q8 [facility] Last Admin: 07/23/18 05:52 Dose: 12.5 mls/hr Vancomycin IV Pharmacy to Dose (1,000 ea/ Sodium Chloride) 500 mls @ 250 mls/hr IV PRN PRN; Protocol Vancomycin HCl () 500 mg in 100 mls @ 100 mls/hr IV Q24H [facility] Last Admin: 07/22/18 20:53 Dose: 100 mls/hr Insulin Human Lispro (Humalog Kwikpen (Bkc)) 0 unit SQ ACHS [facility]; Protocol Last Admin: 07/23/18 06:44 Dose: 1 units Ondansetron HCl (Zofran) 4 mg IV Q8H PRN PRN PRN Reason: NAUSEA/VOMITING Oxycodone HCl (Oxyir) 5 mg PO Q4H PRN PRN Reason: PAIN Pantoprazole Sodium (Protonix) 20 mg PO QHS [facility] Last Admin: 07/22/18 20:53 Dose: Not Given Sodium Chloride () 10 - 20 ml IV UD PRN PRN Reason: Midline Flush Last Admin: 07/22/18 00:47 Dose: 20 ml Medical Necessity - Tobacco Use Smoking Status: Never smoker Assessment/Plan All Active Problems (Last Reviewed 07/22/18 @ 06:06 by Shai Liu MD) Community acquired pneumonia (Acute) Memory change (Acute) Confusion (Acute) Compression fracture (Acute) Acute blood loss anemia (Resolved) Epistaxis (Resolved) 1. Sepsis secondary to community-acquired pneumonia with likely gram-positive organism/acute hypoxic respiratory distress -Based on her respiratory rate and her white count of 15.8 + the previous chest x-ray earlier in the day showing bibasilar pneumonia, she qualifies as sepsis -Her sepsis has resolved with appropriate therapy, though her white count has increased from 15.8 this 19.5 -She is currently on BiPAP to improve her oxygenation -I had a 25-minute discussion with the daughter on admission about proceeding with hospice and she would like to give her antibiotics in the BiPAP to see if we can recover any function and then she would like to take her home because her mom stated that she would, if she had to , she would like to at home. -Pulse ox on admission was 69% on room air -Per the daughter she was somewhat ambulatory in the shelter and I cannot find any records of previous antibiotics therefore her MDRO risk is fairly low, will obtain a MRSA PCR and if that is negative I will discontinue her vancomycin and can likely transition to Augmentin and azithromycin or just Levaquin 2. Coronary artery disease/HLD/HTN/paroxysmal A. fib -Per the daughter a lot of her past medical history is been very stable -Given her sepsis we will hold off on her amiodarone, Norvasc, Coreg, Lasix -Can restart when her respiratory status is more improved 3. DM2 -We will hold her home metformin, her blood sugars on admission were in the 200s -We will give her a sliding scale insulin 4. Decubitus ulcers -She has acute ulcers on her heels, and will continue her pain medication as she will be on BiPAP 5. Iron deficiency anemia -Stable, she was 9.5 yesterday and is now 8.3 which is consistent with IV fluid dilution -Continue with vitamin B12 and her iron pills 6. GERD -Stable -Continue with PPI DVT: Roxix Code Visit Inpatient E&M: 18437 Subs Hosp L2
[2018-07-23] MEDS: Enoxaparin 30 MG/0.3 ML Syringe SC (10:59)
[2018-07-23 11:11] LABS: Bedside Glucose 126 mg/dL (70-110)
[2018-07-23] MEDS: Aspirin 81 MG TAB.CHEW PO (11:52)
[2018-07-23] MEDS: Ferrous Sulfate 325 MG Tablet PO (11:52)
[2018-07-23] MEDS: Cyanocobalamin 500 MCG Tablet 1000 MCG PO (11:52)
[2018-07-23 16:26] LABS: Bedside Glucose 140 mg/dL (70-110)
[2018-07-23] MEDS: Vancomycin IV 500 MG/100 ML BAG 100 MG IV (22:13)
[2018-07-23] MEDS: Pantoprazole Sodium 20 MG Tablet PO (22:13)
[2018-07-23 22:26] LABS: Bedside Glucose 149 mg/dL (70-110)
[2018-07-23 22:38] LABS: Vancomycin, Trough Level 8.4 ug/mL (5.0-15.0)
--- NOTE | 2018-07-23 23:34 | PCM.RX.CS ---
Consult Pharmacy has been consulted to manage selected antiobiotic: Vancomycin Type of Consult: Follow-up Suspected Infection: Pneumonia Prior Doses of Antibiotics Received/Current Regimen: Medications Vancomycin HCl (Vancomycin) 1,000 mg in 200 mls @ 200 mls/hr IV Q24H [facility] Discontinued Medications Vancomycin HCl () 500 mg in 100 mls @ 100 mls/hr IV Q24H [facility] Last Admin: 07/23/18 22:13 Dose: 100 mls/hr Labs: Sodium 151 mmol/L (136-145) H 07/23/18 05:15 Potassium 3.5 mmol/L (3.5-5.1) 07/23/18 05:15 Chloride 119 mmol/L (98-107) H 07/23/18 05:15 Carbon Dioxide 25.0 mmol/L (21.0-32.0) 07/23/18 05:15 Anion Gap 7 (5-15) 07/23/18 05:15 BUN 47 mg/dL (7-18) H 07/23/18 05:15 Creatinine 1.43 mg/dL (0.55-1.02) H 07/23/18 05:15 Est GFR (MDRD) Af Amer 45 mL/min (>60) L 07/23/18 05:15 Est GFR (MDRD) Non-Af 37 mL/min (>60) L 07/23/18 05:15 BUN/Creatinine Ratio 32.9 RATIO (10-20) H 07/23/18 05:15 Glucose 157 mg/dL (74-106) H 07/23/18 05:15 Vancomycin Trough 8.4 ug/mL (5.0-15.0) 07/23/18 22:02 Microbiology: Microbiology 07/22/18 11:50 Swab (Method) Nasal Screen MRSA/MSSA - Final 07/22/18 03:00 Urine, Clean Catch Legionella Antigen - Final 07/22/18 03:00 Urine, Clean Catch Streptococcus pneumoniae Antigen (M - Final Weight used for dosin.2 kg Estimated Creatinine Clearance: 21.8 Goal Trough: 15-20 mcg/mL Pharmacy Plan for Drug Dosing: Trough level drawn 07/23/18 was 8.4, below target range of 15-20. Increased dose to 1000mg q24h and will re-draw trough before 3rd dose at new dose. Pharmacy Service will continue to monitor and adjust dosing as required. Follow-Up Labs: Trough Vancomycin Labs to be done on [date and time ordered]: 07/26/18 @[id number]
[2018-07-24] VITALS (26 sets, daily range): BP systolic 126–156; BP diastolic 45–77; PULSE 65–94; RESP 12–30; TEMP 36.3–37.5; O2SAT 92–99
[2018-07-24 06:28] LABS: Absolute Lymphocyte Count 0.96 X10^3/ul (0.83-4.51); Absolute Neutrophil Count 13.4 X10^3/uL (2.0-7.7); Basophil# 0.01 X10^3/uL; Basophil% 0.1 % (0-1); Eosinophil# 0.01 X10^3/uL; Eosinophils% 0.1 % (0-5); Hematocrit 26.2 % (37-47); Hemoglobin 8.1 g/dl (12.0-15.0); Lymphocyte # 0.96 X10^3/ul (4.0); Lymphocyte % 6.5 % (19-41); Mean Corp Hgb Conc 30.9 g/gl (32-36); Mean Corpuscular Hgb 25.8 pg (27.0-32.0); Mean Corpuscular Volume 83.4 fL (81-99); Mean Platelet Vol. 11.4 fl (6.2-12.0); Monocyte# 0.32 X10^3/uL; Monocyte% 2.2 % (0-10); Neutrophil # 13.41 X10^3/uL (2.7-7.7); Neutrophil % 90.5 % (47-70); POSITIVE COUNT NO; POSITIVE DIFFERENTIAL NO; POSITIVE MORPHOLOGY NO; Platelet Count 211 K/mm3 (150-450); RBC Distribution Width CV 17.8 % (11.6-14.6); RBC Distribution Width SD 52.4 fl (35.1-43.9); Red Blood Count 3.14 M/mm3 (4.2-5.4); White Blood Count 14.8 K/mm3 (4.4-11.0)
[2018-07-24 06:41] LABS: Bedside Glucose 124 mg/dL (70-110)
[2018-07-24 06:44] LABS: Anion Gap 4 (5-15); BUN 36 mg/dL (7-18); BUN/Creat Ratio 29.5 RATIO (10-20); Calcium,Total 8.3 mg/dL (8.5-10.1); Chloride 118 mmol/L (98-107); Creatinine, Serum 1.22 mg/dL (0.55-1.02); EST Glomerular Filtration Rate 45 mL/min (>60); Est Glom Filt Rate - Afr Amer 54 mL/min (>60); Estimated Creatinine Clearance 25.54 ml/min; Glucose 120 mg/dL (74-106); Potassium 2.7 mmol/L (3.5-5.1); Sodium Level 149 mmol/L (136-145)
[2018-07-24] MEDS: Ipratropium/Albuterol Sulfate 3 ML AMPUL.NEB INHALATION ×5 (06:58→22:52)
[2018-07-24 07:05] LABS: Magnesium 2.2 mg/dL (1.6-2.6)
--- NOTE | 2018-07-24 08:11 | CPS ---
pt placed on NRB for breakfast
[2018-07-24] MEDS: Potassium Chloride 10mEq/100mL 10 MEQ/100 ML IV.SOLN. 100 MEQ IV BOLUS ×4 (08:29→12:12)
[2018-07-24] MEDS: 0.9% NaCl Midline IV Flush IV (08:51)
[2018-07-24] MEDS: Ondansetron 4 MG/2 ML Vial IV (08:51)
--- NOTE | 2018-07-24 09:42 | PCM.PN.HOSP ---
Patient Problems: Active and Suspected Problems (Last Reviewed 07/22/18 @ 06:06 by Shai Liu MD) Community acquired pneumonia (Acute) Subjective: More alert today however during her medication past, she threw up and then dropped her oxygen sats down into the 80s necessitating being put back on her BiPAP. Prior to putting on her BiPAP she dropped down to the 60s during her conversation about whether or not she would like to be on hospice. At first she said she would like to go home on BiPAP however when I explained to her about hospice and not getting any treatment she refused. She understood what that meant and therefore I cannot proceed with hospice and the plan would be long-term versus home on BiPAP if the daughter is okay with that. Vitals/I&O's: Vital Signs Temp Pulse Resp BP Pulse Ox 97.5 F L 73 29 H 126/45 H 95 07/24/18 04:02 07/24/18 06:58 07/24/18 06:58 07/24/18 04:02 07/24/18 06:58 Oxygen Flow Rate (L/min) 15 Oxygen Delivery Method Non-Rebreather Weight: 119 lb 7.849 oz Body Mass Index (BMI) 23.3 Finger Stick Blood Glucose 160 Intake and Output for Last 24 Hours 07/22/18 07/23/18 07/24/18 23:59 23:59 23:59 Intake Total 1455 / 1455 858 / 858 75.7 / 75.7 Output Total 500 / 500 1075 / 1075 Balance 955 / 955 -217 / -217 75.7 / 75.7 General: Alert, oriented x3 HEENT: Atraumatic, EOMI, Normocephalic Oral: Dry Mucosa Neck: Supple, No JVD Lungs: Normal air movement, No rhonchi, No wheeze, Diminished greater on the right than the left Cardiovascular: Regular rate, Regular Rhythm, Normal S1, Normal S2, No murmurs Abdomen: Soft, Non Tender, Non-Distended, No Hepato-splenomegaly Extremities: No edema, Capillary Refill Less than 3 Seconds Skin: No rashes, - - Bilateral heel decubitus ulcers with eschars on both heels, and upper buttock Neurological: Neuro grossly intact, Sensory exam intact to light touch and pain Psych/Mental Status: Flat Affect Microbiology Past 72 Hours 07/22/18 11:50 Swab (Method) Nasal Screen MRSA/MSSA - Final 07/22/18 03:00 Urine, Clean Catch Legionella Antigen - Final 07/22/18 03:00 Urine, Clean Catch Streptococcus pneumoniae Antigen (M - Final Laboratory Results 07/23/18 10:57: POC Glucose 126 H 07/23/18 16:05: POC Glucose 140 H 07/23/18 22:02: Vancomycin Trough 8.4 07/23/18 22:08: POC Glucose 149 H 07/24/18 05:45: WBC 14.8 H, RBC 3.14 L, Hgb 8.1 L, Hct 26.2 L, MCV 83.4, MCH 25.8 L, MCHC 30.9 L, RDW 17.8 H, RDW Differential 52.4 H, Plt Count 211, MPV 11.4, Immature Gran % (Auto) 0.600, Neut % (Auto) 90.5 H, Lymph % (Auto) 6.5 L, [place] % (Auto) 2.2, Eos % (Auto) 0.1, Baso % (Auto) 0.1, Absolute Neuts (auto) 13.4 H, Absolute Lymphs (auto) 0.96, Total Counted Not Reportable 07/24/18 05:45: Sodium 149 H, Potassium 2.7 L*, Chloride 118 H, Carbon Dioxide 27.0, Anion Gap 4 L, BUN 36 H, Creatinine 1.22 H, Estim Creat Clear Calc 25.54, Est GFR (MDRD) Af Amer 54 L, Est GFR (MDRD) Non-Af 45 L, BUN/Creatinine Ratio 29.5 H, Glucose 120 H, Calcium 8.3 L 07/24/18 05:45: Magnesium 2.2 07/24/18 06:35: POC Glucose 124 H Current Medications Acetaminophen (Tylenol) 650 mg PO Q6H PRN PRN PRN Reason: Mild pain 1-3/Temp > 100.7 F Albuterol Sulfate (Ventolin Aerosols) 2.5 mg INHALATION Q2H PRN PRN PRN Reason: SHORTNESS OF BREATH Albuterol/Ipratropium (Duoneb) 3 ml INHALATION Q4H.RT CARLOS Last Admin: 07/24/18 06:58 Dose: 3 ml Aspirin (Aspirin, Baby) 81 mg PO DAILY@0800 [facility] Last Admin: 07/24/18 09:35 Dose: Not Given Cyanocobalamin (Vitamin B12) 1,000 mcg PO DAILY [facility] Last Admin: 07/24/18 09:37 Dose: Not Given Dextrose (D50w Syringe) 0 gm IV X1 PRN; Protocol PRN Reason: Hypoglycemia Enoxaparin Sodium (Lovenox) 30 mg SC DAILY@1000 [facility] Last Admin: 07/23/18 10:59 Dose: 30 mg Ferrous Sulfate (Ferrous Sulfate) 325 mg PO DAILYCM [facility] Last Admin: 07/24/18 09:36 Dose: Not Given Glucagon () 1 mg IM .X1 PRN PRN Reason: Hypoglycemia Piperacillin Sod/Tazobactam (Sod 3.375 gm/ Sodium Chloride) 50 mls @ 12.5 mls/hr IV Q8 [facility] Last Admin: 07/24/18 04:59 Dose: 12.5 mls/hr Vancomycin IV Pharmacy to Dose (1,000 ea/ Sodium Chloride) 500 mls @ 250 mls/hr IV PRN PRN; Protocol Vancomycin HCl (Vancomycin) 1,000 mg in 200 mls @ 200 mls/hr IV Q24H [facility] Potassium Chloride () 10 meq in 100 mls @ 100 mls/hr IV BOLUS Q1H [facility] Stop: 07/24/18 10:59 Last Admin: 07/24/18 09:40 Dose: 100 mls/hr Insulin Human Lispro (Humalog Kwikpen (Bkc)) 0 unit SQ ACHS [facility]; Protocol Last Admin: 07/24/18 06:38 Dose: Not Given Ondansetron HCl (Zofran) 4 mg IV Q8H PRN PRN PRN Reason: NAUSEA/VOMITING Last Admin: 07/24/18 08:51 Dose: 4 mg Oxycodone HCl (Oxyir) 5 mg PO Q4H PRN PRN Reason: PAIN Pantoprazole Sodium (Protonix) 20 mg PO QHS [facility] Last Admin: 07/23/18 22:13 Dose: 20 mg Sodium Chloride () 10 - 20 ml IV UD PRN PRN Reason: Midline Flush Last Admin: 07/24/18 08:51 Dose: 10 ml Medical Necessity - Tobacco Use Smoking Status: Never smoker Assessment/Plan All Active Problems (Last Reviewed 07/22/18 @ 06:06 by Shai Liu MD) Community acquired pneumonia (Acute) Memory change (Acute) Confusion (Acute) Compression fracture (Acute) Acute blood loss anemia (Resolved) Epistaxis (Resolved) 1. Sepsis secondary to community-acquired pneumonia with likely gram-positive organism present on admission/acute hypoxic respiratory failure secondary to pneumonia and now possible aspiration -Based on her respiratory rate and her white count of 15.8 + the previous chest x-ray earlier in the day showing bibasilar pneumonia, she qualifies as sepsis -Her sepsis has resolved with appropriate therapy, white count this morning is 14.8, her MRSA screen came back negative therefore will discontinue vancomycin -She is currently on BiPAP to improve her oxygenation -I had a 25-minute discussion with the daughter on admission about proceeding with hospice and she would like to give her antibiotics in the BiPAP to see if we can recover any function and then she would like to take her home because her mom stated that she would, if she had to , she would like to at home. However I did discuss the issue with Mrs. Rios, and she would not like to proceed with hospice at this time therefore will look at nursing homes versus taking the patient home depending on what the daughter's wishes are. Jennifer would like to go home if possible -Pulse ox on admission was 69% on room air -Continue with Zosyn for now, will discontinue the vancomycin given the negative MRSA screen 2. Coronary artery disease/HLD/HTN/paroxysmal A. fib -Per the daughter a lot of her past medical history is been very stable -Given her sepsis we will hold off on her amiodarone, Norvasc, Coreg, Lasix -Can restart when her respiratory status is more improved 3. DM2 -We will hold her home metformin, her blood sugars on admission were in the 200s -We will give her a sliding scale insulin 4. Decubitus ulcers?unstageable -She has acute ulcers on her heels, and will continue her pain medication as she will be on BiPAP 5. Iron deficiency anemia -Stable, she was 9.5 on admission and is now 8.1 which is consistent with IV fluid dilution -Continue with vitamin B12 and her iron pills 6. GERD -Stable -Continue with PPI 7. Hypokalemia -Yesterday her potassium was 3.5 today is 2.7 -She is being replaced and will recheck her BMP in the morning DVT: Roxix Code Visit Inpatient E&M: 64571 Subs Hosp L2
--- NOTE | 2018-07-24 09:48 | PN_ITS ---
Patient Problems: Active and Suspected Problems (Last Reviewed 07/22/18 @ 06:06 by Shai Liu MD) Community acquired pneumonia (Acute) Subjective: More alert today however during her medication past, she threw up and then dropped her oxygen sats down into the 80s necessitating being put back on her BiPAP. Prior to putting on her BiPAP she dropped down to the 60s during her conversation about whether or not she would like to be on hospice. At first she said she would like to go home on BiPAP however when I explained to her about hospice and not getting any treatment she refused. She understood what that meant and therefore I cannot proceed with hospice and the plan would be halfway versus home on BiPAP if the daughter is okay with that. Vitals/I&O's: Vital Signs Temp Pulse Resp BP Pulse Ox 97.5 F L 73 29 H 126/45 H 95 07/24/18 04:02 07/24/18 06:58 07/24/18 06:58 07/24/18 04:02 07/24/18 06:58 Oxygen Flow Rate (L/min) 15 Oxygen Delivery Method Non-Rebreather Weight: 119 lb 7.849 oz Body Mass Index (BMI) 23.3 Finger Stick Blood Glucose 160 Intake and Output for Last 24 Hours 07/22/18 07/23/18 07/24/18 23:59 23:59 23:59 Intake Total 1455 / 1455 858 / 858 75.7 / 75.7 Output Total 500 / 500 1075 / 1075 Balance 955 / 955 -217 / -217 75.7 / 75.7 General: Alert, oriented x3 HEENT: Atraumatic, EOMI, Normocephalic Oral: Dry Mucosa Neck: Supple, No JVD Lungs: Normal air movement, No rhonchi, No wheeze, Diminished greater on the right than the left Cardiovascular: Regular rate, Regular Rhythm, Normal S1, Normal S2, No murmurs Abdomen: Soft, Non Tender, Non-Distended, No Hepato-splenomegaly Extremities: No edema, Capillary Refill Less than 3 Seconds Skin: No rashes, - - Bilateral heel decubitus ulcers with eschars on both heels, and upper buttock Neurological: Neuro grossly intact, Sensory exam intact to light touch and pain Psych/Mental Status: Flat Affect Microbiology Past 72 Hours 07/22/18 11:50 Swab (Method) Nasal Screen MRSA/MSSA - Final 07/22/18 03:00 Urine, Clean Catch Legionella Antigen - Final 07/22/18 03:00 Urine, Clean Catch Streptococcus pneumoniae Antigen (M - Final Laboratory Results 07/23/18 10:57: POC Glucose 126 H 07/23/18 16:05: POC Glucose 140 H 07/23/18 22:02: Vancomycin Trough 8.4 07/23/18 22:08: POC Glucose 149 H 07/24/18 05:45: WBC 14.8 H, RBC 3.14 L, Hgb 8.1 L, Hct 26.2 L, MCV 83.4, MCH 25.8 L, MCHC 30.9 L, RDW 17.8 H, RDW Differential 52.4 H, Plt Count 211, MPV 11.4, Immature Gran % (Auto) 0.600, Neut % (Auto) 90.5 H, Lymph % (Auto) 6.5 L, [place] % (Auto) 2.2, Eos % (Auto) 0.1, Baso % (Auto) 0.1, Absolute Neuts (auto) 13.4 H, Absolute Lymphs (auto) 0.96, Total Counted Not Reportable 07/24/18 05:45: Sodium 149 H, Potassium 2.7 L*, Chloride 118 H, Carbon Dioxide 27.0, Anion Gap 4 L, BUN 36 H, Creatinine 1.22 H, Estim Creat Clear Calc 25.54, Est GFR (MDRD) Af Amer 54 L, Est GFR (MDRD) Non-Af 45 L, BUN/Creatinine Ratio 29.5 H, Glucose 120 H, Calcium 8.3 L 07/24/18 05:45: Magnesium 2.2 07/24/18 06:35: POC Glucose 124 H Current Medications Acetaminophen (Tylenol) 650 mg PO Q6H PRN PRN PRN Reason: Mild pain 1-3/Temp > 100.7 F Albuterol Sulfate (Ventolin Aerosols) 2.5 mg INHALATION Q2H PRN PRN PRN Reason: SHORTNESS OF BREATH Albuterol/Ipratropium (Duoneb) 3 ml INHALATION Q4H.RT CARLOS Last Admin: 07/24/18 06:58 Dose: 3 ml Aspirin (Aspirin, Baby) 81 mg PO DAILY@0800 [facility] Last Admin: 07/24/18 09:35 Dose: Not Given Cyanocobalamin (Vitamin B12) 1,000 mcg PO DAILY [facility] Last Admin: 07/24/18 09:37 Dose: Not Given Dextrose (D50w Syringe) 0 gm IV X1 PRN; Protocol PRN Reason: Hypoglycemia Enoxaparin Sodium (Lovenox) 30 mg SC DAILY@1000 [facility] Last Admin: 07/23/18 10:59 Dose: 30 mg Ferrous Sulfate (Ferrous Sulfate) 325 mg PO DAILYCM [facility] Last Admin: 07/24/18 09:36 Dose: Not Given Glucagon () 1 mg IM .X1 PRN PRN Reason: Hypoglycemia Piperacillin Sod/Tazobactam (Sod 3.375 gm/ Sodium Chloride) 50 mls @ 12.5 mls/hr IV Q8 [facility] Last Admin: 07/24/18 04:59 Dose: 12.5 mls/hr Vancomycin IV Pharmacy to Dose (1,000 ea/ Sodium Chloride) 500 mls @ 250 mls/hr IV PRN PRN; Protocol Vancomycin HCl (Vancomycin) 1,000 mg in 200 mls @ 200 mls/hr IV Q24H [facility] Potassium Chloride () 10 meq in 100 mls @ 100 mls/hr IV BOLUS Q1H [facility] Stop: 07/24/18 10:59 Last Admin: 07/24/18 09:40 Dose: 100 mls/hr Insulin Human Lispro (Humalog Kwikpen (Bkc)) 0 unit SQ ACHS [facility]; Protocol Last Admin: 07/24/18 06:38 Dose: Not Given Ondansetron HCl (Zofran) 4 mg IV Q8H PRN PRN PRN Reason: NAUSEA/VOMITING Last Admin: 07/24/18 08:51 Dose: 4 mg Oxycodone HCl (Oxyir) 5 mg PO Q4H PRN PRN Reason: PAIN Pantoprazole Sodium (Protonix) 20 mg PO QHS [facility] Last Admin: 07/23/18 22:13 Dose: 20 mg Sodium Chloride () 10 - 20 ml IV UD PRN PRN Reason: Midline Flush Last Admin: 07/24/18 08:51 Dose: 10 ml Medical Necessity - Tobacco Use Smoking Status: Never smoker Assessment/Plan All Active Problems (Last Reviewed 07/22/18 @ 06:06 by Shai Liu MD) Community acquired pneumonia (Acute) Memory change (Acute) Confusion (Acute) Compression fracture (Acute) Acute blood loss anemia (Resolved) Epistaxis (Resolved) 1. Sepsis secondary to community-acquired pneumonia with likely gram-positive organism present on admission/acute hypoxic respiratory failure secondary to pneumonia and now possible aspiration -Based on her respiratory rate and her white count of 15.8 + the previous chest x-ray earlier in the day showing bibasilar pneumonia, she qualifies as sepsis -Her sepsis has resolved with appropriate therapy, white count this morning is 14.8, her MRSA screen came back negative therefore will discontinue vancomycin -She is currently on BiPAP to improve her oxygenation -I had a 25-minute discussion with the daughter on admission about proceeding with hospice and she would like to give her antibiotics in the BiPAP to see if we can recover any function and then she would like to take her home because her mom stated that she would, if she had to , she would like to at home. However I did discuss the issue with Mrs. Rios, and she would not like to proceed with hospice at this time therefore will look at nursing homes versus taking the patient home depending on what the daughter's wishes are. Jennifer would like to go home if possible -Pulse ox on admission was 69% on room air -Continue with Zosyn for now, will discontinue the vancomycin given the negative MRSA screen 2. Coronary artery disease/HLD/HTN/paroxysmal A. fib -Per the daughter a lot of her past medical history is been very stable -Given her sepsis we will hold off on her amiodarone, Norvasc, Coreg, Lasix -Can restart when her respiratory status is more improved 3. DM2 -We will hold her home metformin, her blood sugars on admission were in the 200s -We will give her a sliding scale insulin 4. Decubitus ulcers?unstageable -She has acute ulcers on her heels, and will continue her pain medication as she will be on BiPAP 5. Iron deficiency anemia -Stable, she was 9.5 on admission and is now 8.1 which is consistent with IV fluid dilution -Continue with vitamin B12 and her iron pills 6. GERD -Stable -Continue with PPI 7. Hypokalemia -Yesterday her potassium was 3.5 today is 2.7 -She is being replaced and will recheck her BMP in the morning DVT: Roxix Code Visit Inpatient E&M: 70784 Subs Hosp L2
[2018-07-24] MEDS: Enoxaparin 30 MG/0.3 ML Syringe SC (10:19)
[2018-07-24 11:40] LABS: Bedside Glucose 137 mg/dL (70-110)
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
[2018-07-24 16:11] LABS: Bedside Glucose 118 mg/dL (70-110)
[2018-07-24 22:11] LABS: Bedside Glucose 98 mg/dL (70-110)
[2018-07-25] VITALS (19 sets, daily range): BP systolic 115–156; BP diastolic 49–69; PULSE 71–86; RESP 12–36; TEMP 36.8–37.4; O2SAT 90–99
--- NOTE | 2018-07-25 01:27 | RAD_ITS ---
STUDY: X-RAY CHEST REASON FOR EXAM: Female, 83 years old. Shortness of breath. TECHNIQUE: AP upright portable view. COMPARISON: 07/21/2018. FINDINGS: The right [employer] shunt catheter is unchanged. Persistent pulmonary edema and/or pneumonia in both lungs. Pulmonary hyperinflation and flattening of the hemidiaphragms due to COPD. No obvious pleural fluid. No new findings or changes. RAD/Chest 1 View (Portable) IMPRESSION: COPD with persistent pulmonary edema and/or pneumonia in both lungs. Electronically Signed: Dimitri Douglass MD at 9:18 EDT , Service support ,
[2018-07-25 02:06] LABS: Allen Test POS; Base Excess -3 mmol/L (-2 to +2); Bicarbonate 21.8 mmol/L (22-26); Blood Gas Specimen Type ART; EPAP 8; FI02 70; IPAP 14; PO2 57 mmHG (75-100); RR 12; SITE R Radial; SO2 90 % (95-99); Time Given 154; Total Carbon Dioxide 23 mmol/L; pCO2 33.4 mmHg (35-45); pH 7.42 (7.35-7.45)
[2018-07-25] MEDS: Furosemide 40 MG/4 ML Vial IV (02:10)
[2018-07-25] MEDS: 0.9% NaCl Midline IV Flush IV ×3 (02:10→05:22)
--- NOTE | 2018-07-25 02:17 | PCM.PN.BLA ---
Progress Note Nurse reports that patient with tachypnea with respiratory rate in high 20s and oxygenation saturation 90 on bipap; and with diffuse rales. Family reports right arm swelling. Upon examination patient is alert and oriented an on bipap. Lung sound with diffuse rales. swelling of dorsal right arm. ABG showed respiratory alkalosis with hypoxia. Respiratory therapist will increase EPAP. Patient on home Lasix 40mg po daily. Will give lasix 40mg IV x one. CXR reviewed by me showed improving bilateral opacities compared to CXR on 07/21/17. Supplement potassium especially as her potassium level was low on 07/24/2018. BMP is pending in am. Discussed with nurse to elevate right arm with pillow.
[2018-07-25] MEDS: Ondansetron 4 MG/2 ML Vial IV (02:47)
--- NOTE | 2018-07-25 03:00 | CPS ---
Blood gas results shown to . EPAP increased to 10 on BiPAP per doctors order.
[2018-07-25] MEDS: Ipratropium/Albuterol Sulfate 3 ML AMPUL.NEB INHALATION ×5 (03:20→19:15)
--- NOTE | 2018-07-25 03:40 | CPS ---
DuoDerm applied for soreness of skin from being on BiPAP mask for extended time.
[2018-07-25 05:41] LABS: Absolute Lymphocyte Count 1.08 X10^3/ul (0.83-4.51); Absolute Neutrophil Count 18.4 X10^3/uL (2.0-7.7); Basophil# 0.01 X10^3/uL; Eosinophil# 0.18 X10^3/uL; Eosinophils% 0.9 % (0-5); Hematocrit 29.6 % (37-47); Hemoglobin 9.2 g/dl (12.0-15.0); Lymphocyte # 1.08 X10^3/ul (4.0); Lymphocyte % 5.4 % (19-41); Mean Corp Hgb Conc 31.1 g/gl (32-36); Mean Corpuscular Hgb 25.9 pg (27.0-32.0); Mean Corpuscular Volume 83.4 fL (81-99); Mean Platelet Vol. 11.2 fl (6.2-12.0); Monocyte# 0.32 X10^3/uL; Monocyte% 1.6 % (0-10); Neutrophil # 18.37 X10^3/uL (2.7-7.7); Neutrophil % 91.4 % (47-70); Platelet Count 259 K/mm3 (150-450); RBC Distribution Width CV 17.9 % (11.6-14.6); RBC Distribution Width SD 53.8 fl (35.1-43.9); Red Blood Count 3.55 M/mm3 (4.2-5.4); White Blood Count 20.1 K/mm3 (4.4-11.0)
[2018-07-25 05:48] LABS: POSITIVE COUNT NO; POSITIVE DIFFERENTIAL NO; POSITIVE MORPHOLOGY NO
[2018-07-25 05:50] LABS: Anion Gap 7 (5-15); BUN 30 mg/dL (7-18); BUN/Creat Ratio 25.9 RATIO (10-20); Calcium,Total 8.6 mg/dL (8.5-10.1); Chloride 118 mmol/L (98-107); Creatinine, Serum 1.16 mg/dL (0.55-1.02); EST Glomerular Filtration Rate 48 mL/min (>60); Est Glom Filt Rate - Afr Amer 58 mL/min (>60); Estimated Creatinine Clearance 26.86 ml/min; Glucose 109 mg/dL (74-106); Potassium 3.2 mmol/L (3.5-5.1); Sodium Level 151 mmol/L (136-145)
[2018-07-25 06:25] LABS: Bedside Glucose 109 mg/dL (70-110)
--- NOTE | 2018-07-25 07:51 | PCM.PN.HOSP ---
Patient Problems: Active and Suspected Problems (Last Reviewed 07/22/18 @ 06:06 by Shai Liu MD) Community acquired pneumonia (Acute) Subjective: Still stable on the BiPAP, she did have some respiratory distress last night necessitating Lasix. Still unable to wean off the BiPAP Vitals/I&O's: Vital Signs Temp Pulse Resp BP Pulse Ox 99.1 F 79 24 H 156/59 H 96 07/25/18 04:20 07/25/18 07:00 07/25/18 04:20 07/25/18 04:20 07/25/18 04:20 Oxygen Flow Rate (L/min) 15 Oxygen Delivery Method Bi-pap Weight: 119 lb 7.849 oz Body Mass Index (BMI) 23.3 Finger Stick Blood Glucose 160 Intake and Output for Last 24 Hours 07/23/18 07/24/18 07/25/18 23:59 23:59 23:59 Intake Total 858 / 858 1148.7 / 1148.7 408 / 408 Output Total 1075 / 1075 700 / 700 1000 / 1000 Balance -217 / -217 448.7 / 448.7 -592 / -592 General: Alert, oriented x3 HEENT: Atraumatic, EOMI, Normocephalic Oral: Dry Mucosa Neck: Supple, No JVD Lungs: Normal air movement, No rhonchi, slight wheeze on the right, Diminished greater on the right than the left Cardiovascular: Regular rate, Regular Rhythm, Normal S1, Normal S2, No murmurs Abdomen: Soft, Non Tender, Non-Distended, No Hepato-splenomegaly Extremities: No edema, Capillary Refill Less than 3 Seconds Skin: No rashes, - - Bilateral heel decubitus ulcers with eschars on both heels, and upper buttock Neurological: Neuro grossly intact, Sensory exam intact to light touch and pain Psych/Mental Status: Flat Affect Microbiology Past 72 Hours 07/22/18 11:50 Swab (Method) Nasal Screen MRSA/MSSA - Final 07/22/18 03:00 Urine, Clean Catch Legionella Antigen - Final 07/22/18 03:00 Urine, Clean Catch Streptococcus pneumoniae Antigen (M - Final Laboratory Results 07/24/18 11:36: POC Glucose 137 H 07/24/18 16:02: POC Glucose 118 H 07/24/18 21:46: POC Glucose 98 05/19/19 01:59: Specimen Type ART, Sample Site R Radial, pH 7.42, Bicarbonate Actual 21.8 L, POC Total CO2 23, Base Excess -3 L, O2 Saturation 90 L, O2 % 70, ABG pCO2 33.4 L, ABG pO2 57 L, Noman Test POS, Respiration Rate 12, O2 Delivery Device Bi / C PAP, EPAP 8, IPAP 14, Blood Gas Notified Whom DIONNE TURNER, Blood Gas Notified Time 154 07/25/18 05:05: WBC 20.1 H, RBC 3.55 L, Hgb 9.2 L, Hct 29.6 L, MCV 83.4, MCH 25.9 L, MCHC 31.1 L, RDW 17.9 H, RDW Differential 53.8 H, Plt Count 259, MPV 11.2, Immature Gran % (Auto) 0.700, Neut % (Auto) 91.4 H, Lymph % (Auto) 5.4 L, [place] % (Auto) 1.6, Eos % (Auto) 0.9, Baso % (Auto) 0.0, Absolute Neuts (auto) 18.4 H, Absolute Lymphs (auto) 1.08, Total Counted Not Reportable 07/25/18 05:05: Sodium 151 H, Potassium 3.2 L, Chloride 118 H, Carbon Dioxide 26.0, Anion Gap 7, BUN 30 H, Creatinine 1.16 H, Estim Creat Clear Calc 26.86, Est GFR (MDRD) Af Amer 58 L, Est GFR (MDRD) Non-Af 48 L, BUN/Creatinine Ratio 25.9 H, Glucose 109 H, Calcium 8.6 07/25/18 06:18: POC Glucose 109 Current Medications Acetaminophen (Tylenol) 650 mg PO Q6H PRN PRN PRN Reason: Mild pain 1-3/Temp > 100.7 F Albuterol Sulfate (Ventolin Aerosols) 2.5 mg INHALATION Q2H PRN PRN PRN Reason: SHORTNESS OF BREATH Albuterol/Ipratropium (Duoneb) 3 ml INHALATION Q4H.RT [facility] Last Admin: 07/25/18 07:00 Dose: 3 ml Aspirin (Aspirin, Baby) 81 mg PO DAILY@0800 [facility] Last Admin: 07/24/18 09:35 Dose: Not Given Cyanocobalamin (Vitamin B12) 1,000 mcg PO DAILY [facility] Last Admin: 07/24/18 09:37 Dose: Not Given Dextrose (D50w Syringe) 0 gm IV X1 PRN; Protocol PRN Reason: Hypoglycemia Enoxaparin Sodium (Lovenox) 30 mg SC DAILY@1000 [facility] Last Admin: 07/24/18 10:19 Dose: 30 mg Ferrous Sulfate (Ferrous Sulfate) 325 mg PO DAILYCM [facility] Last Admin: 07/24/18 09:36 Dose: Not Given Glucagon () 1 mg IM .X1 PRN PRN Reason: Hypoglycemia Piperacillin Sod/Tazobactam (Sod 3.375 gm/ Sodium Chloride) 50 mls @ 12.5 mls/hr IV Q8 [facility] Last Admin: 07/25/18 06:12 Dose: 12.5 mls/hr Potassium Chloride () 10 meq in 100 mls @ 100 mls/hr IV BOLUS Q1H [facility] Stop: 07/25/18 11:59 Insulin Human Lispro (Humalog Kwikpen (Bkc)) 0 unit SQ ACHS [facility]; Protocol Last Admin: 07/25/18 06:18 Dose: Not Given Ondansetron HCl (Zofran) 4 mg IV Q8H PRN PRN PRN Reason: NAUSEA/VOMITING Last Admin: 07/25/18 02:47 Dose: 4 mg Oxycodone HCl (Oxyir) 5 mg PO Q4H PRN PRN Reason: PAIN Pantoprazole Sodium (Protonix) 20 mg PO QHS [facility] Last Admin: 07/24/18 20:09 Dose: Not Given Sodium Chloride () 10 - 20 ml IV UD PRN PRN Reason: Midline Flush Last Admin: 07/25/18 05:22 Dose: 10 ml Medical Necessity - Tobacco Use Smoking Status: Never smoker Assessment/Plan All Active Problems (Last Reviewed 07/22/18 @ 06:06 by Shai Liu MD) Community acquired pneumonia (Acute) Memory change (Acute) Confusion (Acute) Compression fracture (Acute) Acute blood loss anemia (Resolved) Epistaxis (Resolved) 1. Sepsis secondary to community-acquired pneumonia with likely gram-positive organism present on admission/acute hypoxic respiratory failure secondary to pneumonia and now possible aspiration -Based on her respiratory rate and her white count of 15.8 + the previous chest x-ray earlier in the day showing bibasilar pneumonia, she qualifies as sepsis -Her sepsis has resolved with appropriate therapy, however white count this morning is 20.1, will monitor for now -She is currently on BiPAP to improve her oxygenation, given the wheeze and her history of smoking we will add prednisone daily -I had a 25-minute discussion with the daughter on admission about proceeding with hospice and she would like to give her antibiotics in the BiPAP to see if we can recover any function and then she would like to take her home because her mom stated that she would, if she had to , she would like to at home. However I did discuss the issue with Mrs. Rios, and she would not like to proceed with hospice at this time therefore will look at nursing homes versus taking the patient home depending on what the daughter's wishes are. Jennifer would like to go home if possible. Unfortunately the daughter was diagnosed with ALS which she does not want her mother or her family to know, and that she cannot take care of her. She would prefer for her mother went to inpatient hospice, but she is can have an extensive conversation between herself and her mother today to figure out plan of care going forward -Pulse ox on admission was 69% on room air -Continue with Zosyn for now, will discontinue the vancomycin given the negative MRSA screen 2. Coronary artery disease/HLD/HTN/paroxysmal A. fib -Per the daughter a lot of her past medical history is been very stable -Given her sepsis we will hold off on her amiodarone, Norvasc, Coreg, Lasix -Can restart when her respiratory status is more improved 3. DM2 -We will hold her home metformin, her blood sugars on admission were in the 200s -We will give her a sliding scale insulin 4. Decubitus ulcers?unstageable -She has acute ulcers on her heels, and will continue her pain medication as she will be on BiPAP 5. Iron deficiency anemia -Stable, she was 9.5 on admission and is now 8.1 which is consistent with IV fluid dilution -Continue with vitamin B12 and her iron pills 6. GERD -Stable -Continue with PPI 7. Hypokalemia -Potassium is 3.2 today with replacement yesterday, will follow up with mag and phosphorus -She is being replaced and will recheck her BMP in the morning DVT: Lovenox Code Visit Inpatient E&M: 66765 Subs Hosp L2
--- NOTE | 2018-07-25 07:55 | PN_ITS ---
Patient Problems: Active and Suspected Problems (Last Reviewed 07/22/18 @ 06:06 by Shai Liu MD) Community acquired pneumonia (Acute) Subjective: Still stable on the BiPAP, she did have some respiratory distress last night necessitating Lasix. Still unable to wean off the BiPAP Vitals/I&O's: Vital Signs Temp Pulse Resp BP Pulse Ox 99.1 F 79 24 H 156/59 H 96 07/25/18 04:20 07/25/18 07:00 07/25/18 04:20 07/25/18 04:20 07/25/18 04:20 Oxygen Flow Rate (L/min) 15 Oxygen Delivery Method Bi-pap Weight: 119 lb 7.849 oz Body Mass Index (BMI) 23.3 Finger Stick Blood Glucose 160 Intake and Output for Last 24 Hours 07/23/18 07/24/18 07/25/18 23:59 23:59 23:59 Intake Total 858 / 858 1148.7 / 1148.7 408 / 408 Output Total 1075 / 1075 700 / 700 1000 / 1000 Balance -217 / -217 448.7 / 448.7 -592 / -592 General: Alert, oriented x3 HEENT: Atraumatic, EOMI, Normocephalic Oral: Dry Mucosa Neck: Supple, No JVD Lungs: Normal air movement, No rhonchi, slight wheeze on the right, Diminished greater on the right than the left Cardiovascular: Regular rate, Regular Rhythm, Normal S1, Normal S2, No murmurs Abdomen: Soft, Non Tender, Non-Distended, No Hepato-splenomegaly Extremities: No edema, Capillary Refill Less than 3 Seconds Skin: No rashes, - - Bilateral heel decubitus ulcers with eschars on both heels, and upper buttock Neurological: Neuro grossly intact, Sensory exam intact to light touch and pain Psych/Mental Status: Flat Affect Microbiology Past 72 Hours 07/22/18 11:50 Swab (Method) Nasal Screen MRSA/MSSA - Final 07/22/18 03:00 Urine, Clean Catch Legionella Antigen - Final 07/22/18 03:00 Urine, Clean Catch Streptococcus pneumoniae Antigen (M - Final Laboratory Results 07/24/18 11:36: POC Glucose 137 H 07/24/18 16:02: POC Glucose 118 H 07/24/18 21:46: POC Glucose 98 05/19/19 01:59: Specimen Type ART, Sample Site R Radial, pH 7.42, Bicarbonate Actual 21.8 L, POC Total CO2 23, Base Excess -3 L, O2 Saturation 90 L, O2 % 70, ABG pCO2 33.4 L, ABG pO2 57 L, Noman Test POS, Respiration Rate 12, O2 Delivery Device Bi / C PAP, EPAP 8, IPAP 14, Blood Gas Notified Whom DIONNE TURNER, Blood Gas Notified Time 154 07/25/18 05:05: WBC 20.1 H, RBC 3.55 L, Hgb 9.2 L, Hct 29.6 L, MCV 83.4, MCH 25.9 L, MCHC 31.1 L, RDW 17.9 H, RDW Differential 53.8 H, Plt Count 259, MPV 11.2, Immature Gran % (Auto) 0.700, Neut % (Auto) 91.4 H, Lymph % (Auto) 5.4 L, [place] % (Auto) 1.6, Eos % (Auto) 0.9, Baso % (Auto) 0.0, Absolute Neuts (auto) 18.4 H, Absolute Lymphs (auto) 1.08, Total Counted Not Reportable 07/25/18 05:05: Sodium 151 H, Potassium 3.2 L, Chloride 118 H, Carbon Dioxide 26.0, Anion Gap 7, BUN 30 H, Creatinine 1.16 H, Estim Creat Clear Calc 26.86, Est GFR (MDRD) Af Amer 58 L, Est GFR (MDRD) Non-Af 48 L, BUN/Creatinine Ratio 25.9 H, Glucose 109 H, Calcium 8.6 07/25/18 06:18: POC Glucose 109 Current Medications Acetaminophen (Tylenol) 650 mg PO Q6H PRN PRN PRN Reason: Mild pain 1-3/Temp > 100.7 F Albuterol Sulfate (Ventolin Aerosols) 2.5 mg INHALATION Q2H PRN PRN PRN Reason: SHORTNESS OF BREATH Albuterol/Ipratropium (Duoneb) 3 ml INHALATION Q4H.RT [facility] Last Admin: 07/25/18 07:00 Dose: 3 ml Aspirin (Aspirin, Baby) 81 mg PO DAILY@0800 [facility] Last Admin: 07/24/18 09:35 Dose: Not Given Cyanocobalamin (Vitamin B12) 1,000 mcg PO DAILY [facility] Last Admin: 07/24/18 09:37 Dose: Not Given Dextrose (D50w Syringe) 0 gm IV X1 PRN; Protocol PRN Reason: Hypoglycemia Enoxaparin Sodium (Lovenox) 30 mg SC DAILY@1000 [facility] Last Admin: 07/24/18 10:19 Dose: 30 mg Ferrous Sulfate (Ferrous Sulfate) 325 mg PO DAILYCM [facility] Last Admin: 07/24/18 09:36 Dose: Not Given Glucagon () 1 mg IM .X1 PRN PRN Reason: Hypoglycemia Piperacillin Sod/Tazobactam (Sod 3.375 gm/ Sodium Chloride) 50 mls @ 12.5 mls/hr IV Q8 [facility] Last Admin: 07/25/18 06:12 Dose: 12.5 mls/hr Potassium Chloride () 10 meq in 100 mls @ 100 mls/hr IV BOLUS Q1H [facility] Stop: 07/25/18 11:59 Insulin Human Lispro (Humalog Kwikpen (Bkc)) 0 unit SQ ACHS [facility]; Protocol Last Admin: 07/25/18 06:18 Dose: Not Given Ondansetron HCl (Zofran) 4 mg IV Q8H PRN PRN PRN Reason: NAUSEA/VOMITING Last Admin: 07/25/18 02:47 Dose: 4 mg Oxycodone HCl (Oxyir) 5 mg PO Q4H PRN PRN Reason: PAIN Pantoprazole Sodium (Protonix) 20 mg PO QHS [facility] Last Admin: 07/24/18 20:09 Dose: Not Given Sodium Chloride () 10 - 20 ml IV UD PRN PRN Reason: Midline Flush Last Admin: 07/25/18 05:22 Dose: 10 ml Medical Necessity - Tobacco Use Smoking Status: Never smoker Assessment/Plan All Active Problems (Last Reviewed 07/22/18 @ 06:06 by Shai Liu MD) Community acquired pneumonia (Acute) Memory change (Acute) Confusion (Acute) Compression fracture (Acute) Acute blood loss anemia (Resolved) Epistaxis (Resolved) 1. Sepsis secondary to community-acquired pneumonia with likely gram-positive organism present on admission/acute hypoxic respiratory failure secondary to pneumonia and now possible aspiration -Based on her respiratory rate and her white count of 15.8 + the previous chest x-ray earlier in the day showing bibasilar pneumonia, she qualifies as sepsis -Her sepsis has resolved with appropriate therapy, however white count this morning is 20.1, will monitor for now -She is currently on BiPAP to improve her oxygenation, given the wheeze and her history of smoking we will add prednisone daily -I had a 25-minute discussion with the daughter on admission about proceeding with hospice and she would like to give her antibiotics in the BiPAP to see if we can recover any function and then she would like to take her home because her mom stated that she would, if she had to , she would like to at home. However I did discuss the issue with Mrs. Rios, and she would not like to proceed with hospice at this time therefore will look at nursing homes versus taking the patient home depending on what the daughter's wishes are. Jennifer would like to go home if possible. Unfortunately the daughter was diagnosed with ALS which she does not want her mother or her family to know, and that she cannot take care of her. She would prefer for her mother went to inpatient hospice, but she is can have an extensive conversation between herself and her mother today to figure out plan of care going forward -Pulse ox on admission was 69% on room air -Continue with Zosyn for now, will discontinue the vancomycin given the negative MRSA screen 2. Coronary artery disease/HLD/HTN/paroxysmal A. fib -Per the daughter a lot of her past medical history is been very stable -Given her sepsis we will hold off on her amiodarone, Norvasc, Coreg, Lasix -Can restart when her respiratory status is more improved 3. DM2 -We will hold her home metformin, her blood sugars on admission were in the 200s -We will give her a sliding scale insulin 4. Decubitus ulcers?unstageable -She has acute ulcers on her heels, and will continue her pain medication as she will be on BiPAP 5. Iron deficiency anemia -Stable, she was 9.5 on admission and is now 8.1 which is consistent with IV fluid dilution -Continue with vitamin B12 and her iron pills 6. GERD -Stable -Continue with PPI 7. Hypokalemia -Potassium is 3.2 today with replacement yesterday, will follow up with mag and phosphorus -She is being replaced and will recheck her BMP in the morning DVT: Lovenox Code Visit Inpatient E&M: 93305 Subs Hosp L2
[2018-07-25] MEDS: Ferrous Sulfate 325 MG Tablet PO (08:12)
[2018-07-25] MEDS: Enoxaparin 30 MG/0.3 ML Syringe SC (08:13)
[2018-07-25] MEDS: predniSONE 20 MG Tablet 40 MG PO (08:13)
[2018-07-25] MEDS: Aspirin 81 MG TAB.CHEW PO (08:19)
[2018-07-25] MEDS: Potassium Chloride 10mEq/100mL 10 MEQ/100 ML IV.SOLN. 100 MEQ IV BOLUS ×4 (08:21→11:48)
[2018-07-25 08:36] LABS: Magnesium 2.5 mg/dL (1.6-2.6); Phosphorus 2.9 mg/dL (2.5-4.9)
[2018-07-25 11:35] LABS: Bedside Glucose 134 mg/dL (70-110)
--- NOTE | 2018-07-25 11:53 | CPS ---
FIO2 DECREASED TO 60%. SATURATION 94%. NURSE AWARE OF CHANGE
--- NOTE | 2018-07-25 16:07 | PCM.DC.SUM ---
<Stephan Laguna - Last Filed: 07/25/18 16:07> Discharge Date and Diagnosis Date of Admission: 07/21/18 Date of Discharge: 07/25/18 - Primary Discharge Diagnosis Active and Suspected Problems (Last Reviewed 07/22/18 @ 06:06 by Shai Liu MD) Acute hypoxic respiratory failure secondary to community acquired pneumonia presumed streptococcal Acute sepsis secondary to above Coronary artery disease Paroxysmal atrial fibrillation Hypertension, hyperlipidemia Type 2 diabetes mellitus Unstageable decubitus ulcers Iron deficiency anemia GERD - Secondary Discharge Diagnosis Chronic Problems (Last Reviewed 07/22/18 @ 06:06 by Shai Liu MD) Breast cancer (Chronic) Falls frequently (Chronic) Anemia (Chronic) Colon cancer (Chronic) Paroxysmal atrial fibrillation (Chronic) HLD (hyperlipidemia) (Chronic) HTN (hypertension) (Chronic) Diabetes mellitus (Chronic) Hypokalemia (Chronic) Left carotid bruit (Chronic) Atherosclerotic heart disease of [place] coronary artery without angina pectoris (Chronic) CVD (cerebrovascular disease) (Chronic) Hospital Course and Treatment Imaging Results: RAD/Chest 1 View (Portable) IMPRESSION: COPD with persistent pulmonary edema and/or pneumonia in both lungs. Consultations 07/23/18 Consult: Onc/Wound/solar/renewable energy sales Routine Comment: Reason for Consult:: bilateral heel pressure injuries Operations: None Procedures: None Summary of Care Provided: Hospital course: The patient is a 83 year old F with past medical history of type 2 diabetes, colon cancer, paroxysmal A. fib, hypertension, hyperlipidemia, who presented to the emergency room from [facility] for cough, shortness of breath. She appeared to have bibasilar pneumonia, community-acquired presumed streptococcal, and she was hypoxic at 69%. She required 15 L oxygen to maintain good saturations. As the patient is DNR Comfort Care at the emergency room it was felt that she should be discharged to hospice, however hospice wanted to the daughter to be talked to prior to this decision to confirm that these were the patient's desires. They were unable to reach the daughter so the patient was admitted to the PCU on telemetry and provided with aerosols, BiPAP therapy, IV antibiotics. The daughter was able to be reached and after further discussion it was decided that therapy for pneumonia would be pursued more aggressively as the patient and family would prefer for her to come home and at home. The patient continued to require high flow oxygen, did not tolerate being off of BiPAP, and was not a candidate for intubation. Her saturations would decline to 80s off of BiPAP, and if she was holding a conversation it would decline to 60s. Even with BiPAP on the day of discharge she demonstrated physical exhaustion and air hunger. Hospice came in and evaluated the patient and felt that she was appropriate for the inpatient unit. Family was agreeable, the patient was agreeable as well, and she is lucid at this time. The patient was discharged to the inpatient hospice unit in guarded condition. This patient was seen by Stephan Laguna PA-C under the supervision of Doctor Norris. [] - Physical Exam General: Alert, Oriented x3, Cooperative HEENT: Atraumatic, PERRLA, EOMI, Normocephalic Neck: Supple, No JVD, Negative Carotid Bruits Lungs: Diminished Cardiovascular: Regular rate, No murmurs Abdomen: Bowel Sounds Present, Soft, Non Tender Extremities: No edema, Capillary Refill Less than 3 Seconds Skin: No rashes, No breakdown Musculoskeletal: No Tenderness to Palpation of Joints or Extremities Neurological: Cranial nerves II-XII grossly intact Psych/Mental Status: Normal Affect, Appropriate, Alert and oriented to time, place, person, mood and affect Vital Signs Temp Pulse Resp BP Pulse Ox 99.4 F H 85 22 H 149/57 H 99 07/25/18 15:45 07/25/18 15:45 07/25/18 15:45 07/25/18 15:45 07/25/18 15:45 Oxygen Flow Rate (L/min) 96 Oxygen Delivery Method Bi-pap Weight: 119 lb 7.849 oz Body Mass Index (BMI) 23.3 Finger Stick Blood Glucose 160 Intake and Output for Last 24 Hours 07/23/18 07/24/18 07/25/18 23:59 23:59 23:59 Intake Total 858 / 858 1148.7 / 1148.7 918 / 918 Output Total 1075 / 1075 700 / 700 1550 / 1550 Balance -217 / -217 448.7 / 448.7 -632 / -632 Microbiology Past 72 Hours 07/22/18 11:50 Nasal Screen MRSA/MSSA - Final Swab (Method) Laboratory Tests Past 24 Hrs 07/25/18 07/25/18 07/25/18 01:59 05:05 05:05 WBC 20.1 H RBC 3.55 L Hgb 9.2 L Hct 29.6 L MCV 83.4 MCH 25.9 L MCHC 31.1 L RDW 17.9 H RDW Differential 53.8 H Plt Count 259 MPV 11.2 Immature Gran % (Auto) 0.700 Neut % (Auto) 91.4 H Lymph % (Auto) 5.4 L [place] % (Auto) 1.6 Eos % (Auto) 0.9 Baso % (Auto) 0.0 Absolute Neuts (auto) 18.4 H Absolute Lymphs (auto) 1.08 Total Counted Not Reportable Specimen Type ART Sample Site R Radial pH 7.42 Bicarbonate Actual 21.8 L POC Total CO2 23 Base Excess -3 L O2 Saturation 90 L O2 % 70 ABG pCO2 33.4 L ABG pO2 57 L Noman Test POS Respiration Rate 12 O2 Delivery Device Bi / C PAP EPAP 8 IPAP 14 Blood Gas Notified Whom [facility]OS[facility] Blood Gas Notified Time 154 Sodium 151 H Potassium 3.2 L Chloride 118 H Carbon Dioxide 26.0 Anion Gap 7 BUN 30 H Creatinine 1.16 H Estim Creat Clear Calc 26.86 Est GFR (MDRD) Af Amer 58 L Est GFR (MDRD) Non-Af 48 L BUN/Creatinine Ratio 25.9 H Glucose 109 H Calcium 8.6 Phosphorus Magnesium 07/25/18 05:05 WBC RBC Hgb Hct MCV MCH MCHC RDW RDW Differential Plt Count MPV Immature Gran % (Auto) Neut % (Auto) Lymph % (Auto) [place] % (Auto) Eos % (Auto) Baso % (Auto) Absolute Neuts (auto) Absolute Lymphs (auto) Total Counted Specimen Type Sample Site pH Bicarbonate Actual POC Total CO2 Base Excess O2 Saturation O2 % ABG pCO2 ABG pO2 Noman Test Respiration Rate O2 Delivery Device EPAP IPAP Blood Gas Notified Whom Blood Gas Notified Time Sodium Potassium Chloride Carbon Dioxide Anion Gap BUN Creatinine Estim Creat Clear Calc Est GFR (MDRD) Af Amer Est GFR (MDRD) Non-Af BUN/Creatinine Ratio Glucose Calcium Phosphorus 2.9 Magnesium 2.5 POC Glucose 07/25/18 07/25/18 07/24/18 11:30 06:18 21:46 POC Glucose 134 H 109 98 05/18/19 16:02 POC Glucose 118 H Discharge Diet: No Restrictions Discharge Activity: Return to Normal Activity Home Medications: Medications to take at Discharge RX: Metformin HCl [Glucophage] 500 mg PO BIDCM 04/13/13 RX: Losartan Potassium [Cozaar] 100 mg PO DAILY 05/11/14 RX: Temazepam [Restoril] 15 mg PO QHS 05/11/14 RX: Aspirin [Aspirin, Baby] 81 mg PO DAILY@0800 01/27/17 RX: Ferrous Sulfate 325 mg PO DAILY 01/27/17 RX: Amiodarone HCl [Cordarone] 200 mg PO QHS 04/06/17 Carvedilol [Coreg] 6.25 mg PO BID 08/06/17 Oxycodone [Oxyir] 5 mg PO Q4H PRN 08/06/17 Amlodipine Besylate 10 mg PO DAILY 07/21/18 Cholecalciferol (Vitamin D3) [Thera-D] 4,000 unit PO DAILY 07/21/18 Cyanocobalamin (Vitamin B-12) [Vitamin B-12] 1,000 mcg PO DAILY 07/21/18 Furosemide [Lasix] 40 mg PO DAILY 07/21/18 Loratadine [Claritin] 10 mg PO DAILY 07/21/18 Multivitamin with Minerals [Multiple Vitamin] 1 tab PO DAILY 07/21/18 Omeprazole 20 mg PO QHS 07/21/18 Oxybutynin Chloride [Ditropan Xl] 10 mg PO DAILY 07/21/18 Piperacil/Tazobactam [Zosyn] 3.375 gm IV Q6H 07/21/18 Polyethylene Glycol 3350 [Miralax] 17 gm PO DAILY 07/21/18 Potassium Chloride [Klor-Con M20] 20 meq PO DAILY 07/21/18 RX: Ascorbic Acid 500 mg PO DAILY 07/21/18 Sennosides/Docusate Sodium [Senna-S Tablet] 2 tab PO DAILY 07/21/18 Thiamine Mononitrate (Vit B1) [Vitamin B-1] 200 mg PO DAILY 07/21/18 Triamcinolone Acetonide [Nasacort] 1 spray NASAL DAILY 07/21/18 Primary Care Physician: Wilian Marin MD [Primary Care Provider] - Disposition: Hospice Medical Facility Minutes spent on discharge:: 35 Patient Condition:: Stable Medical Necessity - Tobacco Use Smoking Status: Never smoker Meaningful Use Info Meaningful Use Diagnoses (Choose all that apply): None applicable <Jonny Norris - Last Filed: 07/31/18 07:18> Discharge Date and Diagnosis - Secondary Discharge Diagnosis Chronic Problems (Last Reviewed 07/22/18 @ 06:06 by Shai Liu MD) Breast cancer (Chronic) Falls frequently (Chronic) Anemia (Chronic) Colon cancer (Chronic) Paroxysmal atrial fibrillation (Chronic) HLD (hyperlipidemia) (Chronic) HTN (hypertension) (Chronic) Diabetes mellitus (Chronic) Hypokalemia (Chronic) Left carotid bruit (Chronic) Atherosclerotic heart disease of [place] coronary artery without angina pectoris (Chronic) CVD (cerebrovascular disease) (Chronic) Hospital Course and Treatment Consultations 07/23/18 Consult: Onc/Wound/solar/renewable energy sales Routine Comment: Reason for Consult:: bilateral heel pressure injuries Summary of Care Provided: The patient is a 83 year old F [] - Physical Exam Vital Signs Temp Pulse Resp BP Pulse Ox 99.4 F H 85 31 H 149/57 H 95 07/25/18 15:45 07/25/18 19:42 07/25/18 19:15 07/25/18 15:45 07/25/18 19:15 Oxygen Flow Rate (L/min) 96 Oxygen Delivery Method Bi-pap Weight: 119 lb 7.849 oz Body Mass Index (BMI) 23.3 Finger Stick Blood Glucose 160 Code Visit Addendum: Dr. Norris I personally examined the patient and reviewed the chart. I agree with the above. 83-year-old female presented to the hospital with sepsis secondary to community-acquired pneumonia and acute hypoxic respiratory failure. She was initially placed on BiPAP for pulse ox of 50%, however we had difficulty going forward and taking her off of the BiPAP and she was a DNR CC. She was started on prednisone because there is a remote history of COPD however this did not improve much and she was also having difficulties with swallowing her pills. There was an extensive discussion about going home with hospice and initially the plan was for discharge at home however hospice met with the patient and said that she would qualify for inpatient hospice at least to get set up prior to going home and in discussion with the mother and daughter they both decided that transitioning to inpatient hospice is what they would like to do at the moment. She was discharged inpatient hospice with the goal of eventual home hospice. Inpatient E&M: [id number] Disch Hosp
--- NOTE | 2018-07-25 16:13 | DS.PCM_ITS ---
<Stephan Laguna - Last Filed: 07/25/18 16:07> Discharge Date and Diagnosis Date of Admission: 07/21/18 Date of Discharge: 07/25/18 - Primary Discharge Diagnosis Active and Suspected Problems (Last Reviewed 07/22/18 @ 06:06 by Shai Liu MD) Acute hypoxic respiratory failure secondary to community acquired pneumonia presumed streptococcal Acute sepsis secondary to above Coronary artery disease Paroxysmal atrial fibrillation Hypertension, hyperlipidemia Type 2 diabetes mellitus Unstageable decubitus ulcers Iron deficiency anemia GERD - Secondary Discharge Diagnosis Chronic Problems (Last Reviewed 07/22/18 @ 06:06 by Shai Liu MD) Breast cancer (Chronic) Falls frequently (Chronic) Anemia (Chronic) Colon cancer (Chronic) Paroxysmal atrial fibrillation (Chronic) HLD (hyperlipidemia) (Chronic) HTN (hypertension) (Chronic) Diabetes mellitus (Chronic) Hypokalemia (Chronic) Left carotid bruit (Chronic) Atherosclerotic heart disease of [place] coronary artery without angina pectoris (Chronic) CVD (cerebrovascular disease) (Chronic) Hospital Course and Treatment Imaging Results: RAD/Chest 1 View (Portable) IMPRESSION: COPD with persistent pulmonary edema and/or pneumonia in both lungs. Consultations 07/23/18 Consult: Onc/Wound/road roller engineer Routine Comment: Reason for Consult:: bilateral heel pressure injuries Operations: None Procedures: None Summary of Care Provided: Hospital course: The patient is a 83 year old F with past medical history of type 2 diabetes, colon cancer, paroxysmal A. fib, hypertension, hyperlipidemia, who presented [facility] from [facility] for cough, shortness of breath. She appeared to have bibasilar pneumonia, community-acquired presumed streptococcal, and she was hypoxic at 69%. She required 15 L oxygen to maintain good saturations. As the patient is DNR Comfort Care at the emergency room it was felt that she should be discharged to hospice, however hospice wanted to the daughter to be talked to prior to this decision to confirm that these were the patient's desires. They were unable to reach the daughter so the patient was admitted to the PCU on telemetry and provided with aerosols, BiPAP therapy, IV antibiotics. The daughter was able to be reached and after further discussion it was decided that therapy for pneumonia would be pursued more aggressively as the patient and family would prefer for her to come home and at home. The p atient continued to require high flow oxygen, did not tolerate being off of BiPAP, and was not a candidate for intubation. Her saturations would decline to 80s off of BiPAP, and if she was holding a conversation it would decline to 60s. Even with BiPAP on the day of discharge she demonstrated physical exhaustion and air hunger. Hospice came in and evaluated the patient and felt that she was appropriate for the inpatient unit. Family was agreeable, the patient was agreeable as well, and she is lucid at this time. The patient was discharged to the inpatient hospice unit in guarded condition. This patient was seen by Stephan Laguna PA-C under the supervision of Doctor Norris. [] - Physical Exam General: Alert, Oriented x3, Cooperative HEENT: Atraumatic, PERRLA, EOMI, Normocephalic Neck: Supple, No JVD, Negative Carotid Bruits Lungs: Diminished Cardiovascular: Regular rate, No murmurs Abdomen: Bowel Sounds Present, Soft, Non Tender Extremities: No edema, Capillary Refill Less than 3 Seconds Skin: No rashes, No breakdown Musculoskeletal: No Tenderness to Palpation of Joints or Extremities Neurological: Cranial nerves II-XII grossly intact Psych/Mental Status: Normal Affect, Appropriate, Alert and oriented to time, place, person, mood and affect Vital Signs Temp Pulse Resp BP Pulse Ox 99.4 F H 85 22 H 149/57 H 99 07/25/18 15:45 07/25/18 15:45 07/25/18 15:45 07/25/18 15:45 07/25/18 15:45 Oxygen Flow Rate (L/min) 96 Oxygen Delivery Method Bi-pap Weight: 119 lb 7.849 oz Body Mass Index (BMI) 23.3 Finger Stick Blood Glucose 160 Intake and Output for Last 24 Hours 07/23/18 07/24/18 07/25/18 23:59 23:59 23:59 Intake Total 858 / 858 1148.7 / 1148.7 918 / 918 Output Total 1075 / 1075 700 / 700 1550 / 1550 Balance -217 / -217 448.7 / 448.7 -632 / -632 Microbiology Past 72 Hours 07/22/18 11:50 Nasal Screen MRSA/MSSA - Final Swab (Method) Laboratory Tests Past 24 Hrs 07/25/18 07/25/1807/25/19 01:59 05:05 05:05 WBC 20.1 H RBC 3.55 L Hgb 9.2 L Hct 29.6 L MCV 83.4 MCH 25.9 L MCHC 31.1 L RDW 17.9 H RDW Differential 53.8 H Plt Count 259 MPV 11.2 Immature Gran % (Auto) 0.700 Neut % (Auto) 91.4 H Lymph % (Auto) 5.4 L [place] % (Auto) 1.6 Eos % (Auto) 0.9 Baso % (Auto) 0.0 Absolute Neuts (auto) 18.4 H Absolute Lymphs (auto) 1.08 Total Counted Not Reportable Specimen Type ART Sample Site R Radial pH 7.42 Bicarbonate Actual 21.8 L POC Total CO2 23 Base Excess -3 L O2 Saturation 90 L O2 % 70 ABG pCO2 33.4 L ABG pO2 57 L Noman Test POS Respiration Rate 12 O2 Delivery Device Bi / C PAP EPAP 8 IPAP 14 Blood Gas Notified Whom [facility] MD Blood Gas Notified Time 154 Sodium 151 H Potassium 3.2 L Chloride 118 H Carbon Dioxide 26.0 Anion Gap 7 BUN 30 H Creatinine 1.16 H Estim Creat Clear Calc 26.86 Est GFR (MDRD) Af Amer 58 L Est GFR (MDRD) Non-Af 48 L BUN/Creatinine Ratio 25.9 H Glucose 109 H Calcium 8.6 Phosphorus Magnesium 07/25/18 05:05 WBC RBC Hgb Hct MCV MCH MCHC RDW RDW Differential Plt Count MPV Immature Gran % (Auto) Neut % (Auto) Lymph % (Auto) [place] % (Auto) Eos % (Auto) Baso % (Auto) Absolute Neuts (auto) Absolute Lymphs (auto) Total Counted Specimen Type Sample Site pH Bicarbonate Actual POC Total CO2 Base Excess O2 Saturation O2 % ABG pCO2 ABG pO2 Noman Test Respiration Rate O2 Delivery Device EPAP IPAP Blood Gas Notified Whom Blood Gas Notified Time Sodium Potassium Chloride Carbon Dioxide Anion Gap BUN Creatinine Estim Creat Clear Calc Est GFR (MDRD) Af Amer Est GFR (MDRD) Non-Af BUN/Creatinine Ratio Glucose Calcium Phosphorus 2.9 Magnesium 2.5 POC Glucose 07/25/18 07/25/18 07/24/18 11:30 06:18 21:46 POC Glucose 134 H 109 98 07/24/18 16:02 POC Glucose 118 H Discharge Diet: No Restrictions Discharge Activity: Return to Normal Activity Home Medications: Medications to take at Discharge RX: Metformin HCl [Glucophage] 500 mg PO BIDCM 04/13/13 RX: Losartan Potassium [Cozaar] 100 mg PO DAILY 05/11/14 RX: Temazepam [Restoril] 15 mg PO QHS 05/11/14 RX: Aspirin [Aspirin, Baby] 81 mg PO DAILY@0800 01/27/17 RX: Ferrous Sulfate 325 mg PO DAILY 01/27/17 RX: Amiodarone HCl [Cordarone] 200 mg PO QHS 04/06/17 Carvedilol [Coreg] 6.25 mg PO BID 08/06/17 Oxycodone [Oxyir] 5 mg PO Q4H PRN 08/06/17 Amlodipine Besylate 10 mg PO DAILY 07/21/18 Cholecalciferol (Vitamin D3) [Thera-D] 4,000 unit PO DAILY 07/21/18 Cyanocobalamin (Vitamin B-12) [Vitamin B-12] 1,000 mcg PO DAILY 07/21/18 Furosemide [Lasix] 40 mg PO DAILY 07/21/18 Loratadine [Claritin] 10 mg PO DAILY 07/21/18 Multivitamin with Minerals [Multiple Vitamin] 1 tab PO DAILY 07/21/18 Omeprazole 20 mg PO QHS 07/21/18 Oxybutynin Chloride [Ditropan Xl] 10 mg PO DAILY 07/21/18 Piperacil/Tazobactam [Zosyn] 3.375 gm IV Q6H 07/21/18 Polyethylene Glycol 3350 [Miralax] 17 gm PO DAILY 07/21/18 Potassium Chloride [Klor-Con M20] 20 meq PO DAILY 07/21/18 RX: Ascorbic Acid 500 mg PO DAILY 07/21/18 Sennosides/Docusate Sodium [Senna-S Tablet] 2 tab PO DAILY 07/21/18 Thiamine Mononitrate (Vit B1) [Vitamin B-1] 200 mg PO DAILY 07/21/18 Triamcinolone Acetonide [Nasacort] 1 spray NASAL DAILY 07/21/18 Primary Care Physician: Wilian Marin MD [Primary Care Provider] - Disposition: Hospice Medical Facility Minutes spent on discharge:: 35 Patient Condition:: Stable Medical Necessity - Tobacco Use Smoking Status: Never smoker Meaningful Use Info Meaningful Use Diagnoses (Choose all that apply): None applicable <MyrnaChantals Carlee - Last Filed: 07/31/18 07:18> Discharge Date and Diagnosis - Secondary Discharge Diagnosis Chronic Problems (Last Reviewed 07/22/18 @ 06:06 by Shai Liu MD) Breast cancer (Chronic) Falls frequently (Chronic) Anemia (Chronic) Colon cancer (Chronic) Paroxysmal atrial fibrillation (Chronic) HLD (hyperlipidemia) (Chronic) HTN (hypertension) (Chronic) Diabetes mellitus (Chronic) Hypokalemia (Chronic) Left carotid bruit (Chronic) Atherosclerotic heart disease of [place] coronary artery without angina pectoris (Chronic) CVD (cerebrovascular disease) (Chronic) Hospital Course and Treatment Consultations 07/23/18 Consult: Onc/Wound/road roller engineer Routine Comment: Reason for Consult:: bilateral heel pressure injuries Summary of Care Provided: The patient is a 83 year old F [] - Physical Exam Vital Signs Temp Pulse Resp BP Pulse Ox 99.4 F H 85 31 H 149/57 H 95 07/25/18 15:45 07/25/18 19:42 07/25/18 19:15 07/25/18 15:45 07/25/18 19:15 Oxygen Flow Rate (L/min) 96 Oxygen Delivery Method Bi-pap Weight: 119 lb 7.849 oz Body Mass Index (BMI) 23.3 Finger Stick Blood Glucose 160 Code Visit Addendum: Dr. Norris I personally examined the patient and reviewed the chart. I agree with the above. 83-year-old female presented to the hospital with sepsis secondary to community-acquired pneumonia and acute hypoxic respiratory failure. She was initially placed on BiPAP for pulse ox of 50%, however we had difficulty going forward and taking her off of the BiPAP and she was a DNR CC. She was started on prednisone because there is a remote history of COPD however this did not improve much and she was also having difficulties with swallowing her pills. There was an extensive discussion about going home with hospice and initially the plan was for discharge at home however hospice met with the patient and said that she would qualify for inpatient hospice at least to get set up prior to g oing home and in discussion with the mother and daughter they both decided that transitioning to inpatient hospice is what they would like to do at the moment. She was discharged inpatient hospice with the goal of eventual home hospice. Inpatient E&M: [id number] Disch Hosp
[2018-07-25 16:30] LABS: Bedside Glucose 129 mg/dL (70-110)
[2018-07-25] MEDS: oxyCODONE 5 MG Tablet PO (17:02)
--- NOTE | 2018-07-25 17:49 | NURSING ---
Called report to Lea FISHER at the [facility]
--- NOTE | 2018-07-25 20:10 | NURSING ---
[facility] HERE TO TAKE PATIENT TO HOSPICE. SON AT BEDSIDE, PATIENT 97% ON BIPAP. REPORT GIVEN
--- NOTE | 2018-07-26 12:50 | CASEMGMT ---
RADHA updated Donald Castro from [facility] that patient went to the Inpatient Hospice Unit. Anny HIGGINS MSW
== END 2018-07-25 20:15 | disposition hospice, inpatient (51) | DRG 871 ==
LOC: ED 20:58 → PCU 22:19
PROVIDERS: Admitting Provider Hospitalist; Emergency Provider Emergency Medicine; Family Provider Family Medicine; PCP Family Medicine; Referring Provider Hospitalist; Visit Provider Family Medicine
DX: A41.9 Sepsis, unspecified organism (principal); J96.01 Acute respiratory failure with hypoxia; J15.4 Pneumonia due to other streptococci; N17.9 Acute kidney failure, unspecified; Z66 Do not resuscitate; E11.9 Type 2 diabetes mellitus without complications; I25.10 Atherosclerotic heart disease of native coronary artery without angina pectoris; D50.9 Iron deficiency anemia, unspecified; L89.620 Pressure ulcer of left heel, unstageable; L89.610 Pressure ulcer of right heel, unstageable; E87.6 Hypokalemia; K21.9 Gastro-esophageal reflux disease without esophagitis; I10 Essential (primary) hypertension; E78.5 Hyperlipidemia, unspecified; R29.6 Repeated falls; I48.0 Paroxysmal atrial fibrillation; Z85.3 Personal history of malignant neoplasm of breast; Z85.038 Personal history of other malignant neoplasm of large intestine; Z79.84 Long term (current) use of oral hypoglycemic drugs
CPT/HCPCS: 36415; 36600; 71045; 80048; 80053; 80202; 81001; 82803; 82962; 83605; 83735; 84100; 85025; 85027; 85610; 85730; 87040; 87081; 87086; 87449; 92526; 92610; 93005; 94002; 94003; 94640; 96361; 96374; 96375; 97110; 97162; 97166; 97530; 97535; 99285; J7030; J7040; J7050; A4216; J1940; J2405